=== PATIENT | male | born 1955 | race Caucasian/White ===

== ENCOUNTER 2020-05-05 13:31 | Inpatient (IN) | payer MEDICARE, OTHER ==
[2020-05-05] VITALS (13 sets, daily range): BP systolic 91–130; BP diastolic 52–82
[~2020-05-05] VITALS: Ht 175.3 cm; Wt 91.5 kg
[~2020-05-05 13:31] MED LIST: HEPARIN for IV BOLUS 10,000 UNIT/10 ML VIAL. IV ONE
[2020-05-05] MEDS ORDERED: MORPHINE SULFATE 4 MG/ML VIAL. IV ONE (13:32)
--- NOTE | 2020-05-05 13:40 | PHYS DOC ---
General Adult EDM: Chief Complaint: CHEST PAIN HPI: HPI: Patient is a 64 year old male who was brought here by EMS from home due to chest pain. Patient was outside cutting grass, he was pushing a lawnmower, he started having severe chest pain, associate with nausea and sweaty, he called EMS who then brought him here for evaluation. On route he did an EKG and a show ST segment elevation, they called here to activate code STEMI. Patient was given full dose aspirin by EMS, 1 dose of nitroglycerin, and 50 mcg of fentanyl IV on route. Upon arrival to the ER, patient was still in severe pain, moderate distress. Patient denies any history of heart disease. No history of diabetes Review of Systems: Review of Systems: Constitutional: Denies fever or chills. [] Eyes: Denies change in visual acuity. [] HENT: Denies nasal congestion or sore throat. [] Respiratory: Denies cough or shortness of breath. [] Cardiovascular: Positive for chest pain GI: Denies abdominal pain, positive for nausea, vomiting, no bloody stools or diarrhea. [] : Denies dysuria. [] Musculoskeletal: Denies back pain or joint pain. [] Integument: Denies rash. [] Neurologic: Denies headache, focal weakness or sensory changes. [] Endocrine: Denies polyuria or polydipsia. [] Lymphatic: Denies swollen glands. [] Psychiatric: Denies depression or anxiety. [] Heart Score: Risk Factors: Risk Factors: DM, Current or recent (<one month) smoker, HTN, HLP, family history of CAD, obesity. Risk Scores: Score 0 - 3: 2.5% MACE over next 6 weeks - Discharge Home Score 4 - 6: 20.3% MACE over next 6 weeks - Admit for Clinical Observation Score 7 - 10: 72.7% MACE over next 6 weeks - Early Invasive Strategies Physical Exam: PE: Constitutional: Well developed, well nourished, in moderate acute distress, non-toxic appearance. [] HENT: Normocephalic, atraumatic, bilateral external ears normal, oropharynx moist, no oral exudates, nose normal. [] Eyes: PERRLA, EOMI, conjunctiva normal, no discharge. [] Neck: Normal range of motion, no tenderness, supple, no stridor. [] Cardiovascular:Heart rate regular rhythm, no murmur [] Lungs & Thorax: Bilateral breath sounds clear to auscultation [] Abdomen: Bowel sounds normal, soft, no tenderness, no masses, no pulsatile masses. [] Skin: Warm, diaphoresis Back: No tenderness, no CVA tenderness. [] Extremities: No tenderness, no cyanosis, no clubbing, ROM intact, no edema. [] Neurologic: Alert and oriented X 3, normal motor function, normal sensory function, no focal deficits noted. [] Psychologic: Affect normal, judgement normal, mood normal. [] EKG: EKG: EKG was done at 1331, heart rate at 73 bpm, ST segment elevation on V2 V3 V4 V5 V6 , I. Radiology/Procedures: Radiology/Procedures: [] Course & Med Decision Making: Course & Med Decision Making Pertinent Labs and Imaging studies reviewed. (See chart for details) Patient is a 64-year-old male who was brought here emergently by EMS due to chest pain, EKG consistent with STEMI. Cardiac Environmental Compliance Engineer team was present at the time patient arrival to ER, Dr. Monique, cutting machine operator helper took the patient to Environmental Compliance Engineer for intervention. Jose Armando Disclaimer: Dragon Disclaimer: This electronic medical record was generated, in whole or in part, using a voice recognition dictation system. Departure Departure Impression: Primary Impression: STEMI (ST elevation myocardial infarction) Disposition: ADMITTED INPATIENT Admitting Physician: YESIKA (Dr. Bro) Condition: STABLE Justicifation of Admission Dx: Justifications for Admission: Justification of Admission Dx: Yes OR: Acute STEMI ROCIO ORELLANA DO May 05, 2020 13:40
[2020-05-05] MEDS ORDERED: ONDANSETRON PF 4 MG/2 ML VIAL. IV PRN (13:45)
[2020-05-05] MEDS ORDERED: IODIXANOL 320 MG/ML 100 ML VIAL. ONE ×2 (13:49→14:20)
[2020-05-05] MEDS ORDERED: fentaNYL PF VIAL 100 MCG/2 ML VIAL ONE (13:49)
[2020-05-05] MEDS ORDERED: HEPARIN for IV BOLUS 10,000 UNIT/10 ML VIAL. ONE (13:50)
[2020-05-05] MEDS ORDERED: MIDAZOLAM HCL/PF 2 MG/2 ML VIAL. ONE (13:50)
[2020-05-05] MEDS ORDERED: BIVALIRUDIN 250 MG VIAL. IV ONE ×2 (13:59→14:30)
[2020-05-05] MEDS ORDERED: AMIODARONE 150 MG/3 ML VIAL ONE (14:08)
[2020-05-05] MEDS ORDERED: ONDANSETRON PF 4 MG/2 ML VIAL. ONE (14:15)
[2020-05-05] MEDS ORDERED: LIDOCAINE 1% Multi-Dose 20 ML VIAL. ONE (14:21)
[2020-05-05] MEDS ORDERED: AMIODARONE 150 MG/3 ML VIAL IVP ONE (14:30)
[2020-05-05] MEDS ORDERED: CLOPIDOGREL BISULFATE 75 MG TABLET PO ONE (14:30)
[2020-05-05] MEDS ORDERED: fentaNYL PF VIAL 100 MCG/2 ML VIAL IV ONE (14:30)
[2020-05-05] MEDS ORDERED: MIDAZOLAM HCL/PF 2 MG/2 ML VIAL. IV ONE (14:30)
[2020-05-05] MEDS ORDERED: LIDOCAINE 1% Multi-Dose 20 ML VIAL. INJ ONE (14:30)
[2020-05-05] MEDS ORDERED: ONDANSETRON PF 4 MG/2 ML VIAL. IVP ONE (14:30)
[2020-05-05] MEDS ORDERED: IODIXANOL 320 MG/ML 100 ML VIAL. IART ONE (14:30)
[2020-05-05] MEDS ORDERED: HEPARIN for IV BOLUS 10,000 UNIT/10 ML VIAL. IV PRN (14:30)
[2020-05-05] MEDS ORDERED: TICAGRELOR 90 MG TABLET. ONE (14:46)
[2020-05-05] MEDS: AMIODARONE 450 MG in IV DEXTROSE 5% 250 ML IV PRN ×2 (14:53→22:45)
[2020-05-05] MEDS ORDERED: CLOPIDOGREL BISULFATE 75 MG TABLET ONE (15:00)
[2020-05-05] MEDS ORDERED: CONTRAST GIVEN. MC PRN (15:00)
[2020-05-05] MEDS ORDERED: HEPARIN 25,000UTS/250ML PREMIX 250 ML IV ONE (15:08)
[2020-05-05] MEDS: HEPARIN 25,000UTS/250ML PREMIX 250 ML IV PRN (15:12)
[2020-05-05] MEDS ORDERED: 0.9 % SODIUM CHLORIDE 10 ML DISP.SYRIN. IV PRN ×2 (15:15→17:00)
[2020-05-05] MEDS ORDERED: TICAGRELOR 90 MG TABLET. PO ONE ×2 (15:15)
[2020-05-05] MEDS ORDERED: oxyCODONE/APAP 5/325 1 TAB TABLET PO PRN (15:15)
[2020-05-05] MEDS ORDERED: ATROPINE 0.5 MG/5 ML DISP.SYRINGE. IV PRN (15:15)
[2020-05-05] MEDS ORDERED: NITROGLYCERIN SUBLINGUAL 0.4 MG BOTTLE OF 25. SL PRN (15:15)
[2020-05-05] MEDS ORDERED: LACTULOSE 20 GM/30 ML SOLUTION. PO PRN (17:00)
[2020-05-05] MEDS ORDERED: ONDANSETRON PF 4 MG/2 ML VIAL. IVP PRN (17:00)
[2020-05-05] MEDS ORDERED: ACETAMINOPHEN 325 MG TABLET. PO PRN (17:00)
--- NOTE | 2020-05-05 17:03 | PDOC1 ---
History and Physical Date of Admission Date of Admission May 05, 2020 Identification/Chief Complaint Chief Complaint My chest hurt Source Source: Chart review, Patient History of Present Illness History of Present Illness Patient is a 64-year-old gentleman with past medical history of Mnire's disease who recently had a procedure in order to surgically treat his condition. Patient was in his usual state of health until this afternoon when he was working in his yard mowing the lawn and came back inside the house due to the heat when he started experiencing chest discomfort over the precordial area which was of a pressure like nature 10 out of 10 intensity with associated diaphoresis tingling in his arms sensation of impending doom nausea. Patient reports having the symptoms lasted at least an hour and he decided to call the EMS services due to the progressive nature of his symptoms. The patient did not report shortness of breath no loss of consciousness no recent angina type of symptoms were reported prior to this incident. Patient denies any recent upper respiratory tract infections no headache blurred vision no strokelike symptoms no palpitations no abdominal pain no nausea vomiting or diarrhea prior to the incident no lower extremity edema no orthopnea no paroxysmal nocturnal dyspnea has been reported. The patient was evaluated in the emergency department found to have a STEMI and was quickly taken to the cardiac Personal Health Coach. Patient is being seen in the ICU at the present time he is on an aortic balloon pump. Patient is not experiencing chest pain at the time of my visit and is hemodynamically stable. Plan of care has been explained detail and all of his concerns were addressed to the best my ability Past Medical History Past Medical History Mnire disease Osteoarthritis Past Surgical History Past Surgical History: Total hip replacement Family History Family History: Other (Reviewed and found negative noncontributory to the present) Current Problem List Problem List Problems Medical Problems: (1) STEMI (ST elevation myocardial infarction) Status: Acute Current Medications Current Medications Current Medications Medications (Trade) Dose Ordered Sig/Akin Start Time Stop Time Status Last Admin Dose Admin Amiodarone HCl (Cordarone) 150 mg 1X ONCE 05/05/20 14:30 05/05/20 14:36 DC 05/05/20 14:59 150 MG Amiodarone HCl 450 mg/Dextrose 259 ml @ 0 mls/hr CONT PRN 05/05/20 14:30 05/05/20 14:53 33.3 MLS/HR Aspirin (Ecotrin) 81 mg DAILYWBKFT 05/06/20 08:00 Atorvastatin Calcium (Lipitor) 40 mg QHS 05/05/20 21:00 Atropine Sulfate (ATROPINE 0.5mg SYRINGE) 0.5 mg PRN 1X PRN 05/05/20 15:15 Bivalirudin (Angiomax) 250 mg 1X ONCE 05/05/20 14:30 05/05/20 14:49 DC 05/05/20 14:58 250 MG Clopidogrel Bisulfate (Plavix) 600 mg 1X ONCE 05/05/20 14:30 05/05/20 15:05 DC Dopamine HCl/ Dextrose 250 ml @ 17.006 mls/ hr 1X ONCE 05/05/20 14:45 05/06/20 05:27 05/05/20 14:06 51.019 MLS/HR Fentanyl Citrate (Fentanyl 2ml Vial) 12.5 mcg 1X ONCE 05/05/20 14:30 05/05/20 14:49 DC 05/05/20 15:00 12.5 MCG Heparin Sodium (Porcine) (Heparin Sodium) 4,000 unit 1X ONCE 05/05/20 13:31 05/05/20 14:57 DC 05/05/20 13:37 4,000 UNIT Heparin Sodium/ Dextrose 250 ml @ As Directed STK-MED ONCE 05/05/20 15:08 05/05/20 15:08 DC Heparin Sodium/ Sodium Chloride (HEPARIN for ARTERIAL LINE FLUSH) 1,000 unit 1X ONCE 05/05/20 14:30 05/05/20 14:49 DC 05/05/20 14:57 1,000 UNIT Info (CONTRAST GIVEN -- Rx MONITORING) 1 each PRN DAILY PRN 05/05/20 15:00 05/07/20 14:59 Iodixanol (Visipaque 320) 100 ml 1X ONCE 05/05/20 14:30 05/05/20 14:49 DC 05/05/20 14:57 215 ML Lidocaine HCl (Lidocaine 1% 20ml Vial) 18 ml 1X ONCE 05/05/20 14:30 05/05/20 14:49 DC 05/05/20 14:58 18 ML Lisinopril (Prinivil) 5 mg DAILY 05/06/20 09:00 Metoprolol Tartrate (Lopressor) 12.5 mg BID 05/05/20 21:00 Midazolam HCl (Versed) 1 mg 1X ONCE 05/05/20 14:30 05/05/20 14:49 DC 05/05/20 15:00 1 MG Morphine Sulfate (Morphine Sulfate) 4 mg 1X ONCE 05/05/20 13:32 05/05/20 14:57 DC 05/05/20 13:38 4 MG Nitroglycerin (Nitrostat) 0.4 mg PRN Q5MIN PRN 05/05/20 15:15 Ondansetron HCl (Zofran) 4 mg 1X ONCE 05/05/20 14:30 05/05/20 14:37 DC 05/05/20 14:59 4 MG Oxycodone/ Acetaminophen (Percocet 5/325) 2 tab PRN Q4HRS PRN 05/05/20 15:15 Sodium Chloride 1,000 ml @ 50 mls/hr Q20H 05/05/20 15:09 Sodium Chloride (Normal Saline Flush) 3 ml QSHIFT PRN 05/05/20 15:15 Ticagrelor (Brilinta) 180 mg 1X ONCE 05/05/20 15:15 05/05/20 15:16 DC Allergies Allergies Allergies Coded Allergies Type Severity Reaction Last Updated Verified No Known Drug Allergies 05/05/20 No ROS Review of System CONSTITUTIONAL: No fever or chills EYES: No recent changes SKIN: No rash or itching CARDIOVASCULAR: No chest pain, syncope, palpitations, or edema RESPIRATORY: No SOB or cough GASTROINTESTINAL: No nausea, vomiting or abdominal pain NEUROLOGICAL: No headaches or weakness ENDOCRINE: No cold or heat intolerance GENITOURINARY: No urgency or frequency of urination MUSCULOSKELETAL: No back pain or joint pain LYMPHATICS: No enlarged lymph nodes PSYCHIATRIC: No anxiety or depression Physical Exam Physical Exam GEN.: No apparent distress. Alert and oriented. HEENT: Head is normocephalic, atraumatic NECK: Supple. LUNGS: Clear to auscultation. HEART: RRR, S1, S2 present. Peripheral pulses intact ABDOMEN: Soft, nontender. Positive bowel sounds. EXTREMITIES: Without any cyanosis. NEUROLOGIC: Normal speech, normal tone PSYCHIATRIC: Normal affect, normal mood. SKIN: No ulcerations Vitals Vitals Vital Signs Date Time Temp Pulse Resp B/P (MAP) Pulse Ox O2 Delivery O2 Flow Rate FiO2 05/05/20 16:00 Nasal Cannula 2.0 05/05/20 16:00 97.6 98 15 126/69 (57) 96 97.6 VTE Prophylaxis Ordered VTE Prophylaxis Devices: Yes VTE Pharmacological Prophylaxi: Yes Assessment/Plan Assessment/Plan STEMI History of Menieres disease History of osteoarthritis Plan: Continue treatment plan as per bus info consultant We will resume home medications once available for review Telemetry Further recommendations based on the clinical course DVT prophylaxis with SCD and teds Justicifation of Admission Dx: Justifications for Admission: Justification of Admission Dx: Comment: (ST elevation myocardial infarction) ARIEL HALL MD May 05, 2020 17:03
--- NOTE | 2020-05-05 17:16 | PDOC2 ---
CONSULT Date of Consult Date of Consult DATE: 05/05/20 TIME: 17:09 Reason for Consult Reason for Consult: chest pain, STEMI Referring Physician Referring Physician: Dr. Bro Identification/Chief Complaint Chief Complaint Chest pain Source Source: Chart review, Patient History of Present Illness Reason for Visit: The patient is a 64-year-old male who developed chest pain earlier today after mowing his lawn. It was severe and he rated it 10 out of 10. It is associated by mild shortness of breath. When it did not resolve for 45 to 60 minutes he called paramedics. EKG by the paramedics suggested an anterior ST elevated myocardial infarction and a STEMI protocol was activated. The patient was met in the emergency room when he arrived. He continues to be in moderate distress. Repeat EKG confirmed ST elevation in the anterior leads suggestive of a LAD lesion. He was treated with aspirin and heparin. Risks and benefits of e mergency cardiac catheterization and possible revascularization were discussed with the patient. He agreed to proceed. Past Medical History Cardiovascular: HTN CENTRAL NERVOUS SYSTEM: Other (Mnire's disease) Past Surgical History Past Surgical History: Total hip replacement Family History Family History: Hypertension Current Problem List Problem List Problems Medical Problems: (1) STEMI (ST elevation myocardial infarction) Status: Acute Current Medications Current Medications Current Medications Ondansetron HCl (Zofran) 4 mg PRN Q8HRS PRN IV NAUSEA/VOMITING; Start 05/05/20 at 13:45; Stop 05/06/20 at 13:44 Iodixanol (Visipaque 320) 100 ml STK-MED ONCE .ROUTE ; Start 05/05/20 at 13:49; Stop 05/05/20 at 13:49; Status DC Fentanyl Citrate (Fentanyl 2ml Vial) 100 mcg STK-MED ONCE .ROUTE ; Start 05/05/20 at 13:49; Stop 05/05/20 at 13:49; Status DC Midazolam HCl (Versed) 2 mg STK-MED ONCE .ROUTE ; Start 05/05/20 at 13:50; Stop 05/05/20 at 13:50; Status DC Heparin Sodium (Porcine) (Heparin Sodium) 10,000 unit STK-MED ONCE .ROUTE ; Start 05/05/20 at 13:50; Stop 05/05/20 at 13:50; Status DC Bivalirudin (Angiomax) 250 mg STK-MED ONCE IV ; Start 05/05/20 at 13:59; Stop 05/05/20 at 13:59; Status DC Dopamine HCl/ Dextrose 250 ml @ As Directed STK-MED ONCE IV ; Start 05/05/20 at 14:02; Stop 05/05/20 at 14:02; Status DC Amiodarone HCl (Cordarone) 150 mg STK-MED ONCE .ROUTE ; Start 05/05/20 at 14:08; Stop 05/05/20 at 14:09; Status DC Ondansetron HCl (Zofran) 4 mg STK-MED ONCE .ROUTE ; Start 05/05/20 at 14:15; Stop 05/05/20 at 14:15; Status DC Heparin Sodium/ Sodium Chloride 500 ml @ As Directed STK-MED ONCE .ROUTE ; Start 05/05/20 at 14:16; Stop 05/05/20 at 14:17; Status DC Iodixanol (Visipaque 320) 100 ml STK-MED ONCE .ROUTE ; Start 05/05/20 at 14:20; Stop 05/05/20 at 14:20; Status DC Lidocaine HCl (Lidocaine 1% 20ml Vial) 20 ml STK-MED ONCE .ROUTE ; Start 0 at 14:21; Stop 05/05/20 at 14:21; Status DC Heparin Sodium/ Sodium Chloride (HEPARIN for ARTERIAL LINE FLUSH) 1,000 unit 1X ONCE IART Last administered on 05/05/20at 14:57; Start 05/05/20 at 14:30; Stop 05/05/20 at 14:49; Status DC Heparin Sodium/ Sodium Chloride (HEPARIN for ARTERIAL LINE FLUSH) 1,000 unit 1X ONCE IART Last administered on 05/05/20at 14:57; Start 05/05/20 at 14:30; Stop 05/05/20 at 14:49; Status DC Midazolam HCl (Versed) 1 mg 1X ONCE IV Last administered on 05/05/20at 15:00; Start 05/05/20 at 14:30; Stop 05/05/20 at 14:49; Status DC Fentanyl Citrate (Fentanyl 2ml Vial) 12.5 mcg 1X ONCE IV Last administered on 05/05/20at 15:00; Start 05/05/20 at 14:30; Stop 05/05/20 at 14:49; Status DC Iodixanol (Visipaque 320) 100 ml 1X ONCE IART Last administered on 05/05/20at 14:57; Start 05/05/20 at 14:30; Stop 05/05/20 at 14:49; Status DC Bivalirudin (Angiomax) 250 mg 1X ONCE IV Last administered on 05/05/20at 14:58; Start 05/05/20 at 14:30; Stop 05/05/20 at 14:49; Status DC Clopidogrel Bisulfate (Plavix) 600 mg 1X ONCE PO ; Start 05/05/20 at 14:30; Stop 05/05/20 at 15:05; Status DC Lidocaine HCl (Lidocaine 1% 20ml Vial) 18 ml 1X ONCE INJ Last administered on 05/05/20at 14:58; Start 05/05/20 at 14:30; Stop 05/05/20 at 14:49; Status DC Amiodarone HCl (Cordarone) 150 mg 1X ONCE IVP Last administered on 05/05/20at 14:59; Start 05/05/20 at 14:30; Stop 05/05/20 at 14:36; Status DC Amiodarone HCl 450 mg/Dextrose 259 ml @ 0 mls/hr CONT PRN IV SEE I/O RECORD Last administered on 05/05/20at 14:53; Start 05/05/20 at 14:30 Ondansetron HCl (Zofran) 4 mg 1X ONCE IVP Last administered on 05/05/20at 14:59; Start 05/05/20 at 14:30; Stop 05/05/20 at 14:37; Status DC Heparin Sodium/ Dextrose 250 ml @ 10 mls/hr CONT PRN IV PER PROTOCOL Last administered on 05/05/20at 15:12; Start 05/05/20 at 14:30 Heparin Sodium (Porcine) (Heparin Sodium) 2,250 unit PRN Q6HRS PRN IV FOR UFH LEVEL LESS THAN 0.2; Start 05/05/20 at 14:30 Heparin Sodium/ Sodium Chloride (HEPARIN for ARTERIAL LINE FLUSH) 1,000 unit 1X ONCE IART Last administered on 05/05/20at 14:57; Start 05/05/20 at 14:30; Stop 05/05/20 at 14:49; Status DC Dopamine HCl/ Dextrose 250 ml @ 17.006 mls/ hr 1X ONCE IV Last administered on 05/05/20at 14:06; Start 05/05/20 at 14:45; Stop 05/06/20 at 05:27 Heparin Sodium (Porcine) (Heparin Sodium) 4,000 unit 1X ONCE IV Last administered on 05/05/20at 13:37; Start 05/05/20 at 13:31; Stop 05/05/20 at 14:57; Status DC Morphine Sulfate (Morphine Sulfate) 4 mg 1X ONCE IV Last administered on 05/05/20at 13:38; Start 05/05/20 at 13:32; Stop 05/05/20 at 14:57; Status DC Ticagrelor (Brilinta) 90 mg STK-MED ONCE .ROUTE ; Start 05/05/20 at 14:46; Stop 05/05/20 at 14:47; Status DC Info (CONTRAST GIVEN -- Rx MONITORING) 1 each PRN DAILY PRN MC SEE COMMENTS; Start 05/05/20 at 15:00; Stop 05/07/20 at 14:59 Ticagrelor (Brilinta) 180 mg 1X ONCE PO Last administered on 05/05/20at 15:11; Start 05/05/20 at 15:15; Stop 05/05/20 at 15:16; Status DC Ticagrelor (Brilinta) 180 mg 1X ONCE PO ; Start 05/05/20 at 15:15; Stop 0 at 15:16; Status DC Heparin Sodium/ Dextrose 250 ml @ As Directed STK-MED ONCE IV ; Start 05/05/20 at 15:08; Stop 05/05/20 at 15:08; Status DC Sodium Chloride (Normal Saline Flush) 3 ml QSHIFT PRN IV AFTER MEDS AND BLOOD DRAWS; Start 05/05/20 at 15:15 Sodium Chloride 1,000 ml @ 50 mls/hr Q20H IV ; Start 05/05/20 at 15:09 Aspirin (Ecotrin) 81 mg DAILYWBKFT PO ; Start 05/06/20 at 08:00 Metoprolol Tartrate (Lopressor) 12.5 mg BID PO ; Start 05/05/20 at 21:00 Lisinopril (Prinivil) 5 mg DAILY PO ; Start 05/06/20 at 09:00 Atorvastatin Calcium (Lipitor) 40 mg QHS PO ; Start 05/05/20 at 21:00 Nitroglycerin (Nitrostat) 0.4 mg PRN Q5MIN PRN SL CHEST PAIN; Start 05/05/20 at 15:15 Atropine Sulfate (ATROPINE 0.5mg SYRINGE) 0.5 mg PRN 1X PRN IV BRADYCARDIA; Start 05/05/20 at 15:15 Oxycodone/ Acetaminophen (Percocet 5/325) 2 tab PRN Q4HRS PRN PO MODERATE PAIN, SEVERE PAIN; Start 05/05/20 at 15:15 Acetaminophen (Tylenol) 650 mg PRN Q6HRS PRN PO Headaches, Temp > 101.5'; Start 05/05/20 at 17:00 Lorazepam (Ativan Inj) 0.5 mg PRN Q6HRS PRN IVP ANXIETY / AGITATION; Start 05/05/20 at 17:00 Ondansetron HCl (Zofran) 4 mg PRN Q6HRS PRN IVP NAUSEA/VOMITING; Start 05/05/20 at 17:00 Sodium Chloride (Normal Saline Flush) 3 ml QSHIFT PRN IV AFTER MEDS AND BLOOD DRAWS; Start 05/05/20 at 17:00; Status UNV Acetaminophen/ Hydrocodone Bitart (Lortab 5/325) 1 tab PRN Q4HRS PRN PO MILD PAIN, 2ND CHOICE; Start 05/05/20 at 17:00; Status UNV Morphine Sulfate (Morphine Sulfate) 1 mg PRN Q1HR PRN IV PAIN; Start 05/05/20 at 17:00; Status UNV Senna/Docusate Sodium (Senna Plus) 1 tab BID PO ; Start 05/05/20 at 21:00; Status UNV Lactulose (Lactulose) 20 gm PRN Q12HR PRN PO CONSTIPATION; Start 05/05/20 at 17:00; Status UNV Allergies Allergies: Coded Allergies: No Known Drug Allergies (Unverified , 05/05/20) ROS Respiratory: YES: Shortness of breath Cardiovascular: yes Chest Pain Physical Exam General: moderate distress HEENT: Atraumatic Lungs: Clear to auscultation Heart: Other (Mildly tachycardic) Abdomen: Normal bowel sounds Vitals VITALS Vital Signs Date Time Temp Pulse Resp B/P (MAP) Pulse Ox O2 Delivery O2 Flow Rate FiO2 05/05/20 16:00 Nasal Cannula 2.0 05/05/20 16:00 97.6 98 15 126/69 (88) 96 97.6 Assessment/Plan Assessment/Plan 1. Presentation and EKG consistent with an anterior ST elevated myocardial infarction. Patient was treated with heparin and aspirin. Initial labs were drawn. Risks and benefits of cardiac catheterization including possible intervention were discussed with the patient. After discussion the patient gave informed consent to proceed. The patient was brought emergently to the cardiac catheterization lab. BRITTANIE GRIFFIN MD May 05, 2020 17:16
[2020-05-05] MEDS ORDERED: MULT-245 PO (18:39)
[2020-05-05] MEDS ORDERED: VITA1TAB31 PO (18:39)
[2020-05-05] MEDS ORDERED: FAMO-63 PO (18:39)
[2020-05-05] MEDS ORDERED: SIMV40TA18 PO (18:39)
[2020-05-05] MEDS ORDERED: SERT50TA PO (18:39)
[2020-05-05] MEDS ORDERED: SILO8CAP2 PO (18:39)
[2020-05-05 19:06] LABS: BASO % 0 % (0-3); EOS % 0 % (0-3); HEMOGLOBIN 16.1 g/dL (13.0-17.5); LYMPH # 0.6 x10^3/uL (1.0-4.8); LYMPH % 4 % (24-48); MEAN CORPUSCULAR HEMOGLOBIN 32 pg (25-35); MEAN CORPUSCULAR HGB CONC 35 g/dL (31-37); MEAN CORPUSCULAR VOLUME 91 fL (79-100); MONO % 6 % (0-9); NEUT # 15.9 x10^3/uL (1.8-7.7); NEUT % 90 % (31-73); PLATELET COUNT 242 x10^3/uL (140-400); RED BLOOD COUNT 5.04 x10^6/uL (4.30-5.70); RED CELL DISTRIBUTION WIDTH 12.9 % (11.5-14.5); WHITE BLOOD COUNT 17.6 x10^3/uL (4.0-11.0)
[2020-05-05 19:24] LABS: CALCIUM 8.7 mg/dL (8.5-10.1); CREATININE 1.4 mg/dL (0.7-1.3); GFR 50.9; POTASSIUM 3.9 mmol/L (3.5-5.1)
[2020-05-05 19:26] LABS: PROTHROMBIN TIME PATIENT 14.5 SEC (11.7-14.0)
[2020-05-05 19:30] LABS: ALBUMIN 4.1 g/dL (3.4-5.0); ALBUMIN/GLOBULIN RATIO 1.3 (1.0-1.7); TOTAL BILIRUBIN 1.1 mg/dL (0.2-1.0); TOTAL PROTEIN 7.3 g/dL (6.4-8.2)
[2020-05-05 19:50] LABS: % BANDS 2 % (0-9); % LYMPHS 4 % (24-48); % MONOS 4 % (0-10); % SEGS 90 % (35-66); PLT ESTIMATE ADEQUATE (ADEQUATE)
[2020-05-05] MEDS: SENNOSIDES/DOCUSATE 8.6/50MG TABLET. PO SCH (20:50)
[2020-05-05] MEDS: IV NORMAL SALINE 1000ML BAG 1,000 ML IV SCH (20:50)
[2020-05-05] MEDS: ATORVASTATIN CALCIUM 20 MG TABLET PO SCH (20:50)
[2020-05-05] MEDS: METOPROLOL TART IMMED RELEASE 25 MG TABLET. PO SCH (20:51)
[2020-05-05] MEDS: CYCLOBENZAPRINE 10 MG TABLET. PO PRN (23:23)
[2020-05-06] VITALS (40 sets, daily range): BP systolic 82–145; BP diastolic 43–86
[2020-05-06] MEDS: ALPRAZolam 0.25 MG TABLET PO PRN ×3 (00:36→14:42)
[2020-05-06] MEDS: MORPHINE SULFATE 2 MG/ML VIAL. IV PRN ×2 (00:58→04:01)
[2020-05-06 02:50] LABS: BASO % 0 % (0-3); CALCIUM 8.6 mg/dL (8.5-10.1); CREATININE 1.5 mg/dL (0.7-1.3); EOS % 0 % (0-3); HEMATOCRIT 47.7 % (39.0-53.0); HEMOGLOBIN 16.4 g/dL (13.0-17.5); LYMPH % 5 % (24-48); MEAN CORPUSCULAR HEMOGLOBIN 32 pg (25-35); MEAN CORPUSCULAR HGB CONC 34 g/dL (31-37); MEAN CORPUSCULAR VOLUME 92 fL (79-100); MONO # 1.2 x10^3/uL (0.0-1.1); MONO % 6 % (0-9); NEUT # 18.9 x10^3/uL (1.8-7.7); NEUT % 90 % (31-73); PLATELET COUNT 261 x10^3/uL (140-400); RED BLOOD COUNT 5.17 x10^6/uL (4.30-5.70); RED CELL DISTRIBUTION WIDTH 13.1 % (11.5-14.5); WHITE BLOOD COUNT 21.1 x10^3/uL (4.0-11.0)
--- NOTE | 2020-05-06 07:20 | EKG ---
[facility] [address] [place] [address] Test Date: 2020-05-06 Test Time: 06:34:32 Pat Name: JEANA ARSHAD Department: Room: Gender: M Organ Grinder: : 1955 Requested By: BRITTANIE GRIFFIN Order Number: [id number] Reading MD: Measurements Intervals [place] Rate: 60 P: 43 MS: 126 QRS: -15 QRSD: 80 T: 16 QT: 422 QTc: 422 Interpretive Statements SINUS RHYTHM LEFTWARD AXIS LOW LIMB LEAD VOLTAGE QRS(T) CONTOUR ABNORMALITY CONSISTENT WITH ANTERIOR INFARCT POSSIBLY RECENT ABNORMAL ECG RI6.02 No previous ECG available for comparison
[2020-05-06] MEDS: ASPIRIN ENTERIC COATED 81 MG TABLET.DR. PO SCH (08:00)
[2020-05-06] MEDS: CYCLOBENZAPRINE 10 MG TABLET. PO PRN (08:23)
[2020-05-06] MEDS: SENNOSIDES/DOCUSATE 8.6/50MG TABLET. PO SCH ×2 (08:23→21:10)
[2020-05-06] MEDS: HYDROcodone/APAP 5/325MG 1 TAB TABLET PO PRN ×2 (08:24→14:45)
[2020-05-06 08:35] LABS: ALBUMIN 3.6 g/dL (3.4-5.0); DIRECT BILIRUBIN 0.2 mg/dL (0.0-0.2); TOTAL BILIRUBIN 0.8 mg/dL (0.2-1.0); TOTAL PROTEIN 6.7 g/dL (6.4-8.2)
[2020-05-06 08:37] LABS: CHOLESTEROL/HDL RATIO 4.6
[2020-05-06] MEDS: METOPROLOL TART IMMED RELEASE 25 MG TABLET. PO SCH ×3 (09:00→19:50)
[2020-05-06] MEDS ORDERED: LISINOPRIL 5 MG TABLET. PO SCH ×2 (09:00→13:00)
[2020-05-06] MEDS: TICAGRELOR 90 MG TABLET. PO SCH ×2 (09:24→21:10)
[2020-05-06] MEDS: HEPARIN 25,000UTS/250ML PREMIX 250 ML IV PRN (10:23)
[2020-05-06] MEDS: IV NORMAL SALINE 1000ML BAG 1,000 ML IV SCH ×2 (10:36→19:00)
--- NOTE | 2020-05-06 10:56 | PDOC ---
CARDIO Progress Notes Date and Time Date of Service 05/06/2020 Time of Evaluation 0940 Subjective Subjective: No Chest Pain, No shortness of breath, No Palpitations, Other (lower back discomfort but tolerable) Vitals Vitals Vital Signs Date Time Temp Pulse Resp B/P (MAP) Pulse Ox O2 Delivery O2 Flow Rate FiO2 05/06/20 09:24 5 Nasal Cannula 2.0 05/06/20 09:00 56 102/52 (69) 05/06/20 08:24 16 05/06/20 07:00 98.0 98.0 Weight Weight [ ] Input and Output Intake and Output Intake and Output 05/06/20 07:00 Intake Total 2484 ml Output Total 2360 ml Balance 124 ml Intake Oral 100 ml IV Total 2384 ml Output Urine Total 1960 ml Emesis 400 ml Laboratory Labs Laboratory Tests Test 05/05/20 18:45 05/05/20 18:47 05/06/20 01:30 05/06/20 07:40 White Blood Count 17.6 x10^3/uL (4.0-11.0) 21.1 x10^3/uL (4.0-11.0) Red Blood Count 5.04 x10^6/uL (4.30-5.70) 5.17 x10^6/uL (4.30-5.70) Hemoglobin 16.1 g/dL (13.0-17.5) 16.4 g/dL (13.0-17.5) Hematocrit 46.0 % (39.0-53.0) 47.7 % (39.0-53.0) Mean Corpuscular Volume 91 fL (79-100) 92 fL (79-100) Mean Corpuscular Hemoglobin 32 pg (25-35) 32 pg (25-35) Mean Corpuscular Hemoglobin Concent 35 g/dL (31-37) 34 g/dL (31-37) Red Cell Distribution Width 12.9 % (11.5-14.5) 13.1 % (11.5-14.5) Platelet Count 242 x10^3/uL (140-400) 261 x10^3/uL (140-400) Neutrophils (%) (Auto) 90 % (31-73) 90 % (31-73) Lymphocytes (%) (Auto) 4 % (24-48) 5 % (24-48) Monocytes (%) (Auto) 6 % (0-9) 6 % (0-9) Eosinophils (%) (Auto) 0 % (0-3) 0 % (0-3) Basophils (%) (Auto) 0 % (0-3) 0 % (0-3) Neutrophils # (Auto) 15.9 x10^3/uL (1.8-7.7) 18.9 x10^3/uL (1.8-7.7) Lymphocytes # (Auto) 0.6 x10^3/uL (1.0-4.8) 1.0 x10^3/uL (1.0-4.8) Monocytes # (Auto) 1.0 x10^3/uL (0.0-1.1) 1.2 x10^3/uL (0.0-1.1) Eosinophils # (Auto) 0.0 x10^3/uL (0.0-0.7) 0.0 x10^3/uL (0.0-0.7) Basophils # (Auto) 0.0 x10^3/uL (0.0-0.2) 0.0 x10^3/uL (0.0-0.2) Segmented Neutrophils % 90 % (35-66) Band Neutrophils % 2 % (0-9) Lymphocytes % 4 % (24-48) Monocytes % 4 % (0-10) Platelet Estimate Adequate (ADEQUATE) Prothrombin Time 14.5 SEC (11.7-14.0) Prothromb Time International Ratio 1.2 (0.8-1.1) Activated Partial Thromboplast Time 52 SEC (24-38) Sodium Level 139 mmol/L (136-145) 138 mmol/L (136-145) Potassium Level 3.9 mmol/L (3.5-5.1) 4.0 mmol/L (3.5-5.1) Chloride Level 104 mmol/L (98-107) 103 mmol/L (98-107) Carbon Dioxide Level 22 mmol/L (21-32) 24 mmol/L (21-32) Anion Gap 13 (6-14) 11 (6-14) Blood Urea Nitrogen 12 mg/dL (8-26) 12 mg/dL (8-26) Creatinine 1.4 mg/dL (0.7-1.3) 1.5 mg/dL (0.7-1.3) Estimated GFR (Cockcroft-Gault) 50.9 47.0 BUN/Creatinine Ratio 9 (6-20) Glucose Level 145 mg/dL (70-99) 158 mg/dL (70-99) Calcium Level 8.7 mg/dL (8.5-10.1) 8.6 mg/dL (8.5-10.1) Magnesium Level 2.0 mg/dL (1.8-2.4) Total Bilirubin 1.1 mg/dL (0.2-1.0) 0.8 mg/dL (0.2-1.0) Aspartate Amino Transf (AST/SGOT) 659 U/L (15-37) 560 U/L (15-37) Alanine Aminotransferase (ALT/SGPT) 126 U/L (16-63) 132 U/L (16-63) Alkaline Phosphatase 71 U/L (46-116) 63 U/L (46-116) Troponin I Quantitative 321.556 ng/mL (0.000-0.055) 209.360 ng/mL (0.000-0.055) 169.399 ng/mL (0.000-0.055) WT-Dbk-P-Type Natriuretic Peptide 345 pg/mL (0-124) Total Protein 7.3 g/dL (6.4-8.2) 6.7 g/dL (6.4-8.2) Albumin 4.1 g/dL (3.4-5.0) 3.6 g/dL (3.4-5.0) Albumin/Globulin Ratio 1.3 (1.0-1.7) Lipase 76 U/L (73-393) Heparin Anti-Xa Act, Unfractionated 0.18 IU/mL (0.30-0.70) 0.51 IU/mL (0.30-0.70) 0.47 IU/mL (0.30-0.70) Direct Bilirubin 0.2 mg/dL (0.0-0.2) Triglycerides Level 200 mg/dL (0-150) Cholesterol Level 204 mg/dL (0-200) LDL Cholesterol, Calculated 120 mg/dL (0-100) VLDL Cholesterol, Calculated 40 mg/dL (0-40) Non-HDL Cholesterol Calculated 160 mg/dL (0-129) HDL Cholesterol 44 mg/dL (40-60) Cholesterol/HDL Ratio 4.6 Thyroid Stimulating Hormone (TSH) 0.364 uIU/mL (0.358-3.74) Physical Exam HEENT: Neck Supple W Full Motion Chest: Symmetric LUNGS: Other (diminished bases) Heart: RRR (SR) Abdomen: Soft N/T Extremities: No Edema, No Calf Tenderness Neurology: alert, oriented, follow commands Other Exams IABP in place, right groin sheath site intact, no erythema or swelling, neurova scular status to bilateral LE intact. Assessment Assessment 1. Anterior STEMI: S/P PCI/ERICKA to LAD 2. HLP: not on goal 3. Transaminitis: due to cardiogenic shock 4. Cardiogenic shock 5. Tobaccoism 6. Mild AMBER 7. Reperfusion arrhythmias: NSVTs. Recommendations 1. ASA/brilinta 2. TTE today. Continue IABP 1:1 ration and will reevaluate tomorrow for possible removal 3. Initiate GDMT per BP trend. Optimize statin. Hold ACEi/BB for now with low BP trend. IV hydrate as tolerated. 4. Cardiac rehab, smoking cessation 5. Heparin drip, dopamine, and amiodarone. Justicifation of Admission Dx: Justifications for Admission: Justification of Admission Dx: Yes [place]: Acute STEMI HELLEN MARIA APRN May 06, 2020 10:56
--- NOTE | 2020-05-06 11:00 | CARD ---
MR#: [id number] Date of Study: 05/06/2020 Ordering Physician: HELLEN MARIA, Referring Physician: HELLEN MARIA, Tech: Ana Paula Cedeño [facility] APPROVED REPORT EXAM: Two-dimensional and M-mode echocardiogram with Doppler and color Doppler. Other Information Quality : Good INDICATION STEMI 2D DIMENSIONS RVDd2.9 (2.9-3.5cm)Left Atrium(2D)3.0 (1.6-4.0cm) IVSd0.9 (0.7-1.1cm)Aortic Root(2D)3.3 (2.0-3.7cm) LVDd5.6 (3.9-5.9cm)LVOT Diameter2.1 (1.8-2.4cm) PWd0.8 (0.7-1.1cm)LVDs5.3 (2.5-4.0cm) FS (%) 5.3 %SV18.0 ml Aortic Valve AoV Peak Beto.130.1cm/sAoV VTI21.3cm AO Peak GR.6.8mmHgLVOT VTI 16.62cm AO Mean GR.4mmHgAVA (VTI)2.59cm2 Mitral Valve MV E Fszjogvl64.3cm/sMV DECEL EBXL478iu MV A Jtzvinnk89.3cm/sE/A Ratio0.7 TDI Lateral E' P. V5.79cm/sMedial E' P. V6.31cm/s E/Lateral E'9.0E/Medial E'8.3 Tricuspid Valve TR P. Uwivogmt625di/sRAP SCIHIUFV2hpYm TR Peak Gr.71oyRvXJNZ92azOt Pulmonary Vein S1 Drhspgpt10.2cm/sS2 Zhrzioan27.42cm/s D2 Kumjrrwk93.4cm/s LEFT VENTRICLE The Left Ventricle is mildly dilated. There is normal left ventricular wall thickness. Left ventricle systolic function is severely impaired. The Ejection Fraction is 20-25%. There is apical akinesis Th ere is severe hypokinesis of the distal anterior and mid to distal septal busch. Transmitral Doppler flow pattern is Grade I-abnormal relaxation pattern. RIGHT VENTRICLE The right ventricle is normal size. The right ventricular systolic function is normal. ATRIA The left atrium size is normal. The right atrium size is normal. The interatrial septum is intact wit h no evidence for an atrial septal defect or patent foramen ovale as noted on 2-D or Doppler imaging. AORTIC VALVE The aortic valve is calcified but opens well. Doppler and Color Flow revealed no significant aortic r egurgitation. There is no significant aortic valvular stenosis. MITRAL VALVE The mitral valve is normal in structure and function. There is no evidence of mitral valve prolapse b ut the anterior mitral valve leaflet is redundant. There is no mitral valve stenosis. Doppler and Col or Flow revealed no mitral valve regurgitation noted. TRICUSPID VALVE The tricuspid valve is normal in structure and function. Doppler and Color Flow revealed trace tricus pid regurgitation. There is mild pulmonary hypertension. The PA pressure was estimated at 33 mmHg. Th ere is no tricuspid valve stenosis. PULMONIC VALVE The pulmonic valve is not well visualized. Doppler and Color Flow revealed no pulmonic valvular regur gitation. There is no pulmonic valvular stenosis. GREAT VESSELS The aortic root is normal in size. The ascending aorta is normal in size. The IVC is normal in size a nd collapses >50% with inspiration. PERICARDIAL EFFUSION There is no evidence of significant pericardial effusion. Critical Notification Critical Value: No <Conclusion> The Left Ventricle is mildly dilated. Left ventricle systolic function is severely impaired. The Ejection Fraction is 20-25%. There is apical akinesis There is severe hypokinesis of the distal anterior and mid to distal septal busch. Doppler and Color Flow revealed no significant aortic regurgitation. There is no significant aortic valvular stenosis. There is no evidence of mitral valve prolapse but the anterior mitral valve leaflet is redundant. Doppler and Color Flow revealed trace tricuspid regurgitation. There is mild pulmonary hypertension. The PA pressure was estimated at 33 mmHg. Signed by : Satish Balderas MD Electronically Approved : 05/06/2020 11:00:00
--- NOTE | 2020-05-06 11:40 | NUR ---
7-1200 NN Fulminating back ache Repositioned w meds as ordered/ later assessment reported to have provided relief /improved comfort. level.Family members at bedside then home to rest. Bedside echo/results pending . Able to doze at long intervals with med assist. Phone report w Dr Alcala. Order changes noted. AM metoprolol held Remains on Dopamine at this time .See flow sheets for specifics. IVF increase to 100H. Output hlding form 30-50l/H now. Denies physical c/o chest kathy. Continue POC
--- NOTE | 2020-05-06 12:01 | CARD ---
MR#: [id number] Date of Study: 05/05/2020 Ordering Physician: BRITTANIE BALDERAS, Referring Physician: BRITTANIE BALDERAS, Angel: Marla Mabry RT (R) APPROVED REPORT Procedures Selective coronary angiogram 2 drug-eluting stents placed to a proximal LAD occlusion Intra-aortic balloon pump The patient is a 64-year-old male who developed chest pain at home. Paramedics were called and their EKG suggested an anterior ST elevated myocardial infarction. Aspirin and heparin were given. Wilbert dueñas was met upon arrival in the emergency room. Repeat EKG confirmed the diagnosis. Risks and benefi ts of emergency cardiac catheterization and possible revascularization were discussed with the ricprieto nilo. He agreed to proceed. After informed consent was obtained the patient was brought to the catheterization lab. The area the right femoral artery was prepared in the usual manner with Betadine, sterile draping and local anest hetic. An 18-gauge needle was used to enter the right femoral artery, a wire placed and a 6 [place] s milla placed over the wire. Using a J-wire,a 6 [place] Zachery right diagnostic catheter was passed to the ascending aorta and used to engage the right coronary artery. Sequential injections in various views were obtained. A 6 [place] XB 3.5 guide was used to engage the left coronary system. Sequenti al injections in various views were obtained. Injection showed proximal occlusion of the LAD. We pr oceeded to revascularize the vessel. Angiomax was used as per protocol. A PT choice wire was used to cross the lesion. Initial dilatatio ns were with a 3.0 x 20 Euphora balloon with 3 inflations at 8 jone for 20 seconds. Next a 3.0 x 26 R esolute [place] drug-eluting stent was deployed with 1 inflation at 15 jone for 15 seconds. This covered the bulk of the lesion, however some proximal disease was still present and a second 3.0 x 15 Resolu te [place] stent was deployed in overlapping fashion in the proximal part of the vessel. It was deploye d with 1 inflation at 17 jone for 15 seconds. 3 additional inflations covering the length of the sten t were employed with the same balloon at 17 seconds for 10 seconds each. Following this flow was res tored throughout the LAD including the distal vessel. The guiding system was removed. Secondary to the patient's decreased blood pressure and large anterior infarct an IABP was placed through the pre- existing right femoral sheath. It was placed without difficulty. The patient was treated with dopam ine, amiodarone and the balloon pump as noted above. He was then moved to the intensive care unit i n serious condition. Findings. Hemodynamics. Aortic root 94/60 Coronaries Left main. The left main was a normal size vessel without lesions. Left anterior descending. The LAD was a moderately large vessel with a proximal occlusion. Left circumflex. Left circumflex was a moderate size vessel with no significant lesions. Right coronary artery. The right coronary moderate was a moderate size vessel with a mid greater keeley n 90% lesion. <Conclusion> ST elevated myocardial infarction secondary to a proximal occlusion of the LAD. Successful stenting of the LAD lesion restoring flow with 0% residual lesion. Greater than 90% mid right coronary lesion. Successful placement of an aortic balloon pump. Fluoroscopy time 13.5 minutes. Dose 57 Gycm squared Contrast to 150 mil Sedation time 90 minutes Signed by : Brittanie Balderas MD Electronically Approved : 05/06/2020 12:00:42
--- NOTE | 2020-05-06 13:41 | PDOC ---
[facility] PROGRESS NOTE Chief Complaint Chief Complaint Acute STEMI History of Present Illness History of Present Illness 05/06/20 Patient seen and examined Chart reviewed Discussed with RN O2 nasal canula Troponin I: 209.36 EF: 20-35% Amiodarone drip Vitals/I&O Vitals/I&O: Vital Signs Date Time Temp Pulse Resp B/P (MAP) Pulse Ox O2 Delivery O2 Flow Rate FiO2 05/06/20 13:00 98.3 59 12 107/52 (70) 98 Room Air 98.3 05/06/20 12:07 2.0 I & O 05/05/20 05/05/20 05/06/20 15:00 23:00 07:00 Intake Total 100 ml 2384 ml Output Total 1825 ml 535 ml Balance -1725 ml 1849 ml Physical Exam General: Alert, Cooperative, No acute distress, moderate distress Heart: Regular rate, Normal S1, Normal S2, No murmurs, Other (Mildly tachycardic) Lungs: Clear Abdomen: Normal bowel sounds Extremities: Normal pulses Skin: No significant lesion Labs Labs: Laboratory Tests Test 05/05/20 18:45 05/05/20 18:47 05/06/20 01:30 05/06/20 07:40 White Blood Count 17.6 x10^3/uL (4.0-11.0) 21.1 x10^3/uL (4.0-11.0) Red Blood Count 5.04 x10^6/uL (4.30-5.70) 5.17 x10^6/uL (4.30-5.70) Hemoglobin 16.1 g/dL (13.0-17.5) 16.4 g/dL (13.0-17.5) Hematocrit 46.0 % (39.0-53.0) 47.7 % (39.0-53.0) Mean Corpuscular Volume 91 fL (79-100) 92 fL (79-100) Mean Corpuscular Hemoglobin 32 pg (25-35) 32 pg (25-35) Mean Corpuscular Hemoglobin Concent 35 g/dL (31-37) 34 g/dL (31-37) Red Cell Distribution Width 12.9 % (11.5-14.5) 13.1 % (11.5-14.5) Platelet Count 242 x10^3/uL (140-400) 261 x10^3/uL (140-400) Neutrophils (%) (Auto) 90 % (31-73) 90 % (31-73) Lymphocytes (%) (Auto) 4 % (24-48) 5 % (24-48) Monocytes (%) (Auto) 6 % (0-9) 6 % (0-9) Eosinophils (%) (Auto) 0 % (0-3) 0 % (0-3) Basophils (%) (Auto) 0 % (0-3) 0 % (0-3) Neutrophils # (Auto) 15.9 x10^3/uL (1.8-7.7) 18.9 x10^3/uL (1.8-7.7) Lymphocytes # (Auto) 0.6 x10^3/uL (1.0-4.8) 1.0 x10^3/uL (1.0-4.8) Monocytes # (Auto) 1.0 x10^3/uL (0.0-1.1) 1.2 x10^3/uL (0.0-1.1) Eosinophils # (Auto) 0.0 x10^3/uL (0.0-0.7) 0.0 x10^3/uL (0.0-0.7) Basophils # (Auto) 0.0 x10^3/uL (0.0-0.2) 0.0 x10^3/uL (0.0-0.2) Segmented Neutrophils % 90 % (35-66) Band Neutrophils % 2 % (0-9) Lymphocytes % 4 % (24-48) Monocytes % 4 % (0-10) Platelet Estimate Adequate (ADEQUATE) Prothrombin Time 14.5 SEC (11.7-14.0) Prothromb Time International Ratio 1.2 (0.8-1.1) Activated Partial Thromboplast Time 52 SEC (24-38) Sodium Level 139 mmol/L (136-145) 138 mmol/L (136-145) Potassium Level 3.9 mmol/L (3.5-5.1) 4.0 mmol/L (3.5-5.1) Chloride Level 104 mmol/L (98-107) 103 mmol/L (98-107) Carbon Dioxide Level 22 mmol/L (21-32) 24 mmol/L (21-32) Anion Gap 13 (6-14) 11 (6-14) Blood Urea Nitrogen 12 mg/dL (8-26) 12 mg/dL (8-26) Creatinine 1.4 mg/dL (0.7-1.3) 1.5 mg/dL (0.7-1.3) Estimated GFR (Cockcroft-Gault) 50.9 47.0 BUN/Creatinine Ratio 9 (6-20) Glucose Level 145 mg/dL (70-99) 158 mg/dL (70-99) Calcium Level 8.7 mg/dL (8.5-10.1) 8.6 mg/dL (8.5-10.1) Magnesium Level 2.0 mg/dL (1.8-2.4) Total Bilirubin 1.1 mg/dL (0.2-1.0) 0.8 mg/dL (0.2-1.0) Aspartate Amino Transf (AST/SGOT) 659 U/L (15-37) 560 U/L (15-37) Alanine Aminotransferase (ALT/SGPT) 126 U/L (16-63) 132 U/L (16-63) Alkaline Phosphatase 71 U/L (46-116) 63 U/L (46-116) Troponin I Quantitative 321.556 ng/mL (0.000-0.055) 209.360 ng/mL (0.000-0.055) 169.399 ng/mL (0.000-0.055) FF-Pno-K-Type Natriuretic Peptide 345 pg/mL (0-124) Total Protein 7.3 g/dL (6.4-8.2) 6.7 g/dL (6.4-8.2) Albumin 4.1 g/dL (3.4-5.0) 3.6 g/dL (3.4-5.0) Albumin/Globulin Ratio 1.3 (1.0-1.7) Lipase 76 U/L (73-393) Heparin Anti-Xa Act, Unfractionated 0.18 IU/mL (0.30-0.70) 0.51 IU/mL (0.30-0.70) 0.47 IU/mL (0.30-0.70) Direct Bilirubin 0.2 mg/dL (0.0-0.2) Triglycerides Level 200 mg/dL (0-150) Cholesterol Level 204 mg/dL (0-200) LDL Cholesterol, Calculated 120 mg/dL (0-100) VLDL Cholesterol, Calculated 40 mg/dL (0-40) Non-HDL Cholesterol Calculated 160 mg/dL (0-129) HDL Cholesterol 44 mg/dL (40-60) Cholesterol/HDL Ratio 4.6 Thyroid Stimulating Hormone (TSH) 0.364 uIU/mL (0.358-3.74) Assessment and Plan Assessmemt and Plan Problems Medical Problems: (1) STEMI (ST elevation myocardial infarction) Status: Acute Assessment: - Acute STEMI - Ejection fraction: 20-25% - On balloon pump - Mildly dilated LV Plan: - ICU monitoring - Heparin drip - Dopamine drip - Continue balloon pump - Trend labs - Home meds - Clear liquid diet - Plan is to go back to skilled labor and do an RCA stent Total time 32-minute Comment Review of Relevant I have reviewed the following items francisca (where applicable) has been applied. Medications: Current Medications Medications (Trade) Dose Ordered Sig/Akin Route PRN Reason Start Time Stop Time Status Last Admin Dose Admin Heparin Sodium/ Sodium Chloride (HEPARIN for ARTERIAL LINE FLUSH) 1,000 unit 1X ONCE IART 05/05/20 14:30 05/05/20 14:49 DC 05/05/20 14:57 Heparin Sodium/ Sodium Chloride (HEPARIN for ARTERIAL LINE FLUSH) 1,000 unit 1X ONCE IART 05/05/20 14:30 05/05/20 14:49 DC 05/05/20 14:57 Midazolam HCl (Versed) 1 mg 1X ONCE IV 05/05/20 14:30 05/05/20 14:49 DC 05/05/20 15:00 Fentanyl Citrate (Fentanyl 2ml Vial) 12.5 mcg 1X ONCE IV 05/05/20 14:30 05/05/20 14:49 DC 05/05/20 15:00 Iodixanol (Visipaque 320) 100 ml 1X ONCE IART 05/05/20 14:30 05/05/20 14:49 DC 05/05/20 14:57 Bivalirudin (Angiomax) 250 mg 1X ONCE IV 05/05/20 14:30 05/05/20 14:49 DC 05/05/20 14:58 Lidocaine HCl (Lidocaine 1% 20ml Vial) 18 ml 1X ONCE INJ 05/05/20 14:30 05/05/20 14:49 DC 05/05/20 14:58 Amiodarone HCl (Cordarone) 150 mg 1X ONCE IVP 05/05/20 14:30 05/05/20 14:36 DC 05/05/20 14:59 Amiodarone HCl 450 mg/Dextrose 259 ml @ 0 mls/hr CONT PRN IV SEE I/O RECORD 05/05/20 14:30 05/05/20 22:46 DC 05/05/20 22:45 Ondansetron HCl (Zofran) 4 mg 1X ONCE IVP 05/05/20 14:30 05/05/20 14:37 DC 05/05/20 14:59 Heparin Sodium/ Dextrose 250 ml @ 10 mls/hr CONT PRN IV PER PROTOCOL 05/05/20 14:30 05/06/20 10:23 Heparin Sodium (Porcine) (Heparin Sodium) 2,250 unit PRN Q6HRS PRN IV FOR UFH LEVEL LESS THAN 0.2 05/05/20 14:30 05/05/20 19:42 Heparin Sodium/ Sodium Chloride (HEPARIN for ARTERIAL LINE FLUSH) 1,000 unit 1X ONCE IART 05/05/20 14:30 05/05/20 14:49 DC 05/05/20 14:57 Dopamine HCl/ Dextrose 250 ml @ 17.006 mls/ hr 1X ONCE IV 05/05/20 14:45 05/06/20 05:27 DC 05/05/20 14:06 Ticagrelor (Brilinta) 180 mg 1X ONCE PO 05/05/20 15:15 05/05/20 15:16 DC 05/05/20 15:11 Ticagrelor (Brilinta) 180 mg 1X ONCE PO 05/05/20 15:15 05/05/20 15:16 DC 05/05/20 17:45 Sodium Chloride 1,000 ml @ 50 mls/hr Q20H IV 05/05/20 15:09 05/06/20 10:41 DC 05/06/20 10:36 Aspirin (Ecotrin) 81 mg DAILYWBKFT PO 05/06/20 08:00 05/06/20 08:00 Metoprolol Tartrate (Lopressor) 12.5 mg BID PO 05/05/20 21:00 05/06/20 10:56 DC 05/05/20 20:51 Atorvastatin Calcium (Lipitor) 40 mg QHS PO 05/05/20 21:00 05/05/20 20:50 Ondansetron HCl (Zofran) 4 mg PRN Q6HRS PRN IVP NAUSEA/VOMITING 05/05/20 17:00 05/05/20 21:12 Acetaminophen/ Hydrocodone Bitart (Lortab 5/325) 1 tab PRN Q4HRS PRN PO MILD PAIN 1-3 05/05/20 17:00 05/06/20 08:24 Morphine Sulfate (Morphine Sulfate) 1 mg PRN Q1HR PRN IV PAIN 05/05/20 17:00 05/06/20 04:01 Senna/Docusate Sodium (Senna Plus) 1 tab BID PO 05/05/20 21:00 05/06/20 08:23 Dopamine HCl/ Dextrose 250 ml @ 16.988 mls/ hr CONT PRN IV SEE I/O RECORD 05/05/20 20:00 05/06/20 10:35 Alprazolam (Xanax) 0.25 mg PRN Q6HRS PRN PO ANXIETY / AGITATION 05/05/20 20:45 05/06/20 08:23 Cyclobenzaprine HCl (Flexeril) 10 mg PRN DAILY PRN PO MUSCLE SPASMS 05/05/20 20:45 05/06/20 08:23 Ticagrelor (Brilinta) 90 mg BID PO 05/06/20 09:00 05/06/20 09:24 Justicifation of Admission Dx: Justifications for Admission: Justification of Admission Dx: Yes CT: Acute STEMI ARELIS BOLANOS III DO May 06, 2020 13:41
--- NOTE | 2020-05-06 14:21 | NUR ---
SS following for discharge planning. SS reviewed pt chart and discussed with pt RN. Pt is from home with spouse and is currently requiring oxygen. Per RN, pt went [facility] 05[facility]. Pt had two stents. Pt has 90% RCA occlusion and needs stent. SS will continue to follow for discharge planning.
--- NOTE | 2020-05-06 14:42 | RAD ---
INDICATION: Reason: cardiomyopathy / Spl. Instructions: / History: COMPARISON: None. FINDINGS: Single view of chest obtained. Presumed balloon pump tip is identified at the proximal aspect of the descending thoracic aorta near junction with aortic arch. No focal airspace consolidation or pulmonary edema. IMPRESSION: * Balloon pump without focal airspace consolidation. Electronically signed by: Ryan Graff MD (05/06/2020 2:39 PM) [id number]
[2020-05-06] MEDS: AMIODARONE 450 MG in IV DEXTROSE 5% 250 ML IV PRN (16:19)
--- NOTE | 2020-05-06 16:52 | NUR ---
1600 Able to doze intermittently w assist of medications/back pain relief. family at bedside ,good support for patient. Verbal communication w son Ever and daughter. Denies c/ o CP or symptoms that brought him to hospital
--- NOTE | 2020-05-06 18:29 | NUR ---
Copy Echo report,pre/post EKGs,hospital folder home (with patients permission),as well as printed teaching information( meds.W[place],arrhythmia info,heart cath etc) after verbal teaching covered with patient this afternoon prior to family taking home. Questions encouraged. IABP to reman n place till am/poss Sunday w PTCA/stent of circ to be done this coming Sunday
[2020-05-06] MEDS: ATORVASTATIN CALCIUM 20 MG TABLET PO SCH (21:10)
[2020-05-07] VITALS (30 sets, daily range): BP systolic 82–127; BP diastolic 43–81
[2020-05-07 00:08] LABS: HEMOGLOBIN A1C 5.5 % (4.8-5.6)
[2020-05-07] MEDS: ALPRAZolam 0.25 MG TABLET PO PRN ×2 (00:11→07:55)
[2020-05-07] MEDS: HYDROcodone/APAP 5/325MG 1 TAB TABLET PO PRN ×2 (00:12→05:27)
[2020-05-07] MEDS: IV NORMAL SALINE 1000ML BAG 1,000 ML IV SCH ×2 (01:04→14:00)
[2020-05-07 01:10] LABS: BILIRUBIN,URINE NEGATIVE (NEG); CLARITY,URINE CLEAR; COLOR,URINE YELLOW; NITRITE,URINE NEGATIVE (NEG); PH,URINE 5.5 (<5.0-8.0); PROTEIN,URINE NEGATIVE (NEG-TRACE); UROBILINOGEN,URINE 0.2 mg/dL (0.2 mg/dL)
[2020-05-07 01:21] LABS: SQUAMOUS EPITHELIAL CELL,UR OCC /LPF
[2020-05-07 01:22] LABS: BACTERIA,URINE 0 /HPF (0-FEW); RBC,URINE 0 /HPF (0-2); WBC,URINE OCC /HPF (0-4)
[2020-05-07] MEDS: HEPARIN 25,000UTS/250ML PREMIX 250 ML IV PRN (05:26)
[2020-05-07] MEDS: ASPIRIN ENTERIC COATED 81 MG TABLET.DR. PO SCH (07:55)
[2020-05-07] MEDS: AMIODARONE 450 MG in IV DEXTROSE 5% 250 ML IV PRN (08:06)
[2020-05-07] MEDS ORDERED: ANTI-COAG MONITOR BY PHARMACY. MC PRN (09:00)
[2020-05-07] MEDS: SENNOSIDES/DOCUSATE 8.6/50MG TABLET. PO SCH ×2 (09:00→20:40)
[2020-05-07] MEDS: TICAGRELOR 90 MG TABLET. PO SCH ×2 (09:00→20:39)
[2020-05-07] MEDS: METOPROLOL TART IMMED RELEASE 25 MG TABLET. PO SCH ×2 (09:00→20:34)
--- NOTE | 2020-05-07 09:07 | PDOC ---
PROGRESS NOTES Chief Complaint Chief Complaint IMPRESSION Acute STEMI IE, ST elevated myocardial infarction secondary to a proximal occlusion of the LAD. Successful stenting of the LAD lesion restoring flow with 0% residual lesion. Greater than 90% mid right coronary lesion. TOBACCO ABUSE DISORDER Successful placement of an aortic balloon pump. Left ventricle systolic function is severely impaired. The Ejection Fraction is 20-25%. There is apical akinesis There is severe hypokinesis of the distal anterior and mid to distal septal busch. balloon pump tip is identified at the proximal aspect of the descending thoracic aorta near junction with aortic arch. No focal airspace consolidation or pulmonary edema. DIABETES A1C 36 MIN CC TIME History of Present Illness Reason for Visit: The patient is a 64-year-old male who developed chest pain earlier today after mowing his lawn. It was severe and he rated it 10 out of 10. It is associated by mild shortness of breath. When it did not resolve for 45 to 60 minutes he called paramedics. EKG by the paramedics suggested an anterior ST elevated myocardial infarction and a STEMI protocol was activated. The patient was met in the emergency room when he arrived. He continues to be in moderate distress. Repeat EKG confirmed ST elevation in the anterior leads suggestive of a LAD lesion. He was treated with aspirin and heparin. Risks and benefits of emergency cardiac catheterization EXPLAINED Past Medical History Cardiovascular: HTN CENTRAL NERVOUS SYSTEM: Other (Mnire's disease) Past Surgical History Past Surgical History: Total hip replacement DM, Current or recent (<one month) smoker, HTN, HLP, family history of CAD, obesity. History of Present Illness History of Present Illness 05/07/20 Patient seen and examined Chart reviewed Discussed with RN O2 nasal canula Left ventricle systolic function is severely impaired. The Ejection Fraction is 20-25%. There is apical akinesis There is severe hypokinesis of the distal anterior and mid to distal septal busch. Troponin I: 209.36 EF: 20-35% Amiodarone drip Vitals Vitals Vital Signs Date Time Temp Pulse Resp B/P (MAP) Pulse Ox O2 Delivery O2 Flow Rate FiO2 05/07/20 08:00 48 05/07/20 08:00 Nasal Cannula 2.0 05/07/20 08:00 97.8 13 98 97.8 Physical Exam General: Alert, Oriented X3, Cooperative, No acute distress, moderate distress Heart: Regular rate, Normal S1, Normal S2, No murmurs, Other (Mildly tachycardic) Lungs: Clear Abdomen: Normal bowel sounds Extremities: No cyanosis, Normal pulses Skin: No significant lesion Labs LABS Procedures Selective coronary angiogram 2 drug-eluting stents placed to a proximal LAD occlusion Intra-aortic balloon pump The patient is a 64-year-old male who developed chest pain at home. Paramedics were called and their EKG suggested an anterior ST elevated myocardial infarction. Aspirin and heparin were given. Patient was met upon arrival in the emergency room. Repeat EKG confirmed the diagnosis. Risks and benefits of emergency cardiac catheterization and possible revascularization were discussed with the patient. He agreed to proceed. After informed consent was obtained the patient was brought to the catheterization lab. The area the right femoral artery was prepared in the usual manner with Betadine, sterile draping and local anesthetic. An 18-gauge needle was used to enter the right femoral artery, a wire placed and a 6 Swazi sheath placed over the wire. Using a J-wire,a 6 Swazi Zachery right diagnostic catheter was passed to the ascending aorta and used to engage the right coronary artery. Sequential injections in various views were obtained. A 6 Swazi XB 3.5 guide was used to engage the left coronary system. Sequential injections in various views were obtained. Injection showed proximal occlusion of the LAD. We proceeded to revascularize the vessel. Angiomax was used as per protocol. A PT choice wire was used to cross the lesion. Initial dilatations were with a 3.0 x 20 Euphora balloon with 3 inflations at 8 jone for 20 seconds. Next a 3.0 x 26 Resolute Ramez drug-eluting stent was deployed with 1 inflation at 15 jone for 15 seconds. This covered the bulk of the lesion, however some proximal disease was still present and a second 3.0 x 15 Resolute Ramez stent was deployed in overlapping fashion in the proximal part of the vessel. It was deployed with 1 inflation at 17 jone for 15 seconds. 3 additional inflations covering the length of the stent were employed with the same balloon at 17 seconds for 10 seconds each. Following this flow was restored throughout the LAD including the distal vessel. The guiding system was removed. Secondary to the patient's decreased blood pressure and large anterior infarct an IABP was placed through the pre-existing right femoral sheath. It was placed without difficulty. The patient was treated with dopamine, amiodarone and the balloon pump as noted above. He was then moved to the intensive care unit in serious condition. Findings. Hemodynamics. Aortic root 94/60 Coronaries Left main. The left main was a normal size vessel without lesions. Left anterior descending. The LAD was a moderately large vessel with a proximal occlusion. Left circumflex. Left circumflex was a moderate size vessel with no significant lesions. Right coronary artery. The right coronary moderate was a moderate size vessel with a mid greater than 90% lesion. <Conclusion> ST elevated myocardial infarction secondary to a proximal occlusion of the LAD. Successful stenting of the LAD lesion restoring flow with 0% residual lesion. Greater than 90% mid right coronary lesion. Successful placement of an aortic balloon pump. Fluoroscopy time 13.5 minutes. Dose 57 Gycm squared Contrast to 150 mil Sedation time 90 minutes Signed by : Brittanie Balderas MD Electronically Approved : 05/06/2020 12:00:42 INDICATION: Reason: cardiomyopathy / Spl. Instructions: / History: COMPARISON: None. FINDINGS: Single view of chest obtained. Presumed balloon pump tip is identified at the proximal aspect of the descending thoracic aorta near junction with aortic arch. No focal airspace consolidation or pulmonary edema. IMPRESSION: * Balloon pump without focal airspace consolidation. Electronically signed by: Ryan Dalton MD (05/06/2020 2:39 PM) [id number] DICTATED and SIGNED BY: RYAN DALTON MD DATE: 05/06/20 1439 ATRIA The left atrium size is normal. The right atrium size is normal. The interatrial septum is intact with no evidence for an atrial septal defect or patent foramen ovale as noted on 2-D or Doppler imaging. AORTIC VALVE The aortic valve is calcified but opens well. Doppler and Color Flow revealed no significant aortic regurgitation. There is no significant aortic valvular stenosis. MITRAL VALVE The mitral valve is normal in structure and function. There is no evidence of mitral valve prolapse but the anterior mitral valve leaflet is redundant. There is no mitral valve stenosis. Doppler and Color Flow revealed no mitral valve regurgitation noted. TRICUSPID VALVE The tricuspid valve is normal in structure and function. Doppler and Color Flow revealed trace tricuspid regurgitation. There is mild pulmonary hypertension. The PA pressure was estimated at 33 mmHg. There is no tricuspid valve stenosis. PULMONIC VALVE The pulmonic valve is not well visualized. Doppler and Color Flow revealed no pulmonic valvular regurgitation. There is no pulmonic valvular stenosis. GREAT VESSELS The aortic root is normal in size. The ascending aorta is normal in size. The IVC is normal in size and collapses >50% with inspiration. PERICARDIAL EFFUSION There is no evidence of significant pericardial effusion. Critical Notification Critical Value: No <Conclusion> The Left Ventricle is mildly dilated. Left ventricle systolic function is severely impaired. The Ejection Fraction is 20-25%. There is apical akinesis There is severe hypokinesis of the distal anterior and mid to distal septal busch. Doppler and Color Flow revealed no significant aortic regurgitation. There is no significant aortic valvular stenosis. There is no evidence of mitral valve prolapse but the anterior mitral valve leaflet is redundant. Doppler and Color Flow revealed trace tricuspid regurgitation. There is mild pulmonary hypertension. The PA pressure was estimated at 33 mmHg. Signed by : Brittanie Balderas MD Electronically Approved : 05/06/2020 11:00:00 DICTATED and SIGNED BY: BRITTANIE BALDERAS MD DATE: 05/06/20 0937 Laboratory Tests Test 05/07/20 00:30 05/07/20 04:50 Urine Collection Type Unknown Urine Color Yellow Urine Clarity Clear Urine pH 5.5 (<5.0-8.0) Urine Specific [place] <=1.005 (1.000-1.030) Urine Protein Negative mg/dL (NEG-TRACE) Urine Glucose (UA) Negative mg/dL (NEG) Urine Ketones (Stick) Negative mg/dL (NEG) Urine Blood Negative (NEG) Urine Nitrite Negative (NEG) Urine Bilirubin Negative (NEG) Urine Urobilinogen Dipstick 0.2 mg/dL (0.2 mg/dL) Urine Leukocyte Esterase Negative (NEG) Urine RBC 0 /HPF (0-2) Urine WBC Occ /HPF (0-4) Urine Squamous Epithelial Cells Occ /LPF Urine Bacteria 0 /HPF (0-FEW) Heparin Anti-Xa Act, Unfractionated 0.49 IU/mL (0.30-0.70) Assessment and Plan Assessmemt and Plan Problems Medical Problems: (1) STEMI (ST elevation myocardial infarction) Status: Acute Comment Review of Relevant I have reviewed the following items francisca (where applicable) has been applied. Labs Laboratory Tests Test 05/05/20 18:45 05/05/20 18:47 05/06/20 01:30 05/06/20 07:40 White Blood Count 17.6 x10^3/uL (4.0-11.0) 21.1 x10^3/uL (4.0-11.0) Red Blood Count 5.04 x10^6/uL (4.30-5.70) 5.17 x10^6/uL (4.30-5.70) Hemoglobin 16.1 g/dL (13.0-17.5) 16.4 g/dL (13.0-17.5) Hematocrit 46.0 % (39.0-53.0) 47.7 % (39.0-53.0) Mean Corpuscular Volume 91 fL (79-100) 92 fL (79-100) Mean Corpuscular Hemoglobin 32 pg (25-35) 32 pg (25-35) Mean Corpuscular Hemoglobin Concent 35 g/dL (31-37) 34 g/dL (31-37) Red Cell Distribution Width 12.9 % (11.5-14.5) 13.1 % (11.5-14.5) Platelet Count 242 x10^3/uL (140-400) 261 x10^3/uL (140-400) Neutrophils (%) (Auto) 90 % (31-73) 90 % (31-73) Lymphocytes (%) (Auto) 4 % (24-48) 5 % (24-48) Monocytes (%) (Auto) 6 % (0-9) 6 % (0-9) Eosinophils (%) (Auto) 0 % (0-3) 0 % (0-3) Basophils (%) (Auto) 0 % (0-3) 0 % (0-3) Neutrophils # (Auto) 15.9 x10^3/uL (1.8-7.7) 18.9 x10^3/uL (1.8-7.7) Lymphocytes # (Auto) 0.6 x10^3/uL (1.0-4.8) 1.0 x10^3/uL (1.0-4.8) Monocytes # (Auto) 1.0 x10^3/uL (0.0-1.1) 1.2 x10^3/uL (0.0-1.1) Eosinophils # (Auto) 0.0 x10^3/uL (0.0-0.7) 0.0 x10^3/uL (0.0-0.7) Basophils # (Auto) 0.0 x10^3/uL (0.0-0.2) 0.0 x10^3/uL (0.0-0.2) Segmented Neutrophils % 90 % (35-66) Band Neutrophils % 2 % (0-9) Lymphocytes % 4 % (24-48) Monocytes % 4 % (0-10) Platelet Estimate Adequate (ADEQUATE) Prothrombin Time 14.5 SEC (11.7-14.0) Prothromb Time International Ratio 1.2 (0.8-1.1) Activated Partial Thromboplast Time 52 SEC (24-38) Sodium Level 139 mmol/L (136-145) 138 mmol/L (136-145) Potassium Level 3.9 mmol/L (3.5-5.1) 4.0 mmol/L (3.5-5.1) Chloride Level 104 mmol/L (98-107) 103 mmol/L (98-107) Carbon Dioxide Level 22 mmol/L (21-32) 24 mmol/L (21-32) Anion Gap 13 (6-14) 11 (6-14) Blood Urea Nitrogen 12 mg/dL (8-26) 12 mg/dL (8-26) Creatinine 1.4 mg/dL (0.7-1.3) 1.5 mg/dL (0.7-1.3) Estimated GFR (Cockcroft-Gault) 50.9 47.0 BUN/Creatinine Ratio 9 (6-20) Glucose Level 145 mg/dL (70-99) 158 mg/dL (70-99) Calcium Level 8.7 mg/dL (8.5-10.1) 8.6 mg/dL (8.5-10.1) Magnesium Level 2.0 mg/dL (1.8-2.4) Total Bilirubin 1.1 mg/dL (0.2-1.0) 0.8 mg/dL (0.2-1.0) Aspartate Amino Transf (AST/SGOT) 659 U/L (15-37) 560 U/L (15-37) Alanine Aminotransferase (ALT/SGPT) 126 U/L (16-63) 132 U/L (16-63) Alkaline Phosphatase 71 U/L (46-116) 63 U/L (46-116) Troponin I Quantitative 321.556 ng/mL (0.000-0.055) 209.360 ng/mL (0.000-0.055) 169.399 ng/mL (0.000-0.055) EE-Oiv-M-Type Natriuretic Peptide 345 pg/mL (0-124) Total Protein 7.3 g/dL (6.4-8.2) 6.7 g/dL (6.4-8.2) Albumin 4.1 g/dL (3.4-5.0) 3.6 g/dL (3.4-5.0) Albumin/Globulin Ratio 1.3 (1.0-1.7) Lipase 76 U/L (73-393) Heparin Anti-Xa Act, Unfractionated 0.18 IU/mL (0.30-0.70) 0.51 IU/mL (0.30-0.70) 0.47 IU/mL (0.30-0.70) Hemoglobin A1c 5.5 % (4.8-5.6) Direct Bilirubin 0.2 mg/dL (0.0-0.2) Triglycerides Level 200 mg/dL (0-150) Cholesterol Level 204 mg/dL (0-200) LDL Cholesterol, Calculated 120 mg/dL (0-100) VLDL Cholesterol, Calculated 40 mg/dL (0-40) Non-HDL Cholesterol Calculated 160 mg/dL (0-129) HDL Cholesterol 44 mg/dL (40-60) Cholesterol/HDL Ratio 4.6 Thyroid Stimulating Hormone (TSH) 0.364 uIU/mL (0.358-3.74) Test 05/07/20 00:30 05/07/20 04:50 Urine Collection Type Unknown Urine Color Yellow Urine Clarity Clear Urine pH 5.5 (<5.0-8.0) Urine Specific [place] <=1.005 (1.000-1.030) Urine Protein Negative mg/dL (NEG-TRACE) Urine Glucose (UA) Negative mg/dL (NEG) Urine Ketones (Stick) Negative mg/dL (NEG) Urine Blood Negative (NEG) Urine Nitrite Negative (NEG) Urine Bilirubin Negative (NEG) Urine Urobilinogen Dipstick 0.2 mg/dL (0.2 mg/dL) Urine Leukocyte Esterase Negative (NEG) Urine RBC 0 /HPF (0-2) Urine WBC Occ /HPF (0-4) Urine Squamous Epithelial Cells Occ /LPF Urine Bacteria 0 /HPF (0-FEW) Heparin Anti-Xa Act, Unfractionated 0.49 IU/mL (0.30-0.70) Laboratory Tests Test 05/07/20 00:30 05/07/20 04:50 Urine Collection Type Unknown Urine Color Yellow Urine Clarity Clear Urine pH 5.5 (<5.0-8.0) Urine Specific [place] <=1.005 (1.000-1.030) Urine Protein Negative mg/dL (NEG-TRACE) Urine Glucose (UA) Negative mg/dL (NEG) Urine Ketones (Stick) Negative mg/dL (NEG) Urine Blood Negative (NEG) Urine Nitrite Negative (NEG) Urine Bilirubin Negative (NEG) Urine Urobilinogen Dipstick 0.2 mg/dL (0.2 mg/dL) Urine Leukocyte Esterase Negative (NEG) Urine RBC 0 /HPF (0-2) Urine WBC Occ /HPF (0-4) Urine Squamous Epithelial Cells Occ /LPF Urine Bacteria 0 /HPF (0-FEW) Heparin Anti-Xa Act, Unfractionated 0.49 IU/mL (0.30-0.70) Medications Current Medications Ondansetron HCl (Zofran) 4 mg PRN Q8HRS PRN IV NAUSEA/VOMITING; Start 05/05/20 at 13:45; Stop 05/06/20 at 09:05; Status DC Iodixanol (Visipaque 320) 100 ml STK-MED ONCE .ROUTE ; Start 05/05/20 at 13:49; Stop 05/05/20 at 13:49; Status DC Fentanyl Citrate (Fentanyl 2ml Vial) 100 mcg STK-MED ONCE .ROUTE ; Start 05/05/20 at 13:49; Stop 05/05/20 at 13:49; Status DC Midazolam HCl (Versed) 2 mg STK-MED ONCE .ROUTE ; Start 05/05/20 at 13:50; Stop 05/05/20 at 13:50; Status DC Heparin Sodium (Porcine) (Heparin Sodium) 10,000 unit STK-MED ONCE .ROUTE ; Start 05/05/20 at 13:50; Stop 05/05/20 at 13:50; Status DC Bivalirudin (Angiomax) 250 mg STK-MED ONCE IV ; Start 05/05/20 at 13:59; Stop 05/05/20 at 13:59; Status DC Dopamine HCl/ Dextrose 250 ml @ As Directed STK-MED ONCE IV ; Start 05/05/20 at 14:02; Stop 05/05/20 at 14:02; Status DC Amiodarone HCl (Cordarone) 150 mg STK-MED ONCE .ROUTE ; Start 05/05/20 at 14:08; Stop 05/05/20 at 14:09; Status DC Ondansetron HCl (Zofran) 4 mg STK-MED ONCE .ROUTE ; Start 05/05/20 at 14:15; Stop 05/05/20 at 14:15; Status DC Heparin Sodium/ Sodium Chloride 500 ml @ As Directed STK-MED ONCE .ROUTE ; Start 05/05/20 at 14:16; Stop 05/05/20 at 14:17; Status DC Iodixanol (Visipaque 320) 100 ml STK-MED ONCE .ROUTE ; Start 05/05/20 at 14:20; Stop 05/05/20 at 14:20; Status DC Lidocaine HCl (Lidocaine 1% 20ml Vial) 20 ml STK-MED ONCE .ROUTE ; Start 05/05/20 at 14:21; Stop 05/05/20 at 14:21; Status DC Heparin Sodium/ Sodium Chloride (HEPARIN for ARTERIAL LINE FLUSH) 1,000 unit 1X ONCE IART Last administered on 05/05/20at 14:57; Start 05/05/20 at 14:30; Stop 05/05/20 at 14:49; Status DC Heparin Sodium/ Sodium Chloride (HEPARIN for ARTERIAL LINE FLUSH) 1,000 unit 1X ONCE IART Last administered on 05/05/20at 14:57; Start 05/05/20 at 14:30; Stop 05/05/20 at 14:49; Status DC Midazolam HCl (Versed) 1 mg 1X ONCE IV Last administered on 05/05/20at 15:00; Start 05/05/20 at 14:30; Stop 05/05/20 at 14:49; Status DC Fentanyl Citrate (Fentanyl 2ml Vial) 12.5 mcg 1X ONCE IV Last administered on 05/05/20at 15:00; Start 05/05/20 at 14:30; Stop 7/22/20 at 14:49; Status DC Iodixanol (Visipaque 320) 100 ml 1X ONCE IART Last administered on 05/05/20at 14:57; Start 05/05/20 at 14:30; Stop 05/05/20 at 14:49; Status DC Bivalirudin (Angiomax) 250 mg 1X ONCE IV Last administered on 05/05/20at 14:58; Start 05/05/20 at 14:30; Stop 05/05/20 at 14:49; Status DC Clopidogrel Bisulfate (Plavix) 600 mg 1X ONCE PO ; Start 05/05/20 at 14:30; Stop 05/05/20 at 15:05; Status DC Lidocaine HCl (Lidocaine 1% 20ml Vial) 18 ml 1X ONCE INJ Last administered on 05/05/20at 14:58; Start 05/05/20 at 14:30; Stop 05/05/20 at 14:49; Status DC Amiodarone HCl (Cordarone) 150 mg 1X ONCE IVP Last administered on 05/05/20at 14:59; Start 05/05/20 at 14:30; Stop 05/05/20 at 14:36; Status DC Amiodarone HCl 450 mg/Dextrose 259 ml @ 0 mls/hr CONT PRN IV SEE I/O RECORD Last administered on 05/05/20at 22:45; Start 05/05/20 at 14:30; Stop 05/05/20 at 22:46; Status DC Ondansetron HCl (Zofran) 4 mg 1X ONCE IVP Last administered on 05/05/20at 14:59; Start 05/05/20 at 14:30; Stop 05/05/20 at 14:37; Status DC Heparin Sodium/ Dextrose 250 ml @ 10 mls/hr CONT PRN IV PER PROTOCOL Last administered on 05/07/20at 05:26; Start 05/05/20 at 14:30 Heparin Sodium (Porcine) (Heparin Sodium) 2,250 unit PRN Q6HRS PRN IV FOR UFH LEVEL LESS THAN 0.2 Last administered on 05/05/20at 19:42; Start 05/05/20 at 14:30 Heparin Sodium/ Sodium Chloride (HEPARIN for ARTERIAL LINE FLUSH) 1,000 unit 1X ONCE IART Last administered on 05/05/20at 14:57; Start 05/05/20 at 14:30; Stop 05/05/20 at 14:49; Status DC Dopamine HCl/ Dextrose 250 ml @ 17.006 mls/ hr 1X ONCE IV Last administered on 05/05/20at 14:06; Start 05/05/20 at 14:45; Stop 05/06/20 at 05:27; Status DC Heparin Sodium (Porcine) (Heparin Sodium) 4,000 unit 1X ONCE IV Last administered on 05/05/20at 13:37; Start 05/05/20 at 13:31; Stop 05/05/20 at 14:57; Status DC Morphine Sulfate (Morphine Sulfate) 4 mg 1X ONCE IV Last administered on 05/05/20at 13:38; Start 05/05/20 at 13:32; Stop 05/05/20 at 14:57; Status DC Ticagrelor (Brilinta) 90 mg STK-MED ONCE .ROUTE ; Start 05/05/20 at 14:46; Stop 05/05/20 at 14:47; Status DC Info (CONTRAST GIVEN -- Rx MONITORING) 1 each PRN DAILY PRN MC SEE COMMENTS; Start 05/05/20 at 15:00; Stop 05/07/20 at 14:59 Ticagrelor (Brilinta) 180 mg 1X ONCE PO Last administered on 05/05/20at 15:11; Start 05/05/20 at 15:15; Stop 05/05/20 at 15:16; Status DC Ticagrelor (Brilinta) 180 mg 1X ONCE PO Last administered on 05/05/20at 17:45; Start 05/05/20 at 15:15; Stop 05/05/20 at 15:16; Status DC Heparin Sodium/ Dextrose 250 ml @ As Directed STK-MED ONCE IV ; Start 05/05/20 at 15:08; Stop 05/05/20 at 15:08; Status DC Sodium Chloride (Normal Saline Flush) 3 ml QSHIFT PRN IV AFTER MEDS AND BLOOD DRAWS; Start 05/05/20 at 15:15; Status Cancel Sodium Chloride 1,000 ml @ 50 mls/hr Q20H IV Last administered on 05/06/20at 10:36; Start 05/05/20 at 15:09; Stop 05/06/20 at 10:41; Status DC Aspirin (Ecotrin) 81 mg DAILYWBKFT PO Last administered on 05/07/20at 07:55; Start 05/06/20 at 08:00 Metoprolol Tartrate (Lopressor) 12.5 mg BID PO Last administered on 05/05/20at 20:51; Start 05/05/20 at 21:00; Stop 05/06/20 at 10:56; Status DC Lisinopril (Prinivil) 5 mg DAILY PO ; Start 05/06/20 at 09:00; Stop 05/06/20 at 08:59; Status DC Atorvastatin Calcium (Lipitor) 40 mg QHS PO Last administered on 05/06/20at 21:10; Start 05/05/20 at 21:00 Nitroglycerin (Nitrostat) 0.4 mg PRN Q5MIN PRN SL CHEST PAIN; Start 05/05/20 at 15:15 Atropine Sulfate (ATROPINE 0.5mg SYRINGE) 0.5 mg PRN 1X PRN IV BRADYCARDIA; Start 05/05/20 at 15:15 Oxycodone/ Acetaminophen (Percocet 5/325) 2 tab PRN Q4HRS PRN PO MODERATE PAIN, SEVERE PAIN; Start 05/05/20 at 15:15 Acetaminophen (Tylenol) 650 mg PRN Q6HRS PRN PO Headaches, Temp > 101.5'; Start 05/05/20 at 17:00 Lorazepam (Ativan Inj) 0.5 mg PRN Q6HRS PRN IVP ANXIETY / AGITATION; Start 05/05/20 at 17:00 Ondansetron HCl (Zofran) 4 mg PRN Q6HRS PRN IVP NAUSEA/VOMITING Last administered on 05/05/20at 21:12; Start 05/05/20 at 17:00 Sodium Chloride (Normal Saline Flush) 3 ml QSHIFT PRN IV AFTER MEDS AND BLOOD DRAWS; Start 05/05/20 at 17:00 Acetaminophen/ Hydrocodone Bitart (Lortab 5/325) 1 tab PRN Q4HRS PRN PO MILD PA IN 1-3 Last administered on 05/07/20at 05:27; Start 05/05/20 at 17:00 Morphine Sulfate (Morphine Sulfate) 1 mg PRN Q1HR PRN IV PAIN Last administered on 05/06/20at 04:01; Start 05/05/20 at 17:00 Senna/Docusate Sodium (Senna Plus) 1 tab BID PO Last administered on 05/06/20at 21:10; Start 05/05/20 at 21:00 Lactulose (Lactulose) 20 gm PRN Q12HR PRN PO CONSTIPATION; Start 05/05/20 at 1 7:00 Dopamine HCl/ Dextrose 250 ml @ 16.988 mls/ hr CONT PRN IV SEE I/O RECORD Last administered on 05/07/20at 00:20; Start 05/05/20 at 20:00 Alprazolam (Xanax) 0.25 mg PRN Q6HRS PRN PO ANXIETY / AGITATION Last administered on 05/07/20at 07:55; Start 05/05/20 at 20:45 Cyclobenzaprine HCl (Flexeril) 10 mg PRN DAILY PRN PO MUSCLE SPASMS Last administered on 05/06/20at 08:23; Start 05/05/20 at 20:45 Ticagrelor (Brilinta) 90 mg BID PO Last administered on 05/06/20at 21:10; Start 05/06/20 at 09:00 Lisinopril (Prinivil) 5 mg DAILY@1300 PO ; Start 05/06/20 at 13:00; Stop 05/06/20 at 10:56; Status DC Lisinopril (Prinivil) 5 mg DAILY@1300 PO ; Start 05/08/20 at 13:00 Metoprolol Tartrate (Lopressor) 12.5 mg BID PO ; Start 05/06/20 at 11:00 Amiodarone HCl 450 mg/Dextrose 259 ml @ 0 mls/hr CONT PRN IV SEE I/O RECORD Last administered on 05/07/20at 08:06; Start 05/06/20 at 15:45 Sodium Chloride 1,000 ml @ 100 mls/hr Q10H IV Last administered on 05/07/20at 01:04; Start 05/06/20 at 19:00 Info (Anti-Coagulation Monitoring By Pharmacy) 1 each PRN DAILY PRN MC SEE COMMENTS; Start 05/07/20 at 09:00 Clopidogrel Bisulfate (Plavix) 600 mg STK-MED ONCE .ROUTE ; Start 05/05/20 at 15:00; Stop 05/07/20 at 09:06; Status DC Active Scripts Active Reported D3 + K2 Dots 1,000 Units Tab (Vitamin D3/Vitamin K2) 1 Each Tab.rapdis 1 Tab PO HS 30 Days Multi Vitamin Daily (Multivitamin) 1 Each Tablet 1 Tab PO HS 30 Days Pepcid (Famotidine) 20 Mg Tablet 20 Mg PO BID Zoloft (Sertraline Hcl) 50 Mg Tablet 1 Tab PO HS Rapaflo (Silodosin) 8 Mg Capsule 1 Cap PO HS Simvastatin 40 Mg Tablet 1 Tab PO QHS Vitals/I & O Vital Sign - Last 24 Hours 05/06/20 05/06/20 05/06/20 05/06/20 09:24 10:00 10:00 11:00 Pulse 56 56 B/P (MAP) 112/64 (80) 85/56 (66) 101/47 Pulse Ox 5 99 O2 Delivery Nasal Cannula Nasal Cannula O2 Flow Rate 2.0 2.0 05/06/20 05/06/20 05/06/20 05/06/20 11:00 11:00 12:00 12:00 Pulse 62 60 58 58 Resp 14 B/P (MAP) 112/54 (73) 111/56 (74) 104/66 (79) Pulse Ox 100 100 O2 Delivery Nasal Cannula Nasal Cannula O2 Flow Rate 2.0 05/06/20 05/06/20 05/06/20 05/06/20 12:07 13:00 13:00 14:00 Temp 98.3 98.3 Pulse 56 59 58 Resp 12 18 B/P (MAP) 101/47 (65) 107/52 (70) 104/45 (64) Pulse Ox 98 95 O2 Delivery Room Air Room Air Room Air O2 Flow Rate 05/06/20 05/06/20 05/06/20 05/06/20 14:00 14:45 15:00 15:09 Pulse 54 55 55 Resp 14 14 B/P (MAP) 101/45 (63) 102/49 (66) 108/44 (65) Pulse Ox 98 97 O2 Delivery Room Air 05/06/20 05/06/20 05/06/20 05/06/20 15:45 16:00 16:00 16:00 Pulse 60 56 Resp 12 16 B/P (MAP) 103/45 (64) 109/50 (69) Pulse Ox 98 98 O2 Delivery Nasal Cannula Nasal Cannula Room Air 05/06/20 05/06/20 05/06/20 05/06/20 17:00 17:00 18:00 18:00 Temp 98.2 98.2 Pulse 58 59 58 61 Resp 18 16 B/P (MAP) 102/51 (68) 101/50 (67) 107/56 (73) 109/51 (70) Pulse Ox 98 98 O2 Delivery Room Air Room Air 05/06/20 05/06/20 05/06/20 05/06/20 19:00 19:00 20:00 20:00 Pulse 55 57 63 59 Resp 12 18 B/P (MAP) 103/48 (66) 99/49 (66) Pulse Ox 99 99 O2 Delivery Room Air Room Air 05/06/20 05/06/20 05/06/20 05/06/20 20:00 21:00 21:00 22:00 Temp 98.5 98.5 Pulse 61 61 61 Resp 16 B/P (MAP) 110/49 (69) Pulse Ox 97 O2 Delivery Room Air Room Air 05/06/20 05/06/20 05/06/20 05/07/20 22:00 23:00 23:00 00:00 Pulse 61 65 65 Resp 13 15 B/P (MAP) 108/44 (65) 107/43 (64) Pulse Ox 97 98 O2 Delivery Room Air Room Air Room Air 05/07/20 05/07/20 05/07/20 05/07/20 00:00 00:00 00:12 01:00 Temp 98.6 98.6 Pulse 59 59 60 Resp 12 15 B/P (MAP) 106/47 (66) Pulse Ox 98 99 O2 Delivery Room Air Room Air 05/07/20 05/07/20 05/07/20 05/07/20 01:00 01:20 02:00 02:00 Pulse 60 63 63 Resp 19 12 12 B/P (MAP) 101/53 (69) 116/56 (76) Pulse Ox 97 97 96 O2 Delivery Room Air Room Air Room Air 05/07/20 05/07/20 05/07/20 05/07/20 03:00 03:00 03:15 04:00 Pulse 56 56 Resp 16 B/P (MAP) 127/53 (77) 104/45 (64) Pulse Ox 99 O2 Delivery Room Air Room Air 05/07/20 05/07/20 05/07/20 05/07/20 04:00 04:00 05:00 05:00 Temp 97.3 97.3 Pulse 58 58 60 56 Resp 10 10 B/P (MAP) 100/43 (62) 105/46 (65) Pulse Ox 98 98 O2 Delivery Room Air Room Air 05/07/20 05/07/20 05/07/20 05/07/20 05:27 06:00 06:00 06:36 Pulse 59 59 Resp 24 11 18 B/P (MAP) 111/47 (68) Pulse Ox 98 96 97 O2 Delivery Room Air Room Air Room Air 05/07/20 05/07/20 05/07/20 05/07/20 07:00 07:00 08:00 08:00 Temp 97.8 97.8 Pulse 59 50 52 Resp 15 13 B/P (MAP) 106/44 (64) 107/49 (68) Pulse Ox 99 98 O2 Delivery Room Air Room Air Nasal Cannula O2 Flow Rate 2.0 05/07/20 08:00 Pulse 48 B/P (MAP) Intake and Output 05/06/20 05/06/20 05/07/20 15:00 23:00 07:00 Intake Total 445 ml 1151 ml 2601 ml Output Total 1095 ml 1737 ml 1900 ml Balance -650 ml -586 ml 701 ml Justicifation of Admission Dx: Justifications for Admission: Justification of Admission Dx: Yes NV: Acute STEMI TERRA SMITH MD May 07, 2020 09:07
[2020-05-07 09:11] LABS: BASO # 0.1 x10^3/uL (0.0-0.2); BASO % 0 % (0-3); CALCIUM 8.4 mg/dL (8.5-10.1); CREATININE 1.3 mg/dL (0.7-1.3); EOS # 0.1 x10^3/uL (0.0-0.7); EOS % 1 % (0-3); GFR 55.4; HEMATOCRIT 39.7 % (39.0-53.0); HEMOGLOBIN 13.8 g/dL (13.0-17.5); LYMPH # 1.9 x10^3/uL (1.0-4.8); LYMPH % 14 % (24-48); MAGNESIUM 1.9 mg/dL (1.8-2.4); MEAN CORPUSCULAR HEMOGLOBIN 32 pg (25-35); MEAN CORPUSCULAR HGB CONC 35 g/dL (31-37); MEAN CORPUSCULAR VOLUME 93 fL (79-100); MONO # 1.1 x10^3/uL (0.0-1.1); MONO % 8 % (0-9); NEUT # 10.4 x10^3/uL (1.8-7.7); NEUT % 77 % (31-73); PLATELET COUNT 175 x10^3/uL (140-400); POTASSIUM 4.1 mmol/L (3.5-5.1); RED BLOOD COUNT 4.25 x10^6/uL (4.30-5.70); RED CELL DISTRIBUTION WIDTH 13.3 % (11.5-14.5); WHITE BLOOD COUNT 13.5 x10^3/uL (4.0-11.0)
--- NOTE | 2020-05-07 09:47 | NUR ---
Card for stent formation to patient.Placed in wallet at this time. Heparin off. Med order changes after discussion w CHADD Jamison RN. Heparin off/IABP frequency decreased 1:2. Reports "feeling better today". Able to doze at [facility]ervals with reported back pain relief at this time.
[2020-05-07] MEDS ORDERED: MAGNESIUM SULFATE 2GM 50 ML IV ONE (10:00)
[2020-05-07 11:02] LABS: ALBUMIN 3.2 g/dL (3.4-5.0); DIRECT BILIRUBIN 0.2 mg/dL (0.0-0.2); TOTAL BILIRUBIN 0.9 mg/dL (0.2-1.0); TOTAL PROTEIN 6.2 g/dL (6.4-8.2)
--- NOTE | 2020-05-07 12:11 | NUR ---
gradual titration IABP from 1:1 t 1:3 this am in prep for removal at [address] Graves. Dopamine titrated. amiodarone/heparin dcd . Family at bedside. Son verbally reinforcing events;SC process.RX and healing,lab changes and EKG changes aiding in Dx. CD of procedure obtained for patent per his request Addendum: 05/07/20 at 1219 by Michelle Ward RN Amended: Links added.
[2020-05-07] MEDS ORDERED: LIDOCAINE 1% PF 2 ML VIAL. ONE ×2 (13:00→13:02)
[2020-05-07] MEDS ORDERED: LIDOCAINE 1% PF 30 ML VIAL. ONE ×2 (13:00→13:03)
--- NOTE | 2020-05-07 15:27 | NUR ---
SS following up with discharge planning. SS reviewed pt chart and discussed with pt RN. Pt currently on room air. Per RN, pt off amiodarone and heparin drip. Pt had balloon pump out today. Pt scheduled for heart cath on 05/10/2020. SS will continue to follow for discharge planning.
[2020-05-07] MEDS: MORPHINE SULFATE 2 MG/ML VIAL. IV PRN (15:32)
--- NOTE | 2020-05-07 16:34 | PDOC ---
PROGRESS NOTES Subjective Subjective Patient seen and examined Objective Objective Vital Signs Date Time Temp Pulse Resp B/P (MAP) Pulse Ox O2 Delivery O2 Flow Rate FiO2 05/07/20 16:00 60 12 106/67 (80) Room Air 05/07/20 15:32 98 2.0 05/07/20 12:00 98.0 98.0 Intake and Output 05/07/20 07:00 Intake Total 4197 ml Output Total 4732 ml Balance -535 ml Intake Oral 1535 ml IV Total 2662 ml Output Urine Total 4732 ml Physical Exam Abdomen: Normal bowel sounds Heart: Regular rate General: No acute distress Lungs: Other (Slightly decreased breath sounds) Assessment Assessment Problems Medical Problems: (1) STEMI (ST elevation myocardial infarction) Status: Acute Anterior STEMI: Proximal LAD occlusion opened with stent placement. Ejection fraction of 25%. Patient has improved overnight. Rhythm has stabilized. Blood pressure is also improved. Balloon pump removed this afternoon. Continue on present medications with close monitoring. HLP: Statin medication Cardiogenic shock. Improving. Intra-aortic balloon pump removed. Residual > 90% lesion in the right coronary artery. Stent placement tentatively planned for Sunday. Comment Review of Relevant I have reviewed the following items francisca (where applicable) has been applied. Labs Laboratory Tests Test 05/05/20 18:45 05/05/20 18:47 05/06/20 01:30 05/06/20 07:40 White Blood Count 17.6 x10^3/uL (4.0-11.0) 21.1 x10^3/uL (4.0-11.0) Red Blood Count 5.04 x10^6/uL (4.30-5.70) 5.17 x10^6/uL (4.30-5.70) Hemoglobin 16.1 g/dL (13.0-17.5) 16.4 g/dL (13.0-17.5) Hematocrit 46.0 % (39.0-53.0) 47.7 % (39.0-53.0) Mean Corpuscular Volume 91 fL (79-100) 92 fL (79-100) Mean Corpuscular Hemoglobin 32 pg (25-35) 32 pg (25-35) Mean Corpuscular Hemoglobin Concent 35 g/dL (31-37) 34 g/dL (31-37) Red Cell Distribution Width 12.9 % (11.5-14.5) 13.1 % (11.5-14.5) Platelet Count 242 x10^3/uL (140-400) 261 x10^3/uL (140-400) Neutrophils (%) (Auto) 90 % (31-73) 90 % (31-73) Lymphocytes (%) (Auto) 4 % (24-48) 5 % (24-48) Monocytes (%) (Auto) 6 % (0-9) 6 % (0-9) Eosinophils (%) (Auto) 0 % (0-3) 0 % (0-3) Basophils (%) (Auto) 0 % (0-3) 0 % (0-3) Neutrophils # (Auto) 15.9 x10^3/uL (1.8-7.7) 18.9 x10^3/uL (1.8-7.7) Lymphocytes # (Auto) 0.6 x10^3/uL (1.0-4.8) 1.0 x10^3/uL (1.0-4.8) Monocytes # (Auto) 1.0 x10^3/uL (0.0-1.1) 1.2 x10^3/uL (0.0-1.1) Eosinophils # (Auto) 0.0 x10^3/uL (0.0-0.7) 0.0 x10^3/uL (0.0-0.7) Basophils # (Auto) 0.0 x10^3/uL (0.0-0.2) 0.0 x10^3/uL (0.0-0.2) Segmented Neutrophils % 90 % (35-66) Band Neutrophils % 2 % (0-9) Lymphocytes % 4 % (24-48) Monocytes % 4 % (0-10) Platelet Estimate Adequate (ADEQUATE) Prothrombin Time 14.5 SEC (11.7-14.0) Prothromb Time International Ratio 1.2 (0.8-1.1) Activated Partial Thromboplast Time 52 SEC (24-38) Sodium Level 139 mmol/L (136-145) 138 mmol/L (136-145) Potassium Level 3.9 mmol/L (3.5-5.1) 4.0 mmol/L (3.5-5.1) Chloride Level 104 mmol/L (98-107) 103 mmol/L (98-107) Carbon Dioxide Level 22 mmol/L (21-32) 24 mmol/L (21-32) Anion Gap 13 (6-14) 11 (6-14) Blood Urea Nitrogen 12 mg/dL (8-26) 12 mg/dL (8-26) Creatinine 1.4 mg/dL (0.7-1.3) 1.5 mg/dL (0.7-1.3) Estimated GFR (Cockcroft-Gault) 50.9 47.0 BUN/Creatinine Ratio 9 (6-20) Glucose Level 145 mg/dL (70-99) 158 mg/dL (70-99) Calcium Level 8.7 mg/dL (8.5-10.1) 8.6 mg/dL (8.5-10.1) Magnesium Level 2.0 mg/dL (1.8-2.4) Total Bilirubin 1.1 mg/dL (0.2-1.0) 0.8 mg/dL (0.2-1.0) Aspartate Amino Transf (AST/SGOT) 659 U/L (15-37) 560 U/L (15-37) Alanine Aminotransferase (ALT/SGPT) 126 U/L (16-63) 132 U/L (16-63) Alkaline Phosphatase 71 U/L (46-116) 63 U/L (46-116) Troponin I Quantitative 321.556 ng/mL (0.000-0.055) 209.360 ng/mL (0.000-0.055) 169.399 ng/mL (0.000-0.055) GF-Ybo-N-Type Natriuretic Peptide 345 pg/mL (0-124) Total Protein 7.3 g/dL (6.4-8.2) 6.7 g/dL (6.4-8.2) Albumin 4.1 g/dL (3.4-5.0) 3.6 g/dL (3.4-5.0) Albumin/Globulin Ratio 1.3 (1.0-1.7) Lipase 76 U/L (73-393) Heparin Anti-Xa Act, Unfractionated 0.18 IU/mL (0.30-0.70) 0.51 IU/mL (0.30-0.70) 0.47 IU/mL (0.30-0.70) Hemoglobin A1c 5.5 % (4.8-5.6) Direct Bilirubin 0.2 mg/dL (0.0-0.2) Triglycerides Level 200 mg/dL (0-150) Cholesterol Level 204 mg/dL (0-200) LDL Cholesterol, Calculated 120 mg/dL (0-100) VLDL Cholesterol, Calculated 40 mg/dL (0-40) Non-HDL Cholesterol Calculated 160 mg/dL (0-129) HDL Cholesterol 44 mg/dL (40-60) Cholesterol/HDL Ratio 4.6 Thyroid Stimulating Hormone (TSH) 0.364 uIU/mL (0.358-3.74) Test 05/07/20 00:30 05/07/20 04:50 Urine Collection Type Unknown Urine Color Yellow Urine Clarity Clear Urine pH 5.5 (<5.0-8.0) Urine Specific [place] <=1.005 (1.000-1.030) Urine Protein Negative mg/dL (NEG-TRACE) Urine Glucose (UA) Negative mg/dL (NEG) Urine Ketones (Stick) Negative mg/dL (NEG) Urine Blood Negative (NEG) Urine Nitrite Negative (NEG) Urine Bilirubin Negative (NEG) Urine Urobilinogen Dipstick 0.2 mg/dL (0.2 mg/dL) Urine Leukocyte Esterase Negative (NEG) Urine RBC 0 /HPF (0-2) Urine WBC Occ /HPF (0-4) Urine Squamous Epithelial Cells Occ /LPF Urine Bacteria 0 /HPF (0-FEW) White Blood Count 13.5 x10^3/uL (4.0-11.0) Red Blood Count 4.25 x10^6/uL (4.30-5.70) Hemoglobin 13.8 g/dL (13.0-17.5) Hematocrit 39.7 % (39.0-53.0) Mean Corpuscular Volume 93 fL (79-100) Mean Corpuscular Hemoglobin 32 pg (25-35) Mean Corpuscular Hemoglobin Concent 35 g/dL (31-37) Red Cell Distribution Width 13.3 % (11.5-14.5) Platelet Count 175 x10^3/uL (140-400) Neutrophils (%) (Auto) 77 % (31-73) Lymphocytes (%) (Auto) 14 % (24-48) Monocytes (%) (Auto) 8 % (0-9) Eosinophils (%) (Auto) 1 % (0-3) Basophils (%) (Auto) 0 % (0-3) Neutrophils # (Auto) 10.4 x10^3/uL (1.8-7.7) Lymphocytes # (Auto) 1.9 x10^3/uL (1.0-4.8) Monocytes # (Auto) 1.1 x10^3/uL (0.0-1.1) Eosinophils # (Auto) 0.1 x10^3/uL (0.0-0.7) Basophils # (Auto) 0.1 x10^3/uL (0.0-0.2) Heparin Anti-Xa Act, Unfractionated 0.49 IU/mL (0.30-0.70) Sodium Level 141 mmol/L (136-145) Potassium Level 4.1 mmol/L (3.5-5.1) Chloride Level 106 mmol/L (98-107) Carbon Dioxide Level 26 mmol/L (21-32) Anion Gap 9 (6-14) Blood Urea Nitrogen 10 mg/dL (8-26) Creatinine 1.3 mg/dL (0.7-1.3) Estimated GFR (Cockcroft-Gault) 55.4 Glucose Level 120 mg/dL (70-99) Calcium Level 8.4 mg/dL (8.5-10.1) Magnesium Level 1.9 mg/dL (1.8-2.4) Total Bilirubin 0.9 mg/dL (0.2-1.0) Direct Bilirubin 0.2 mg/dL (0.0-0.2) Aspartate Amino Transf (AST/SGOT) 314 U/L (15-37) Alanine Aminotransferase (ALT/SGPT) 104 U/L (16-63) Alkaline Phosphatase 61 U/L (46-116) Total Protein 6.2 g/dL (6.4-8.2) Albumin 3.2 g/dL (3.4-5.0) Laboratory Tests Test 05/07/20 00:30 05/07/20 04:50 Urine Collection Type Unknown Urine Color Yellow Urine Clarity Clear Urine pH 5.5 (<5.0-8.0) Urine Specific [place] <=1.005 (1.000-1.030) Urine Protein Negative mg/dL (NEG-TRACE) Urine Glucose (UA) Negative mg/dL (NEG) Urine Ketones (Stick) Negative mg/dL (NEG) Urine Blood Negative (NEG) Urine Nitrite Negative (NEG) Urine Bilirubin Negative (NEG) Urine Urobilinogen Dipstick 0.2 mg/dL (0.2 mg/dL) Urine Leukocyte Esterase Negative (NEG) Urine RBC 0 /HPF (0-2) Urine WBC Occ /HPF (0-4) Urine Squamous Epithelial Cells Occ /LPF Urine Bacteria 0 /HPF (0-FEW) White Blood Count 13.5 x10^3/uL (4.0-11.0) Red Blood Count 4.25 x10^6/uL (4.30-5.70) Hemoglobin 13.8 g/dL (13.0-17.5) Hematocrit 39.7 % (39.0-53.0) Mean Corpuscular Volume 93 fL (79-100) Mean Corpuscular Hemoglobin 32 pg (25-35) Mean Corpuscular Hemoglobin Concent 35 g/dL (31-37) Red Cell Distribution Width 13.3 % (11.5-14.5) Platelet Count 175 x10^3/uL (140-400) Neutrophils (%) (Auto) 77 % (31-73) Lymphocytes (%) (Auto) 14 % (24-48) Monocytes (%) (Auto) 8 % (0-9) Eosinophils (%) (Auto) 1 % (0-3) Basophils (%) (Auto) 0 % (0-3) Neutrophils # (Auto) 10.4 x10^3/uL (1.8-7.7) Lymphocytes # (Auto) 1.9 x10^3/uL (1.0-4.8) Monocytes # (Auto) 1.1 x10^3/uL (0.0-1.1) Eosinophils # (Auto) 0.1 x10^3/uL (0.0-0.7) Basophils # (Auto) 0.1 x10^3/uL (0.0-0.2) Heparin Anti-Xa Act, Unfractionated 0.49 IU/mL (0.30-0.70) Sodium Level 141 mmol/L (136-145) Potassium Level 4.1 mmol/L (3.5-5.1) Chloride Level 106 mmol/L (98-107) Carbon Dioxide Level 26 mmol/L (21-32) Anion Gap 9 (6-14) Blood Urea Nitrogen 10 mg/dL (8-26) Creatinine 1.3 mg/dL (0.7-1.3) Estimated GFR (Cockcroft-Gault) 55.4 Glucose Level 120 mg/dL (70-99) Calcium Level 8.4 mg/dL (8.5-10.1) Magnesium Level 1.9 mg/dL (1.8-2.4) Total Bilirubin 0.9 mg/dL (0.2-1.0) Direct Bilirubin 0.2 mg/dL (0.0-0.2) Aspartate Amino Transf (AST/SGOT) 314 U/L (15-37) Alanine Aminotransferase (ALT/SGPT) 104 U/L (16-63) Alkaline Phosphatase 61 U/L (46-116) Total Protein 6.2 g/dL (6.4-8.2) Albumin 3.2 g/dL (3.4-5.0) Medications Current Medications Ondansetron HCl (Zofran) 4 mg PRN Q8HRS PRN IV NAUSEA/VOMITING; Start 05/05/20 at 13:45; Stop 05/06/20 at 09:05; Status DC Iodixanol (Visipaque 320) 100 ml STK-MED ONCE .ROUTE ; Start 05/05/20 at 13:49; Stop 05/05/20 at 13:49; Status DC Fentanyl Citrate (Fentanyl 2ml Vial) 100 mcg STK-MED ONCE .ROUTE ; Start 05/05/20 at 13:49; Stop 05/05/20 at 13:49; Status DC Midazolam HCl (Versed) 2 mg STK-MED ONCE .ROUTE ; Start 05/05/20 at 13:50; Stop 05/05/20 at 13:50; Status DC Heparin Sodium (Porcine) (Heparin Sodium) 10,000 unit STK-MED ONCE .ROUTE ; Start 05/05/20 at 13:50; Stop 05/05/20 at 13:50; Status DC Bivalirudin (Angiomax) 250 mg STK-MED ONCE IV ; Start 05/05/20 at 13:59; Stop 05/05/20 at 13:59; Status DC Dopamine HCl/ Dextrose 250 ml @ As Directed STK-MED ONCE IV ; Start 05/05/20 at 14:02; Stop 05/05/20 at 14:02; Status DC Amiodarone HCl (Cordarone) 150 mg STK-MED ONCE .ROUTE ; Start 05/05/20 at 14:08; Stop 05/05/20 at 14:09; Status DC Ondansetron HCl (Zofran) 4 mg STK-MED ONCE .ROUTE ; Start 05/05/20 at 14:15; Stop 05/05/20 at 14:15; Status DC Heparin Sodium/ Sodium Chloride 500 ml @ As Directed STK-MED ONCE .ROUTE ; Start 05/05/20 at 14:16; Stop 05/05/20 at 14:17; Status DC Iodixanol (Visipaque 320) 100 ml STK-MED ONCE .ROUTE ; Start 05/05/20 at 14:20; Stop 05/05/20 at 14:20; Status DC Lidocaine HCl (Lidocaine 1% 20ml Vial) 20 ml STK-MED ONCE .ROUTE ; Start 05/05/20 at 14:21; Stop 05/05/20 at 14:21; Status DC Heparin Sodium/ Sodium Chloride (HEPARIN for ARTERIAL LINE FLUSH) 1,000 unit 1X ONCE IART Last administered on 05/05/20at 14:57; Start 05/05/20 at 14:30; Stop 05/05/20 at 14:49; Status DC Heparin Sodium/ Sodium Chloride (HEPARIN for ARTERIAL LINE FLUSH) 1,000 unit 1X ONCE IART Last administered on 05/05/20at 14:57; Start 05/05/20 at 14:30; Stop 05/05/20 at 14:49; Status DC Midazolam HCl (Versed) 1 mg 1X ONCE IV Last administered on 05/05/20at 15:00; Start 05/05/20 at 14:30; Stop 05/05/20 at 14:49; Status DC Fentanyl Citrate (Fentanyl 2ml Vial) 12.5 mcg 1X ONCE IV Last administered on 05/05/20at 15:00; Start 05/05/20 at 14:30; Stop 05/05/20 at 14:49; Status DC Iodixanol (Visipaque 320) 100 ml 1X ONCE IART Last administered on 05/05/20at 14:57; Start 05/05/20 at 14:30; Stop 05/05/20 at 14:49; Status DC Bivalirudin (Angiomax) 250 mg 1X ONCE IV Last administered on 05/05/20at 14:58; Start 05/05/20 at 14:30; Stop 05/05/20 at 14:49; Status DC Clopidogrel Bisulfate (Plavix) 600 mg 1X ONCE PO ; Start 05/05/20 at 14:30; Stop 05/05/20 at 15:05; Status DC Lidocaine HCl (Lidocaine 1% 20ml Vial) 18 ml 1X ONCE INJ Last administered on 05/05/20at 14:58; Start 05/05/20 at 14:30; Stop 05/05/20 at 14:49; Status DC Amiodarone HCl (Cordarone) 150 mg 1X ONCE IVP Last administered on 05/05/20at 14:59; Start 05/05/20 at 14:30; Stop 05/05/20 at 14:36; Status DC Amiodarone HCl 450 mg/Dextrose 259 ml @ 0 mls/hr CONT PRN IV SEE I/O RECORD Last administered on 05/05/20at 22:45; Start 05/05/20 at 14:30; Stop 05/05/20 at 22:46; Status DC Ondansetron HCl (Zofran) 4 mg 1X ONCE IVP Last administered on 05/05/20at 14:59; Start 05/05/20 at 14:30; Stop 05/05/20 at 14:37; Status DC Heparin Sodium/ Dextrose 250 ml @ 10 mls/hr CONT PRN IV PER PROTOCOL Last administered on 05/07/20at 05:26; Start 05/05/20 at 14:30; Stop 05/07/20 at 09:41; Status DC Heparin Sodium (Porcine) (Heparin Sodium) 2,250 unit PRN Q6HRS PRN IV FOR UFH LEVEL LESS THAN 0.2 Last administered on 05/05/20at 19:42; Start 05/05/20 at 14:30; Stop 05/07/20 at 09:41; Status DC Heparin Sodium/ Sodium Chloride (HEPARIN for ARTERIAL LINE FLUSH) 1,000 unit 1X ONCE IART Last administered on 05/05/20at 14:57; Start 05/05/20 at 14:30; Stop 05/05/20 at 14:49; Status DC Dopamine HCl/ Dextrose 250 ml @ 17.006 mls/ hr 1X ONCE IV Last administered on 05/05/20at 14:06; Start 05/05/20 at 14:45; Stop 05/06/20 at 05:27; Status DC Heparin Sodium (Porcine) (Heparin Sodium) 4,000 unit 1X ONCE IV Last administered on 05/05/20at 13:37; Start 05/05/20 at 13:31; Stop 05/05/20 at 14:57; Status DC Morphine Sulfate (Morphine Sulfate) 4 mg 1X ONCE IV Last administered on 05/05/20at 13:38; Start 05/05/20 at 13:32; Stop 05/05/20 at 14:57; Status DC Ticagrelor (Brilinta) 90 mg STK-MED ONCE .ROUTE ; Start 05/05/20 at 14:46; Stop 05/05/20 at 14:47; Status DC Info (CONTRAST GIVEN -- Rx MONITORING) 1 each PRN DAILY PRN MC SEE COMMENTS; Start 05/05/20 at 15:00; Stop 05/07/20 at 14:59; Status DC Ticagrelor (Brilinta) 180 mg 1X ONCE PO Last administered on 05/05/20at 15:11; Start 05/05/20 at 15:15; Stop 05/05/20 at 15:16; Status DC Ticagrelor (Brilinta) 180 mg 1X ONCE PO Last administered on 05/05/20at 17:45; Start 05/05/20 at 15:15; Stop 05/05/20 at 15:16; Status DC Heparin Sodium/ Dextrose 250 ml @ As Directed STK-MED ONCE IV ; Start 05/05/20 at 15:08; Stop 05/05/20 at 15:08; Status DC Sodium Chloride (Normal Saline Flush) 3 ml QSHIFT PRN IV AFTER MEDS AND BLOOD DRAWS; Start 05/05/20 at 15:15; Status Cancel Sodium Chloride 1,000 ml @ 50 mls/hr Q20H IV Last administered on 05/06/20at 10:36; Start 05/05/20 at 15:09; Stop 05/06/20 at 10:41; Status DC Aspirin (Ecotrin) 81 mg DAILYWBKFT PO Last administered on 05/07/20at 07:55; Start 05/06/20 at 08:00 Metoprolol Tartrate (Lopressor) 12.5 mg BID PO Last administered on 05/05/20at 20:51; Start 05/05/20 at 21:00; Stop 05/06/20 at 10:56; Status DC Lisinopril (Prinivil) 5 mg DAILY PO ; Start 05/06/20 at 09:00; Stop 05/06/20 at 08:59; Status DC Atorvastatin Calcium (Lipitor) 40 mg QHS PO Last administered on 05/06/20at 21:10; Start 05/05/20 at 21:00 Nitroglycerin (Nitrostat) 0.4 mg PRN Q5MIN PRN SL CHEST PAIN; Start 05/05/20 at 15:15 Atropine Sulfate (ATROPINE 0.5mg SYRINGE) 0.5 mg PRN 1X PRN IV BRADYCARDIA; Start 05/05/20 at 15:15 Oxycodone/ Acetaminophen (Percocet 5/325) 2 tab PRN Q4HRS PRN PO MODERATE PAIN, SEVERE PAIN; Start 05/05/20 at 15:15 Acetaminophen (Tylenol) 650 mg PRN Q6HRS PRN PO Headaches, Temp > 101.5'; Start 05/05/20 at 17:00 Lorazepam (Ativan Inj) 0.5 mg PRN Q6HRS PRN IVP ANXIETY / AGITATION; Start 05/05/20 at 17:00 Ondansetron HCl (Zofran) 4 mg PRN Q6HRS PRN IVP NAUSEA/VOMITING Last administered on 05/05/20at 21:12; Start 05/05/20 at 17:00 Sodium Chloride (Normal Saline Flush) 3 ml QSHIFT PRN IV AFTER MEDS AND BLOOD DRAWS; Start 05/05/20 at 17:00 Acetaminophen/ Hydrocodone Bitart (Lortab 5/325) 1 tab PRN Q4HRS PRN PO MILD PAIN 1-3 Last administered on 05/07/20at 05:27; Start 05/05/20 at 17:00 Morphine Sulfate (Morphine Sulfate) 1 mg PRN Q1HR PRN IV PAIN Last administered on 05/07/20at 15:32; Start 05/05/20 at 17:00 Senna/Docusate Sodium (Senna Plus) 1 tab BID PO Last administered on 05/06/20at 21:10; Start 05/05/20 at 21:00 Lactulose (Lactulose) 20 gm PRN Q12HR PRN PO CONSTIPATION; Start 05/05/20 at 17:00 Dopamine HCl/ Dextrose 250 ml @ 16.988 mls/ hr CONT PRN IV SEE I/O RECORD Last administered on 05/07/20at 11:42; Start 05/05/20 at 20:00 Alprazolam (Xanax) 0.25 mg PRN Q6HRS PRN PO ANXIETY / AGITATION Last administered on 05/07/20at 07:55; Start 05/05/20 at 20:45 Cyclobenzaprine HCl (Flexeril) 10 mg PRN DAILY PRN PO MUSCLE SPASMS Last administered on 05/06/20at 08:23; Start 05/05/20 at 20:45 Ticagrelor (Brilinta) 90 mg BID PO Last administered on 05/07/20at 09:00; Start 05/06/20 at 09:00 Lisinopril (Prinivil) 5 mg DAILY@1300 PO ; Start 05/06/20 at 13:00; Stop 05/06/20 at 10:56; Status DC Lisinopril (Prinivil) 5 mg DAILY@1300 PO ; Start 05/08/20 at 13:00 Metoprolol Tartrate (Lopressor) 12.5 mg BID PO ; Start 05/06/20 at 11:00 Amiodarone HCl 450 mg/Dextrose 259 ml @ 0 mls/hr CONT PRN IV SEE I/O RECORD Last administered on 05/07/20at 08:06; Start 05/06/20 at 15:45; Stop 05/07/20 at 10:49; Status DC Sodium Chloride 1,000 ml @ 100 mls/hr Q10H IV Last administered on 05/07/20at 01:04; Start 05/06/20 at 19:00 Info (Anti-Coagulation Monitoring By Pharmacy) 1 each PRN DAILY PRN MC SEE COMMENTS; Start 05/07/20 at 09:00; Status Cancel Clopidogrel Bisulfate (Plavix) 600 mg STK-MED ONCE .ROUTE ; Start 05/05/20 at 15:00; Stop 05/07/20 at 09:06; Status DC Famotidine (Pepcid) 20 mg BID PO ; Start 05/07/20 at 21:00 Magnesium Sulfate 50 ml @ 25 mls/hr 1X ONCE IV Last administered on 05/07/20at 10:50; Start 05/07/20 at 10:00; Stop 05/07/20 at 11:59; Status DC Lidocaine HCl (Xylocaine-Mpf 1% 2ml Vial) 2 ml STK-MED ONCE .ROUTE ; Start 05/07/20 at 13:02; Stop 05/07/20 at 13:02; Status DC Lidocaine HCl (Xylocaine 1% Pf 30ml Vial) 30 ml STK-MED ONCE .ROUTE ; Start 05/07/20 at 13:03; Stop 05/07/20 at 13:04; Status DC Active Scripts Active Reported D3 + K2 Dots 1,000 Units Tab (Vitamin D3/Vitamin K2) 1 Each Tab.rapdis 1 Tab PO HS 30 Days Multi Vitamin Daily (Multivitamin) 1 Each Tablet 1 Tab PO HS 30 Days Pepcid (Famotidine) 20 Mg Tablet 20 Mg PO BID Zoloft (Sertraline Hcl) 50 Mg Tablet 1 Tab PO HS Rapaflo (Silodosin) 8 Mg Capsule 1 Cap PO HS Simvastatin 40 Mg Tablet 1 Tab PO QHS Vitals/I & O Vital Sign - Last 24 Hours 05/06/20 05/06/20 05/06/20 05/06/20 17:00 17:00 18:00 18:00 Temp 98.2 98.2 Pulse 58 59 58 61 Resp 18 16 B/P (MAP) 102/51 (68) 101/50 (67) 107/56 (73) 109/51 (70) Pulse Ox 98 98 O2 Delivery Room Air Room Air 05/06/20 05/06/20 05/06/20 05/06/20 19:00 19:00 20:00 20:00 Pulse 55 57 63 59 Resp 12 18 B/P (MAP) 103/48 (66) 99/49 (66) Pulse Ox 99 99 O2 Delivery Room Air Room Air 05/06/20 05/06/20 05/06/20 05/06/20 20:00 21:00 21:00 22:00 Temp 98.5 98.5 Pulse 61 61 61 Resp 16 B/P (MAP) 110/49 (69) Pulse Ox 97 O2 Delivery Room Air Room Air 05/06/20 05/06/20 05/06/20 05/07/20 22:00 23:00 23:00 00:00 Pulse 61 65 65 Resp 13 15 B/P (MAP) 108/44 (65) 107/43 (64) Pulse Ox 97 98 O2 Delivery Room Air Room Air Room Air 05/07/20 05/07/20 05/07/20 05/07/20 00:00 00:00 00:12 01:00 Temp 98.6 98.6 Pulse 59 59 60 Resp 12 15 B/P (MAP) 106/47 (66) Pulse Ox 98 99 O2 Delivery Room Air Room Air 05/07/20 05/07/20 05/07/20 05/07/20 01:00 01:20 02:00 02:00 Pulse 60 63 63 Resp 19 12 12 B/P (MAP) 101/53 (69) 116/56 (76) Pulse Ox 97 97 96 O2 Delivery Room Air Room Air Room Air 05/07/20 05/07/20 05/07/20 05/07/20 03:00 03:00 03:15 04:00 Pulse 56 56 Resp 16 B/P (MAP) 127/53 (77) 104/45 (64) Pulse Ox 99 O2 Delivery Room Air Room Air 05/07/20 05/07/20 05/07/20 05/07/20 04:00 04:00 05:00 05:00 Temp 97.3 97.3 Pulse 58 58 60 56 Resp 10 10 B/P (MAP) 100/43 (62) 105/46 (65) Pulse Ox 98 98 O2 Delivery Room Air Room Air 05/07/20 05/07/20 05/07/20 05/07/20 05:27 06:00 06:00 06:36 Pulse 59 59 Resp 24 11 18 B/P (MAP) 111/47 (68) Pulse Ox 98 96 97 O2 Delivery Room Air Room Air Room Air 05/07/20 05/07/20 05/07/20 05/07/20 07:00 07:00 08:00 08:00 Temp 97.8 97.8 Pulse 59 50 52 Resp 15 13 B/P (MAP) 106/44 (64) 107/49 (68) Pulse Ox 99 98 O2 Delivery Room Air Room Air Nasal Cannula O2 Flow Rate 2.0 05/07/20 05/07/20 05/07/20 05/07/20 08:00 09:00 09:00 09:00 Pulse 48 48 50 51 Resp 17 B/P (MAP) 107/49 100/66 (77) Pulse Ox 99 O2 Delivery Room Air 05/07/20 05/07/20 05/07/20 05/07/20 10:00 10:00 10:30 11:00 Pulse 49 50 49 55 Resp 13 10 B/P (MAP) 105/50 (68) 107/44 (65) Pulse Ox 98 99 O2 Delivery Room Air Room Air 05/07/20 05/07/20 05/07/20 05/07/20 11:00 12:00 12:00 12:08 Temp 98.0 98.0 Pulse 48 64 60 Resp 17 B/P (MAP) 108/50 (69) 106/58 (74) Pulse Ox 100 99 O2 Delivery Room Air Room Air Nasal Cannula 05/07/20 05/07/20 05/07/20 05/07/20 12:30 13:00 13:00 13:15 Pulse 62 58 56 60 Resp 15 19 B/P (MAP) 94/54 (67) 100/60 (73) 108/62 (77) Pulse Ox 98 O2 Delivery Room Air Room Air Room Air 05/07/20 05/07/20 05/07/20 05/07/20 13:30 13:43 14:00 15:00 Pulse 60 58 56 55 Resp 15 18 12 B/P (MAP) 112/69 (83) 101/62 (75) 98/55 (69) 94/59 (71) O2 Delivery Room Air Room Air Room Air Room Air 05/07/20 05/07/20 05/07/20 15:32 16:00 16:00 Pulse 60 Resp 12 B/P (MAP) 106/67 (80) Pulse Ox 98 O2 Delivery Nasal Cannula Room Air Room Air O2 Flow Rate 2.0 Intake and Output 05/06/20 05/06/20 05/07/20 15:00 23:00 07:00 Intake Total 445 ml 1151 ml 2601 ml Output Total 1095 ml 1737 ml 1900 ml Balance -650 ml -586 ml 701 ml Justicifation of Admission Dx: Justifications for Admission: Justification of Admission Dx: Yes ME: Acute STEMI BRITTANIE GRIFFIN MD May 07, 2020 16:34
[2020-05-07] MEDS: FAMOTIDINE 20 MG TABLET. PO SCH (20:39)
[2020-05-07] MEDS: ATORVASTATIN CALCIUM 20 MG TABLET PO SCH (20:40)
[2020-05-08] VITALS (16 sets, daily range): BP systolic 89–165; BP diastolic 54–88
[2020-05-08 05:28] LABS: BASO % 0 % (0-3); EOS # 0.1 x10^3/uL (0.0-0.7); EOS % 1 % (0-3); HEMATOCRIT 36.1 % (39.0-53.0); HEMOGLOBIN 12.8 g/dL (13.0-17.5); LYMPH # 1.2 x10^3/uL (1.0-4.8); LYMPH % 12 % (24-48); MEAN CORPUSCULAR HEMOGLOBIN 33 pg (25-35); MEAN CORPUSCULAR HGB CONC 35 g/dL (31-37); MEAN CORPUSCULAR VOLUME 93 fL (79-100); MONO # 0.7 x10^3/uL (0.0-1.1); MONO % 8 % (0-9); NEUT % 80 % (31-73); PLATELET COUNT 148 x10^3/uL (140-400); RED BLOOD COUNT 3.88 x10^6/uL (4.30-5.70)
[2020-05-08 05:55] LABS: ALBUMIN 2.9 g/dL (3.4-5.0); CREATININE 1.3 mg/dL (0.7-1.3); GFR 55.4; POTASSIUM 3.7 mmol/L (3.5-5.1); TOTAL BILIRUBIN 0.9 mg/dL (0.2-1.0); TOTAL PROTEIN 5.8 g/dL (6.4-8.2)
[2020-05-08] MEDS: IV NORMAL SALINE 1000ML BAG 1,000 ML IV SCH ×3 (07:57→23:17)
[2020-05-08] MEDS: TICAGRELOR 90 MG TABLET. PO SCH ×2 (08:03→21:19)
[2020-05-08] MEDS: FAMOTIDINE 20 MG TABLET. PO SCH ×2 (08:03→21:21)
[2020-05-08] MEDS: ASPIRIN ENTERIC COATED 81 MG TABLET.DR. PO SCH (08:03)
[2020-05-08] MEDS: SENNOSIDES/DOCUSATE 8.6/50MG TABLET. PO SCH ×2 (08:03→21:19)
[2020-05-08] MEDS: METOPROLOL TART IMMED RELEASE 25 MG TABLET. PO SCH ×2 (09:00→21:19)
--- NOTE | 2020-05-08 09:34 | PDOC ---
PROGRESS NOTES Chief Complaint Chief Complaint IMPRESSION Acute STEMI IE, ST elevated myocardial infarction secondary to a proximal occlusion of the LAD. Successful stenting of the LAD lesion restoring flow with 0% residual lesion. Greater than 90% mid right coronary lesion. TOBACCO ABUSE DISORDER Successful placement of an aortic balloon pump. Left ventricle systolic function is severely impaired. The Ejection Fraction is 20-25%. There is apical akinesis There is severe hypokinesis of the distal anterior and mid to distal septal busch. balloon pump tip is identified at the proximal aspect of the descending thoracic aorta near junction with aortic arch. No focal airspace consolidation or pulmonary edema. continues to need dopamine infusion. We will wean off as tolerated. 05/08 DIABETES A1C 33 MIN CC TIME History of Present Illness Reason for Visit: The patient is a 64-year-old male who developed chest pain earlier today after mowing his lawn. It was severe and he rated it 10 out of 10. It is associated by mild shortness of breath. When it did not resolve for 45 to 60 minutes he called paramedics. EKG by the paramedics suggested an anterior ST elevated myocardial infarction and a STEMI protocol was activated. The patient was met in the emergency room when he arrived. He continues to be in moderate distress. Repeat EKG confirmed ST elevation in the anterior leads suggestive of a LAD lesion. He was treated with aspirin and heparin. Risks and benefits of emergency cardiac catheterization EXPLAINED Past Medical History Cardiovascular: HTN CENTRAL NERVOUS SYSTEM: Other (Mnire's disease) Past Surgical History Past Surgical History: Total hip replacement DM, Current or recent (<one month) smoker, HTN, HLP, family history of CAD, obesity. History of Present Illness History of Present Illness 05/07/20 Patient seen and examined Chart reviewed Discussed with RN O2 nasal canula Left ventricle systolic function is severely impaired. The Ejection Fraction is 20-25%. There is apical akinesis There is severe hypokinesis of the distal anterior and mid to distal septal busch. Troponin I: 209.36 EF: 20-35% Amiodarone drip Vitals Vitals Vital Signs Date Time Temp Pulse Resp B/P (MAP) Pulse Ox O2 Delivery O2 Flow Rate FiO2 05/08/20 08:50 52 30 107/65 (79) 98 Room Air 05/08/20 07:50 97.8 97.8 05/07/20 16:02 2.0 Physical Exam General: No acute distress Heart: Regular rate Lungs: Clear Abdomen: Normal bowel sounds Extremities: No cyanosis, Normal pulses Skin: No significant lesion Labs LABS Laboratory Tests Test 05/08/20 05:00 White Blood Count 10.0 x10^3/uL (4.0-11.0) Red Blood Count 3.88 x10^6/uL (4.30-5.70) Hemoglobin 12.8 g/dL (13.0-17.5) Hematocrit 36.1 % (39.0-53.0) Mean Corpuscular Volume 93 fL (79-100) Mean Corpuscular Hemoglobin 33 pg (25-35) Mean Corpuscular Hemoglobin Concent 35 g/dL (31-37) Red Cell Distribution Width 13.0 % (11.5-14.5) Platelet Count 148 x10^3/uL (140-400) Neutrophils (%) (Auto) 80 % (31-73) Lymphocytes (%) (Auto) 12 % (24-48) Monocytes (%) (Auto) 8 % (0-9) Eosinophils (%) (Auto) 1 % (0-3) Basophils (%) (Auto) 0 % (0-3) Neutrophils # (Auto) 8.0 x10^3/uL (1.8-7.7) Lymphocytes # (Auto) 1.2 x10^3/uL (1.0-4.8) Monocytes # (Auto) 0.7 x10^3/uL (0.0-1.1) Eosinophils # (Auto) 0.1 x10^3/uL (0.0-0.7) Basophils # (Auto) 0.0 x10^3/uL (0.0-0.2) Heparin Anti-Xa Act, Unfractionated < 0.10 IU/mL (0.30-0.70) Sodium Level 142 mmol/L (136-145) Potassium Level 3.7 mmol/L (3.5-5.1) Chloride Level 107 mmol/L (98-107) Carbon Dioxide Level 25 mmol/L (21-32) Anion Gap 10 (6-14) Blood Urea Nitrogen 10 mg/dL (8-26) Creatinine 1.3 mg/dL (0.7-1.3) Estimated GFR (Cockcroft-Gault) 55.4 BUN/Creatinine Ratio 8 (6-20) Glucose Level 111 mg/dL (70-99) Calcium Level 8.0 mg/dL (8.5-10.1) Total Bilirubin 0.9 mg/dL (0.2-1.0) Aspartate Amino Transf (AST/SGOT) 172 U/L (15-37) Alanine Aminotransferase (ALT/SGPT) 75 U/L (16-63) Alkaline Phosphatase 61 U/L (46-116) Total Protein 5.8 g/dL (6.4-8.2) Albumin 2.9 g/dL (3.4-5.0) Albumin/Globulin Ratio 1.0 (1.0-1.7) Assessment and Plan Assessmemt and Plan Problems Medical Problems: (1) STEMI (ST elevation myocardial infarction) Status: Acute Comment Review of Relevant I have reviewed the following items francisca (where applicable) has been applied. Labs Laboratory Tests Test 05/07/20 00:30 05/07/20 04:50 05/08/20 05:00 Urine Collection Type Unknown Urine Color Yellow Urine Clarity Clear Urine pH 5.5 (<5.0-8.0) Urine Specific [place] <=1.005 (1.000-1.030) Urine Protein Negative mg/dL (NEG-TRACE) Urine Glucose (UA) Negative mg/dL (NEG) Urine Ketones (Stick) Negative mg/dL (NEG) Urine Blood Negative (NEG) Urine Nitrite Negative (NEG) Urine Bilirubin Negative (NEG) Urine Urobilinogen Dipstick 0.2 mg/dL (0.2 mg/dL) Urine Leukocyte Esterase Negative (NEG) Urine RBC 0 /HPF (0-2) Urine WBC Occ /HPF (0-4) Urine Squamous Epithelial Cells Occ /LPF Urine Bacteria 0 /HPF (0-FEW) White Blood Count 13.5 x10^3/uL (4.0-11.0) 10.0 x10^3/uL (4.0-11.0) Red Blood Count 4.25 x10^6/uL (4.30-5.70) 3.88 x10^6/uL (4.30-5.70) Hemoglobin 13.8 g/dL (13.0-17.5) 12.8 g/dL (13.0-17.5) Hematocrit 39.7 % (39.0-53.0) 36.1 % (39.0-53.0) Mean Corpuscular Volume 93 fL (79-100) 93 fL (79-100) Mean Corpuscular Hemoglobin 32 pg (25-35) 33 pg (25-35) Mean Corpuscular Hemoglobin Concent 35 g/dL (31-37) 35 g/dL (31-37) Red Cell Distribution Width 13.3 % (11.5-14.5) 13.0 % (11.5-14.5) Platelet Count 175 x10^3/uL (140-400) 148 x10^3/uL (140-400) Neutrophils (%) (Auto) 77 % (31-73) 80 % (31-73) Lymphocytes (%) (Auto) 14 % (24-48) 12 % (24-48) Monocytes (%) (Auto) 8 % (0-9) 8 % (0-9) Eosinophils (%) (Auto) 1 % (0-3) 1 % (0-3) Basophils (%) (Auto) 0 % (0-3) 0 % (0-3) Neutrophils # (Auto) 10.4 x10^3/uL (1.8-7.7) 8.0 x10^3/uL (1.8-7.7) Lymphocytes # (Auto) 1.9 x10^3/uL (1.0-4.8) 1.2 x10^3/uL (1.0-4.8) Monocytes # (Auto) 1.1 x10^3/uL (0.0-1.1) 0.7 x10^3/uL (0.0-1.1) Eosinophils # (Auto) 0.1 x10^3/uL (0.0-0.7) 0.1 x10^3/uL (0.0-0.7) Basophils # (Auto) 0.1 x10^3/uL (0.0-0.2) 0.0 x10^3/uL (0.0-0.2) Heparin Anti-Xa Act, Unfractionated 0.49 IU/mL (0.30-0.70) < 0.10 IU/mL (0.30-0.70) Sodium Level 141 mmol/L (136-145) 142 mmol/L (136-145) Potassium Level 4.1 mmol/L (3.5-5.1) 3.7 mmol/L (3.5-5.1) Chloride Level 106 mmol/L (98-107) 107 mmol/L (98-107) Carbon Dioxide Level 26 mmol/L (21-32) 25 mmol/L (21-32) Anion Gap 9 (6-14) 10 (6-14) Blood Urea Nitrogen 10 mg/dL (8-26) 10 mg/dL (8-26) Creatinine 1.3 mg/dL (0.7-1.3) 1.3 mg/dL (0.7-1.3) Estimated GFR (Cockcroft-Gault) 55.4 55.4 Glucose Level 120 mg/dL (70-99) 111 mg/dL (70-99) Calcium Level 8.4 mg/dL (8.5-10.1) 8.0 mg/dL (8.5-10.1) Magnesium Level 1.9 mg/dL (1.8-2.4) Total Bilirubin 0.9 mg/dL (0.2-1.0) 0.9 mg/dL (0.2-1.0) Direct Bilirubin 0.2 mg/dL (0.0-0.2) Aspartate Amino Transf (AST/SGOT) 314 U/L (15-37) 172 U/L (15-37) Alanine Aminotransferase (ALT/SGPT) 104 U/L (16-63) 75 U/L (16-63) Alkaline Phosphatase 61 U/L (46-116) 61 U/L (46-116) Total Protein 6.2 g/dL (6.4-8.2) 5.8 g/dL (6.4-8.2) Albumin 3.2 g/dL (3.4-5.0) 2.9 g/dL (3.4-5.0) BUN/Creatinine Ratio 8 (6-20) Albumin/Globulin Ratio 1.0 (1.0-1.7) Laboratory Tests Test 05/08/20 05:00 White Blood Count 10.0 x10^3/uL (4.0-11.0) Red Blood Count 3.88 x10^6/uL (4.30-5.70) Hemoglobin 12.8 g/dL (13.0-17.5) Hematocrit 36.1 % (39.0-53.0) Mean Corpuscular Volume 93 fL (79-100) Mean Corpuscular Hemoglobin 33 pg (25-35) Mean Corpuscular Hemoglobin Concent 35 g/dL (31-37) Red Cell Distribution Width 13.0 % (11.5-14.5) Platelet Count 148 x10^3/uL (140-400) Neutrophils (%) (Auto) 80 % (31-73) Lymphocytes (%) (Auto) 12 % (24-48) Monocytes (%) (Auto) 8 % (0-9) Eosinophils (%) (Auto) 1 % (0-3) Basophils (%) (Auto) 0 % (0-3) Neutrophils # (Auto) 8.0 x10^3/uL (1.8-7.7) Lymphocytes # (Auto) 1.2 x10^3/uL (1.0-4.8) Monocytes # (Auto) 0.7 x10^3/uL (0.0-1.1) Eosinophils # (Auto) 0.1 x10^3/uL (0.0-0.7) Basophils # (Auto) 0.0 x10^3/uL (0.0-0.2) Heparin Anti-Xa Act, Unfractionated < 0.10 IU/mL (0.30-0.70) Sodium Level 142 mmol/L (136-145) Potassium Level 3.7 mmol/L (3.5-5.1) Chloride Level 107 mmol/L (98-107) Carbon Dioxide Level 25 mmol/L (21-32) Anion Gap 10 (6-14) Blood Urea Nitrogen 10 mg/dL (8-26) Creatinine 1.3 mg/dL (0.7-1.3) Estimated GFR (Cockcroft-Gault) 55.4 BUN/Creatinine Ratio 8 (6-20) Glucose Level 111 mg/dL (70-99) Calcium Level 8.0 mg/dL (8.5-10.1) Total Bilirubin 0.9 mg/dL (0.2-1.0) Aspartate Amino Transf (AST/SGOT) 172 U/L (15-37) Alanine Aminotransferase (ALT/SGPT) 75 U/L (16-63) Alkaline Phosphatase 61 U/L (46-116) Total Protein 5.8 g/dL (6.4-8.2) Albumin 2.9 g/dL (3.4-5.0) Albumin/Globulin Ratio 1.0 (1.0-1.7) Medications Current Medications Ondansetron HCl (Zofran) 4 mg PRN Q8HRS PRN IV NAUSEA/VOMITING; Start 05/05/20 at 13:45; Stop 05/06/20 at 09:05; Status DC Iodixanol (Visipaque 320) 100 ml STK-MED ONCE .ROUTE ; Start 05/05/20 at 13:49; Stop 05/05/20 at 13:49; Status DC Fentanyl Citrate (Fentanyl 2ml Vial) 100 mcg STK-MED ONCE .ROUTE ; Start 05/05/20 at 13:49; Stop 05/05/20 at 13:49; Status DC Midazolam HCl (Versed) 2 mg STK-MED ONCE .ROUTE ; Start 05/05/20 at 13:50; Stop 05/05/20 at 13:50; Status DC Heparin Sodium (Porcine) (Heparin Sodium) 10,000 unit STK-MED ONCE .ROUTE ; Start 05/05/20 at 13:50; Stop 05/05/20 at 13:50; Status DC Bivalirudin (Angiomax) 250 mg STK-MED ONCE IV ; Start 05/05/20 at 13:59; Stop 05/05/20 at 13:59; Status DC Dopamine HCl/ Dextrose 250 ml @ As Directed STK-MED ONCE IV ; Start 05/05/20 at 14:02; Stop 05/05/20 at 14:02; Status DC Amiodarone HCl (Cordarone) 150 mg STK-MED ONCE .ROUTE ; Start 05/05/20 at 14:08; Stop 05/05/20 at 14:09; Status DC Ondansetron HCl (Zofran) 4 mg STK-MED ONCE .ROUTE ; Start 05/05/20 at 14:15; Stop 05/05/20 at 14:15; Status DC Heparin Sodium/ Sodium Chloride 500 ml @ As Directed STK-MED ONCE .ROUTE ; Start 05/05/20 at 14:16; Stop 05/05/20 at 14:17; Status DC Iodixanol (Visipaque 320) 100 ml STK-MED ONCE .ROUTE ; Start 05/05/20 at 14:20; Stop 05/05/20 at 14:20; Status DC Lidocaine HCl (Lidocaine 1% 20ml Vial) 20 ml STK-MED ONCE .ROUTE ; Start 05/05/20 at 14:21; Stop 05/05/20 at 14:21; Status DC Heparin Sodium/ Sodium Chloride (HEPARIN for ARTERIAL LINE FLUSH) 1,000 unit 1X ONCE IART Last administered on 05/05/20at 14:57; Start 05/05/20 at 14:30; Stop 05/05/20 at 14:49; Status DC Heparin Sodium/ Sodium Chloride (HEPARIN for ARTERIAL LINE FLUSH) 1,000 unit 1X ONCE IART Last administered on 05/05/20at 14:57; Start 05/05/20 at 14:30; Stop 05/05/20 at 14:49; Status DC Midazolam HCl (Versed) 1 mg 1X ONCE IV Last administered on 05/05/20at 15:00; Start 05/05/20 at 14:30; Stop 05/05/20 at 14:49; Status DC Fentanyl Citrate (Fentanyl 2ml Vial) 12.5 mcg 1X ONCE IV Last administered on 05/05/20at 15:00; Start 05/05/20 at 14:30; Stop 05/05/20 at 14:49; Status DC Iodixanol (Visipaque 320) 100 ml 1X ONCE IART Last administered on 05/05/20at 14:57; Start 05/05/20 at 14:30; Stop 05/05/20 at 14:49; Status DC Bivalirudin (Angiomax) 250 mg 1X ONCE IV Last administered on 05/05/20at 14:58; Start 05/05/20 at 14:30; Stop 05/05/20 at 14:49; Status DC Clopidogrel Bisulfate (Plavix) 600 mg 1X ONCE PO ; Start 05/05/20 at 14:30; Stop 05/05/20 at 15:05; Status DC Lidocaine HCl (Lidocaine 1% 20ml Vial) 18 ml 1X ONCE INJ Last administered on 05/05/20at 14:58; Start 05/05/20 at 14:30; Stop 05/05/20 at 14:49; Status DC Amiodarone HCl (Cordarone) 150 mg 1X ONCE IVP Last administered on 05/05/20at 14:59; Start 05/05/20 at 14:30; Stop 05/05/20 at 14:36; Status DC Amiodarone HCl 450 mg/Dextrose 259 ml @ 0 mls/hr CONT PRN IV SEE I/O RECORD Last administered on 05/05/20at 22:45; Start 05/05/20 at 14:30; Stop 05/05/20 at 22:46; Status DC Ondansetron HCl (Zofran) 4 mg 1X ONCE IVP Last administered on 05/05/20at 14:59; Start 05/05/20 at 14:30; Stop 05/05/20 at 14:37; Status DC Heparin Sodium/ Dextrose 250 ml @ 10 mls/hr CONT PRN IV PER PROTOCOL Last administered on 05/07/20at 05:26; Start 05/05/20 at 14:30; Stop 05/07/20 at 09:41; Status DC Heparin Sodium (Porcine) (Heparin Sodium) 2,250 unit PRN Q6HRS PRN IV FOR UFH LEVEL LESS THAN 0.2 Last administered on 05/05/20at 19:42; Start 05/05/20 at 14:30; Stop 05/07/20 at 09:41; Status DC Heparin Sodium/ Sodium Chloride (HEPARIN for ARTERIAL LINE FLUSH) 1,000 unit 1X ONCE IART Last administered on 05/05/20at 14:57; Start 05/05/20 at 14:30; Stop 05/05/20 at 14:49; Status DC Dopamine HCl/ Dextrose 250 ml @ 17.006 mls/ hr 1X ONCE IV Last administered on 05/05/20at 14:06; Start 05/05/20 at 14:45; Stop 05/06/20 at 05:27; Status DC Heparin Sodium (Porcine) (Heparin Sodium) 4,000 unit 1X ONCE IV Last administered on 05/05/20at 13:37; Start 05/05/20 at 13:31; Stop 05/05/20 at 14:57; Status DC Morphine Sulfate (Morphine Sulfate) 4 mg 1X ONCE IV Last administered on 05/05/20at 13:38; Start 05/05/20 at 13:32; Stop 05/05/20 at 14:57; Status DC Ticagrelor (Brilinta) 90 mg STK-MED ONCE .ROUTE ; Start 05/05/20 at 14:46; Stop 05/05/20 at 14:47; Status DC Info (CONTRAST GIVEN -- Rx MONITORING) 1 each PRN DAILY PRN MC SEE COMMENTS; Start 05/05/20 at 15:00; Stop 05/07/20 at 14:59; Status DC Ticagrelor (Brilinta) 180 mg 1X ONCE PO Last administered on 05/05/20at 15:11; Start 05/05/20 at 15:15; Stop 05/05/20 at 15:16; Status DC Ticagrelor (Brilinta) 180 mg 1X ONCE PO Last administered on 05/05/20at 17:45; Start 05/05/20 at 15:15; Stop 05/05/20 at 15:16; Status DC Heparin Sodium/ Dextrose 250 ml @ As Directed STK-MED ONCE IV ; Start 05/05/20 at 15:08; Stop 05/05/20 at 15:08; Status DC Sodium Chloride (Normal Saline Flush) 3 ml QSHIFT PRN IV AFTER MEDS AND BLOOD DRAWS; Start 05/05/20 at 15:15; Status Cancel Sodium Chloride 1,000 ml @ 50 mls/hr Q20H IV Last administered on 05/06/20at 10:36; Start 05/05/20 at 15:09; Stop 05/06/20 at 10:41; Status DC Aspirin (Ecotrin) 81 mg DAILYWBKFT PO Last administered on 05/08/20at 08:03; Start 05/06/20 at 08:00 Metoprolol Tartrate (Lopressor) 12.5 mg BID PO Last administered on 05/05/20at 20:51; Start 05/05/20 at 21:00; Stop 05/06/20 at 10:56; Status DC Lisinopril (Prinivil) 5 mg DAILY PO ; Start 05/06/20 at 09:00; Stop 05/06/20 at 08:59; Status DC Atorvastatin Calcium (Lipitor) 40 mg QHS PO Last administered on 05/07/20at 20:4 0; Start 05/05/20 at 21:00 Nitroglycerin (Nitrostat) 0.4 mg PRN Q5MIN PRN SL CHEST PAIN; Start 05/05/20 at 15:15 Atropine Sulfate (ATROPINE 0.5mg SYRINGE) 0.5 mg PRN 1X PRN IV BRADYCARDIA; Start 05/05/20 at 15:15 Oxycodone/ Acetaminophen (Percocet 5/325) 2 tab PRN Q4HRS PRN PO MODERATE PAIN, SEVERE PAIN; Start 05/05/20 at 15:15 Acetaminophen (Tylenol) 650 mg PRN Q6HRS PRN PO Headaches, Temp > 101.5'; Start 05/05/20 at 17:00 Lorazepam (Ativan Inj) 0.5 mg PRN Q6HRS PRN IVP ANXIETY / AGITATION; Start 04/15 12/04 at 17:00 Ondansetron HCl (Zofran) 4 mg PRN Q6HRS PRN IVP NAUSEA/VOMITING Last administered on 05/05/20at 21:12; Start 05/05/20 at 17:00 Sodium Chloride (Normal Saline Flush) 3 ml QSHIFT PRN IV AFTER MEDS AND BLOOD DRAWS; Start 05/05/20 at 17:00 Acetaminophen/ Hydrocodone Bitart (Lortab 5/325) 1 tab PRN Q4HRS PRN PO MILD PAIN 1-3 Last administered on 05/07/20at 05:27; Start 05/05/20 at 17:00 Morphine Sulfate (Morphine Sulfate) 1 mg PRN Q1HR PRN IV PAIN Last administered on 05/07/20at 15:32; Start 05/05/20 at 17:00 Senna/Docusate Sodium (Senna Plus) 1 tab BID PO Last administered on 05/08/20at 08:03; Start 05/05/20 at 21:00 Lactulose (Lactulose) 20 gm PRN Q12HR PRN PO CONSTIPATION; Start 05/05/20 at 17:00 Dopamine HCl/ Dextrose 250 ml @ 16.988 mls/ hr CONT PRN IV SEE I/O RECORD Last administered on 05/08/20at 07:59; Start 05/05/20 at 20:00 Alprazolam (Xanax) 0.25 mg PRN Q6HRS PRN PO ANXIETY / AGITATION Last administered on 05/07/20at 07:55; Start 05/05/20 at 20:45 Cyclobenzaprine HCl (Flexeril) 10 mg PRN DAILY PRN PO MUSCLE SPASMS Last administered on 05/06/20at 08:23; Start 05/05/20 at 20:45 Ticagrelor (Brilinta) 90 mg BID PO Last administered on 05/08/20at 08:03; Start 05/06/20 at 09:00 Lisinopril (Prinivil) 5 mg DAILY@1300 PO ; Start 05/06/20 at 13:00; Stop 05/06/20 at 10:56; Status DC Lisinopril (Prinivil) 5 mg DAILY@1300 PO ; Start 05/08/20 at 13:00 Metoprolol Tartrate (Lopressor) 12.5 mg BID PO ; Start 05/06/20 at 11:00 Amiodarone HCl 450 mg/Dextrose 259 ml @ 0 mls/hr CONT PRN IV SEE I/O RECORD [facility] administered on 05/07/20at 08:06; Start 05/06/20 at 15:45; Stop 05/07/20 at 10:49; Status DC Sodium Chloride 1,000 ml @ 100 mls/hr Q10H IV Last administered on 05/08/20at 07:57; Start 05/06/20 at 19:00 Info (Anti-Coagulation Monitoring By Pharmacy) 1 each PRN DAILY PRN MC SEE COMMENTS; Start 05/07/20 at 09:00; Status Cancel Clopidogrel Bisulfate (Plavix) 600 mg STK-MED ONCE .ROUTE ; Start 05/05/20 at 15:00; Stop 05/07/20 at 09:06; Status DC Famotidine (Pepcid) 20 mg BID PO Last administered on 05/08/20at 08:03; Start 05/07/20 at 21:00 Magnesium Sulfate 50 ml @ 25 mls/hr 1X ONCE IV Last administered on 05/07/20at 10:50; Start 05/07/20 at 10:00; Stop 05/07/20 at 11:59; Status DC Lidocaine HCl (Xylocaine-Mpf 1% 2ml Vial) 2 ml STK-MED ONCE .ROUTE ; Start 05/07/20 at 13:02; Stop 05/07/20 at 13:02; Status DC Lidocaine HCl (Xylocaine 1% Pf 30ml Vial) 30 ml STK-MED ONCE .ROUTE ; Start 05/07/20 at 13:03; Stop 05/07/20 at 13:04; Status DC Sertraline HCl (Zoloft) 50 mg HS PO ; Start 05/08/20 at 21:00 Tamsulosin HCl (Flomax) 0.4 mg HS PO ; Start 05/08/20 at 21:00 Active Scripts Active Reported D3 + K2 Dots 1,000 Units Tab (Vitamin D3/Vitamin K2) 1 Each Tab.rapdis 1 Tab PO HS 30 Days Multi Vitamin Daily (Multivitamin) 1 Each Tablet 1 Tab PO HS 30 Days Pepcid (Famotidine) 20 Mg Tablet 20 Mg PO BID Zoloft (Sertraline Hcl) 50 Mg Tablet 1 Tab PO HS Rapaflo (Silodosin) 8 Mg Capsule 1 Cap PO HS Simvastatin 40 Mg Tablet 1 Tab PO QHS Vitals/I & O Vital Sign - Last 24 Hours 05/07/20 05/07/20 05/07/20 05/07/20 10:00 10:00 10:30 11:00 Pulse 49 50 49 55 Resp 13 10 B/P (MAP) 105/50 (68) 107/44 (65) Pulse Ox 98 99 O2 Delivery Room Air Room Air 05/07/20 05/07/20 05/07/20 05/07/20 11:00 12:00 12:00 12:08 Temp 98.0 98.0 Pulse 48 64 60 Resp 17 B/P (MAP) 108/50 (69) 106/58 (74) Pulse Ox 100 99 O2 Delivery Room Air Room Air Nasal Cannula 05/07/20 05/07/20 05/07/20 05/07/20 12:30 13:00 13:00 13:15 Pulse 62 58 56 60 Resp 15 19 B/P (MAP) 94/54 (67) 100/60 (73) 108/62 (77) Pulse Ox 98 O2 Delivery Room Air Room Air Room Air 05/07/20 05/07/20 05/07/20 05/07/20 13:30 13:43 14:00 15:00 Pulse 60 58 56 55 Resp 15 18 12 B/P (MAP) 112/69 (83) 101/62 (75) 98/55 (69) 94/59 (71) O2 Delivery Room Air Room Air Room Air Room Air 05/07/20 05/07/20 05/07/2005/07/20 15:32 16:00 16:00 16:02 Pulse 60 Resp 12 B/P (MAP) 106/67 (80) Pulse Ox 98 98 O2 Delivery Nasal Cannula Room Air Room Air Room Air O2 Flow Rate 2.0 2.0 05/07/20 05/07/20 05/07/20 05/07/20 17:00 18:00 19:00 19:35 Temp 97.0 97.0 Pulse 64 62 64 Resp 18 B/P (MAP) 118/68 (85) 106/62 (77) 99/81 (87) Pulse Ox 95 98 99 O2 Delivery Room Air Room Air Room Air Room Air 05/07/20 05/07/20 05/07/20 05/07/20 20:00 20:34 21:00 22:00 Temp 97.5 97.5 Pulse 56 56 60 58 Resp 18 18 18 B/P (MAP) 92/56 (68) 92/59 82/56 (65) 91/58 (69) Pulse Ox 99 97 98 O2 Delivery Room Air Room Air Room Air 05/07/20 05/08/20 05/08/20 05/08/20 23:00 00:00 00:15 01:00 Temp 98.1 98.1 Pulse 61 61 58 Resp 18 18 18 B/P (MAP) 87/59 (68) 98/60 (73) 91/63 (72) Pulse Ox 97 97 95 O2 Delivery Room Air Room Air Room Air Room Air 05/08/20 05/08/20 05/08/20 05/08/20 02:00 03:00 04:00 04:00 Temp 98.3 98.3 Pulse 58 63 61 Resp 21 19 15 B/P (MAP) 99/65 (76) 89/61 (70) 112/72 (85) Pulse Ox 97 95 97 O2 Delivery Room Air Room Air Room Air Room Air 05/08/20 05/08/20 05/08/20 05/08/20 05:00 06:00 07:50 08:10 Temp 97.8 97.8 Pulse 71 61 59 Resp 19 19 14 B/P (MAP) 107/68 (81) 92/62 (72) 94/60 (71) Pulse Ox 95 95 99 O2 Delivery Room Air Room Air Room Air Room Air 05/08/20 08:50 Pulse 52 Resp 30 B/P (MAP) 107/65 (79) Pulse Ox 98 O2 Delivery Room Air Intake and Output 05/07/20 05/07/20 05/08/20 15:00 23:00 07:00 Intake Total 975 ml 1751 ml 1437 ml Output Total 980 ml 1575 ml 1250 ml Balance -5 ml 176 ml 187 ml Justicifation of Admission Dx: Justifications for Admission: Justification of Admission Dx: Yes IN: Acute STEMI TERRA SMITH MD May 08, 2020 09:34
--- NOTE | 2020-05-08 10:45 | PDOC ---
PROGRESS NOTES Subjective Subjective Patient feeling better. Denied any chest pain. Objective Objective Vital Signs Date Time Temp Pulse Resp B/P (MAP) Pulse Ox O2 Delivery O2 Flow Rate FiO2 05/08/20 09:50 54 24 165/88 (113) 98 Room Air 05/08/20 07:50 97.8 97.8 05/07/20 16:02 2.0 Intake and Output 05/08/20 07:00 Intake Total 4163 ml Output Total 3805 ml Balance 358 ml Intake Oral 1314 ml IV Total 2849 ml Output Urine Total 3805 ml Physical Exam Abdomen: Normal bowel sounds Heart: Regular rate Extremities: No cyanosis, Normal pulses General: No acute distress HEENT: Atraumatic Lungs: Other (Slightly decreased breath sounds) Skin: No significant lesion Assessment Assessment 1. Acute anterior wall STEMI s/p PCI/ERICKA to LAD. Patient has residual 90% stenosis involving RCA that is being planned to be intervened upon in the future. He is presently stable and chest pain-free. Telemetry did not show any significant arrhythmias. Continue current medications including dual antiplatelet therapy. 2. Acute combined systolic and diastolic heart failure, cardiogenic shock with 2D echo showing LVEF 20 to 25%. IABP removed yesterday successfully. Patient however continues to need dopamine infusion. We will wean off as tolerated. Patient beta-blockers were held earlier today secondary to bradycardia. 3. Hyperlipidemia: Continue statin therapy Plan Plan of Care Problems Medical Problems: (1) STEMI (ST elevation myocardial infarction) Status: Acute Comment Review of Relevant I have reviewed the following items francisca (where applicable) has been applied. Labs Laboratory Tests Test 05/08/20 05:00 White Blood Count 10.0 x10^3/uL (4.0-11.0) Red Blood Count 3.88 x10^6/uL (4.30-5.70) Hemoglobin 12.8 g/dL (13.0-17.5) Hematocrit 36.1 % (39.0-53.0) Mean Corpuscular Volume 93 fL (79-100) Mean Corpuscular Hemoglobin 33 pg (25-35) Mean Corpuscular Hemoglobin Concent 35 g/dL (31-37) Red Cell Distribution Width 13.0 % (11.5-14.5) Platelet Count 148 x10^3/uL (140-400) Neutrophils (%) (Auto) 80 % (31-73) Lymphocytes (%) (Auto) 12 % (24-48) Monocytes (%) (Auto) 8 % (0-9) Eosinophils (%) (Auto) 1 % (0-3) Basophils (%) (Auto) 0 % (0-3) Neutrophils # (Auto) 8.0 x10^3/uL (1.8-7.7) Lymphocytes # (Auto) 1.2 x10^3/uL (1.0-4.8) Monocytes # (Auto) 0.7 x10^3/uL (0.0-1.1) Eosinophils # (Auto) 0.1 x10^3/uL (0.0-0.7) Basophils # (Auto) 0.0 x10^3/uL (0.0-0.2) Heparin Anti-Xa Act, Unfractionated < 0.10 IU/mL (0.30-0.70) Sodium Level 142 mmol/L (136-145) Potassium Level 3.7 mmol/L (3.5-5.1) Chloride Level 107 mmol/L (98-107) Carbon Dioxide Level 25 mmol/L (21-32) Anion Gap 10 (6-14) Blood Urea Nitrogen 10 mg/dL (8-26) Creatinine 1.3 mg/dL (0.7-1.3) Estimated GFR (Cockcroft-Gault) 55.4 BUN/Creatinine Ratio 8 (6-20) Glucose Level 111 mg/dL (70-99) Calcium Level 8.0 mg/dL (8.5-10.1) Total Bilirubin 0.9 mg/dL (0.2-1.0) Aspartate Amino Transf (AST/SGOT) 172 U/L (15-37) Alanine Aminotransferase (ALT/SGPT) 75 U/L (16-63) Alkaline Phosphatase 61 U/L (46-116) Total Protein 5.8 g/dL (6.4-8.2) Albumin 2.9 g/dL (3.4-5.0) Albumin/Globulin Ratio 1.0 (1.0-1.7) Medications Current Medications Famotidine (Pepcid) 20 mg BID PO Last administered on 05/08/20at 08:03; Start 05/07/20 at 21:00 Lidocaine HCl (Xylocaine 1% Pf 30ml Vial) 30 ml Fiberspar ONCE .ROUTE ; Start 05/07/20 at 13:03; Stop 05/07/20 at 13:04; Status DC Lidocaine HCl (Xylocaine-Mpf 1% 2ml Vial) 2 ml STK-MED ONCE .ROUTE ; Start 05/07/20 at 13:02; Stop 05/07/20 at 13:02; Status DC Lisinopril (Prinivil) 5 mg DAILY@1300 PO ; Start 05/08/20 at 13:00 Sertraline HCl (Zoloft) 50 mg HS PO ; Start 05/08/20 at 21:00 Tamsulosin HCl (Flomax) 0.4 mg HS PO ; Start 05/08/20 at 21:00 Vitals/I & O Vital Sign - Last 24 Hours 05/07/20 05/07/20 05/07/20 05/07/20 11:00 11:00 12:00 12:00 Temp 98.0 98.0 Pulse 55 48 64 60 Resp 17 B/P (MAP) 108/50 (69) 106/58 (74) Pulse Ox 100 99 O2 Delivery Room Air Room Air 05/07/20 05/07/20 05/07/20 05/07/20 12:08 12:30 13:00 13:00 Pulse 62 58 56 Resp 15 B/P (MAP) 94/54 (67) 100/60 (73) Pulse Ox 98 O2 Delivery Nasal Cannula Room Air Room Air 05/07/20 05/07/20 05/07/20 05/07/20 13:15 13:30 13:43 14:00 Pulse 60 60 58 56 Resp 19 15 18 12 B/P (MAP) 108/62 (77) 112/69 (83) 101/62 (75) 98/55 (69) O2 Delivery Room Air Room Air Room Air Room Air 05/07/20 05/07/20 05/07/20 05/07/20 15:00 15:32 16:00 16:00 Pulse 55 60 Resp 12 B/P (MAP) 94/59 (71) 106/67 (80) Pulse Ox 98 O2 Delivery Room Air Nasal Cannula Room Air Room Air O2 Flow Rate 2.0 05/07/20 05/07/20 05/07/20 05/07/20 16:02 17:00 18:00 19:00 Temp 97.0 97.0 Pulse 64 62 64 Resp 18 B/P (MAP) 118/68 (85) 106/62 (77) 99/81 (87) Pulse Ox 98 95 98 99 O2 Delivery Room Air Room Air Room Air Room Air O2 Flow Rate 2.0 05/07/20 05/07/20 05/07/20 05/07/20 19:35 20:00 20:34 21:00 Temp 97.5 97.5 Pulse 56 56 60 Resp 18 18 B/P (MAP) 92/56 (68) 92/59 82/56 (65) Pulse Ox 99 97 O2 Delivery Room Air Room Air Room Air 05/07/20 05/07/20 05/08/20 05/08/20 22:00 23:00 00:00 00:15 Temp 98.1 98.1 Pulse 58 61 61 Resp 18 18 18 B/P (MAP) 91/58 (69) 87/59 (68) 98/60 (73) Pulse Ox 98 97 97 O2 Delivery Room Air Room Air Room Air Room Air 05/08/20 05/08/20 05/08/20 05/08/20 01:00 02:00 03:00 04:00 Pulse 58 58 63 Resp 18 21 19 B/P (MAP) 91/63 (72) 99/65 (76) 89/61 (70) Pulse Ox 95 97 95 O2 Delivery Room Air Room Air Room Air Room Air 05/08/20 05/08/20 05/08/20 05/08/20 04:00 05:00 06:00 07:50 Temp 98.3 97.8 98.3 97.8 Pulse 61 71 61 59 Resp 15 19 19 14 B/P (MAP) 112/72 (85) 107/68 (81) 92/62 (72) 94/60 (71) Pulse Ox 97 95 95 99 O2 Delivery Room Air Room Air Room Air Room Air 05/08/20 05/08/20 05/08/20 08:10 08:50 09:50 Pulse 52 54 Resp 30 24 B/P (MAP) 107/65 (79) 165/88 (113) Pulse Ox 98 98 O2 Delivery Room Air Room Air Room Air Intake and Output 05/07/20 05/07/20 05/08/20 15:00 23:00 07:00 Intake Total 975 ml 1751 ml 1437 ml Output Total 980 ml 1575 ml 1250 ml Balance -5 ml 176 ml 187 ml LATOYA MULLEN MD May 08, 2020 10:45
[2020-05-08] MEDS: LISINOPRIL 5 MG TABLET. PO SCH (13:00)
[2020-05-08] MEDS: ATORVASTATIN CALCIUM 20 MG TABLET PO SCH (21:18)
[2020-05-08] MEDS: TAMSULOSIN 0.4 MG CAP.ER.24H. PO SCH (21:19)
[2020-05-08] MEDS: SERTRALINE 50 MG TABLET. PO SCH (21:19)
[2020-05-08] MEDS: CYCLOBENZAPRINE 10 MG TABLET. PO PRN (21:23)
[2020-05-08] MEDS: HYDROcodone/APAP 5/325MG 1 TAB TABLET PO PRN (23:24)
[2020-05-09] VITALS (11 sets, daily range): BP systolic 12–120; BP diastolic 49–59
[2020-05-09 04:52] LABS: BASO % 0 % (0-3); EOS # 0.2 x10^3/uL (0.0-0.7); EOS % 2 % (0-3); HEMATOCRIT 35.5 % (39.0-53.0); HEMOGLOBIN 12.5 g/dL (13.0-17.5); LYMPH # 1.1 x10^3/uL (1.0-4.8); LYMPH % 12 % (24-48); MEAN CORPUSCULAR HEMOGLOBIN 32 pg (25-35); MEAN CORPUSCULAR HGB CONC 35 g/dL (31-37); MEAN CORPUSCULAR VOLUME 92 fL (79-100); MONO # 0.7 x10^3/uL (0.0-1.1); MONO % 8 % (0-9); NEUT # 7.1 x10^3/uL (1.8-7.7); NEUT % 78 % (31-73); PLATELET COUNT 152 x10^3/uL (140-400); RED BLOOD COUNT 3.86 x10^6/uL (4.30-5.70); RED CELL DISTRIBUTION WIDTH 13.2 % (11.5-14.5); WHITE BLOOD COUNT 9.1 x10^3/uL (4.0-11.0)
[2020-05-09 05:15] LABS: ALBUMIN 2.9 g/dL (3.4-5.0); ALBUMIN/GLOBULIN RATIO 0.9 (1.0-1.7); CALCIUM 8.2 mg/dL (8.5-10.1); CREATININE 1.4 mg/dL (0.7-1.3); GFR 50.9; POTASSIUM 3.6 mmol/L (3.5-5.1)
--- NOTE | 2020-05-09 08:01 | PDOC ---
PROGRESS NOTES Chief Complaint Chief Complaint IMPRESSION Acute STEMI IE, ST elevated myocardial infarction secondary to a proximal occlusion of the LAD. Successful stenting of the LAD lesion restoring flow with 0% residual lesion. Greater than 90% mid right coronary lesion. TOBACCO ABUSE DISORDER Successful placement of an aortic balloon pump. Left ventricle systolic function is severely impaired. The Ejection Fraction is 20-25%. There is apical akinesis There is severe hypokinesis of the distal anterior and mid to distal septal busch. balloon pump tip is identified at the proximal aspect of the descending thoracic aorta near junction with aortic arch. No focal airspace consolidation or pulmonary edema. continues to need dopamine infusion. We will wean off as tolerated. 05/08 DIABETES A1C rca stent 05/10 D/W RN History of Present Illness Reason for Visit: The patient is a 64-year-old male who developed chest pain earlier today after mowing his lawn. It was severe and he rated it 10 out of 10. It is associated by mild shortness of breath. When it did not resolve for 45 to 60 minutes he called paramedics. EKG by the paramedics suggested an anterior ST elevated myocardial infarction and a STEMI protocol was activated. The patient was met in the emergency room when he arrived. He continues to be in moderate distress. Repeat EKG confirmed ST elevation in the anterior leads suggestive of a LAD lesion. He was treated with aspirin and heparin. Risks and benefits of emergency cardiac catheterization EXPLAINED Past Medical History Cardiovascular: HTN CENTRAL NERVOUS SYSTEM: Other (Mnire's disease) Past Surgical History Past Surgical History: Total hip replacement DM, Current or recent (<one month) smoker, HTN, HLP, family history of CAD, obesity. History of Present Illness History of Present Illness 05/07/20 Patient seen and examined Chart reviewed Discussed with RN O2 nasal canula Left ventricle systolic function is severely impaired. The Ejection Fraction is 20-25%. There is apical akinesis There is severe hypokinesis of the distal anterior and mid to distal septal busch. Troponin I: 209.36 EF: 20-35% Amiodarone drip Vitals Vitals Vital Signs Date Time Temp Pulse Resp B/P (MAP) Pulse Ox O2 Delivery O2 Flow Rate FiO2 05/09/20 02:50 97.7 56 18 100/58 (72) 97 Room Air 97.7 05/08/20 23:24 2.0 Physical Exam General: No acute distress Heart: Regular rate Lungs: Clear Abdomen: Normal bowel sounds Extremities: No cyanosis, Normal pulses Skin: No significant lesion Labs LABS Laboratory Tests Test 05/09/20 04:15 White Blood Count 9.1 x10^3/uL (4.0-11.0) Red Blood Count 3.86 x10^6/uL (4.30-5.70) Hemoglobin 12.5 g/dL (13.0-17.5) Hematocrit 35.5 % (39.0-53.0) Mean Corpuscular Volume 92 fL (79-100) Mean Corpuscular Hemoglobin 32 pg (25-35) Mean Corpuscular Hemoglobin Concent 35 g/dL (31-37) Red Cell Distribution Width 13.2 % (11.5-14.5) Platelet Count 152 x10^3/uL (140-400) Neutrophils (%) (Auto) 78 % (31-73) Lymphocytes (%) (Auto) 12 % (24-48) Monocytes (%) (Auto) 8 % (0-9) Eosinophils (%) (Auto) 2 % (0-3) Basophils (%) (Auto) 0 % (0-3) Neutrophils # (Auto) 7.1 x10^3/uL (1.8-7.7) Lymphocytes # (Auto) 1.1 x10^3/uL (1.0-4.8) Monocytes # (Auto) 0.7 x10^3/uL (0.0-1.1) Eosinophils # (Auto) 0.2 x10^3/uL (0.0-0.7) Basophils # (Auto) 0.0 x10^3/uL (0.0-0.2) Sodium Level 143 mmol/L (136-145) Potassium Level 3.6 mmol/L (3.5-5.1) Chloride Level 108 mmol/L (98-107) Carbon Dioxide Level 26 mmol/L (21-32) Anion Gap 9 (6-14) Blood Urea Nitrogen 10 mg/dL (8-26) Creatinine 1.4 mg/dL (0.7-1.3) Estimated GFR (Cockcroft-Gault) 50.9 BUN/Creatinine Ratio 7 (6-20) Glucose Level 116 mg/dL (70-99) Calcium Level 8.2 mg/dL (8.5-10.1) Total Bilirubin 1.0 mg/dL (0.2-1.0) Aspartate Amino Transf (AST/SGOT) 102 U/L (15-37) Alanine Aminotransferase (ALT/SGPT) 60 U/L (16-63) Alkaline Phosphatase 73 U/L (46-116) Total Protein 6.0 g/dL (6.4-8.2) Albumin 2.9 g/dL (3.4-5.0) Albumin/Globulin Ratio 0.9 (1.0-1.7) Assessment and Plan Assessmemt and Plan Problems Medical Problems: (1) STEMI (ST elevation myocardial infarction) Status: Acute Comment Review of Relevant I have reviewed the following items francisca (where applicable) has been applied. Labs Laboratory Tests Test 05/08/20 05:00 05/09/20 04:15 White Blood Count 10.0 x10^3/uL (4.0-11.0) 9.1 x10^3/uL (4.0-11.0) Red Blood Count 3.88 x10^6/uL (4.30-5.70) 3.86 x10^6/uL (4.30-5.70) Hemoglobin 12.8 g/dL (13.0-17.5) 12.5 g/dL (13.0-17.5) Hematocrit 36.1 % (39.0-53.0) 35.5 % (39.0-53.0) Mean Corpuscular Volume 93 fL (79-100) 92 fL (79-100) Mean Corpuscular Hemoglobin 33 pg (25-35) 32 pg (25-35) Mean Corpuscular Hemoglobin Concent 35 g/dL (31-37) 35 g/dL (31-37) Red Cell Distribution Width 13.0 % (11.5-14.5) 13.2 % (11.5-14.5) Platelet Count 148 x10^3/uL (140-400) 152 x10^3/uL (140-400) Neutrophils (%) (Auto) 80 % (31-73) 78 % (31-73) Lymphocytes (%) (Auto) 12 % (24-48) 12 % (24-48) Monocytes (%) (Auto) 8 % (0-9) 8 % (0-9) Eosinophils (%) (Auto) 1 % (0-3) 2 % (0-3) Basophils (%) (Auto) 0 % (0-3) 0 % (0-3) Neutrophils # (Auto) 8.0 x10^3/uL (1.8-7.7) 7.1 x10^3/uL (1.8-7.7) Lymphocytes # (Auto) 1.2 x10^3/uL (1.0-4.8) 1.1 x10^3/uL (1.0-4.8) Monocytes # (Auto) 0.7 x10^3/uL (0.0-1.1) 0.7 x10^3/uL (0.0-1.1) Eosinophils # (Auto) 0.1 x10^3/uL (0.0-0.7) 0.2 x10^3/uL (0.0-0.7) Basophils # (Auto) 0.0 x10^3/uL (0.0-0.2) 0.0 x10^3/uL (0.0-0.2) Heparin Anti-Xa Act, Unfractionated < 0.10 IU/mL (0.30-0.70) Sodium Level 142 mmol/L (136-145) 143 mmol/L (136-145) Potassium Level 3.7 mmol/L (3.5-5.1) 3.6 mmol/L (3.5-5.1) Chloride Level 107 mmol/L (98-107) 108 mmol/L (98-107) Carbon Dioxide Level 25 mmol/L (21-32) 26 mmol/L (21-32) Anion Gap 10 (6-14) 9 (6-14) Blood Urea Nitrogen 10 mg/dL (8-26) 10 mg/dL (8-26) Creatinine 1.3 mg/dL (0.7-1.3) 1.4 mg/dL (0.7-1.3) Estimated GFR (Cockcroft-Gault) 55.4 50.9 BUN/Creatinine Ratio 8 (6-20) 7 (6-20) Glucose Level 111 mg/dL (70-99) 116 mg/dL (70-99) Calcium Level 8.0 mg/dL (8.5-10.1) 8.2 mg/dL (8.5-10.1) Total Bilirubin 0.9 mg/dL (0.2-1.0) 1.0 mg/dL (0.2-1.0) Aspartate Amino Transf (AST/SGOT) 172 U/L (15-37) 102 U/L (15-37) Alanine Aminotransferase (ALT/SGPT) 75 U/L (16-63) 60 U/L (16-63) Alkaline Phosphatase 61 U/L (46-116) 73 U/L (46-116) Total Protein 5.8 g/dL (6.4-8.2) 6.0 g/dL (6.4-8.2) Albumin 2.9 g/dL (3.4-5.0) 2.9 g/dL (3.4-5.0) Albumin/Globulin Ratio 1.0 (1.0-1.7) 0.9 (1.0-1.7) Laboratory Tests Test 05/09/20 04:15 White Blood Count 9.1 x10^3/uL (4.0-11.0) Red Blood Count 3.86 x10^6/uL (4.30-5.70) Hemoglobin 12.5 g/dL (13.0-17.5) Hematocrit 35.5 % (39.0-53.0) Mean Corpuscular Volume 92 fL (79-100) Mean Corpuscular Hemoglobin 32 pg (25-35) Mean Corpuscular Hemoglobin Concent 35 g/dL (31-37) Red Cell Distribution Width 13.2 % (11.5-14.5) Platelet Count 152 x10^3/uL (140-400) Neutrophils (%) (Auto) 78 % (31-73) Lymphocytes (%) (Auto) 12 % (24-48) Monocytes (%) (Auto) 8 % (0-9) Eosinophils (%) (Auto) 2 % (0-3) Basophils (%) (Auto) 0 % (0-3) Neutrophils # (Auto) 7.1 x10^3/uL (1.8-7.7) Lymphocytes # (Auto) 1.1 x10^3/uL (1.0-4.8) Monocytes # (Auto) 0.7 x10^3/uL (0.0-1.1) Eosinophils # (Auto) 0.2 x10^3/uL (0.0-0.7) Basophils # (Auto) 0.0 x10^3/uL (0.0-0.2) Sodium Level 143 mmol/L (136-145) Potassium Level 3.6 mmol/L (3.5-5.1) Chloride Level 108 mmol/L (98-107) Carbon Dioxide Level 26 mmol/L (21-32) Anion Gap 9 (6-14) Blood Urea Nitrogen 10 mg/dL (8-26) Creatinine 1.4 mg/dL (0.7-1.3) Estimated GFR (Cockcroft-Gault) 50.9 BUN/Creatinine Ratio 7 (6-20) Glucose Level 116 mg/dL (70-99) Calcium Level 8.2 mg/dL (8.5-10.1) Total Bilirubin 1.0 mg/dL (0.2-1.0) Aspartate Amino Transf (AST/SGOT) 102 U/L (15-37) Alanine Aminotransferase (ALT/SGPT) 60 U/L (16-63) Alkaline Phosphatase 73 U/L (46-116) Total Protein 6.0 g/dL (6.4-8.2) Albumin 2.9 g/dL (3.4-5.0) Albumin/Globulin Ratio 0.9 (1.0-1.7) Medications Current Medications Ondansetron HCl (Zofran) 4 mg PRN Q8HRS PRN IV NAUSEA/VOMITING; Start 05/05/20 at 13:45; Stop 05/06/20 at 09:05; Status DC Iodixanol (Visipaque 320) 100 ml STK-MED ONCE .ROUTE ; Start 05/05/20 at 13:49; Stop 05/05/20 at 13:49; Status DC Fentanyl Citrate (Fentanyl 2ml Vial) 100 mcg STK-MED ONCE .ROUTE ; Start 05/05/20 at 13:49; Stop 05/05/20 at 13:49; Status DC Midazolam HCl (Versed) 2 mg STK-MED ONCE .ROUTE ; Start 05/05/20 at 13:50; Stop 05/05/20 at 13:50; Status DC Heparin Sodium (Porcine) (Heparin Sodium) 10,000 unit STK-MED ONCE .ROUTE ; Start 05/05/20 at 13:50; Stop 05/05/20 at 13:50; Status DC Bivalirudin (Angiomax) 250 mg STK-MED ONCE IV ; Start 05/05/20 at 13:59; Stop 05/05/20 at 13:59; Status DC Dopamine HCl/ Dextrose 250 ml @ As Directed STK-MED ONCE IV ; Start 05/05/20 at 14:02; Stop 05/05/20 at 14:02; Status DC Amiodarone HCl (Cordarone) 150 mg STK-MED ONCE .ROUTE ; Start 05/05/20 at 14:08; Stop 05/05/20 at 14:09; Status DC Ondansetron HCl (Zofran) 4 mg STK-MED ONCE .ROUTE ; Start 05/05/20 at 14:15; Stop 05/05/20 at 14:15; Status DC Heparin Sodium/ Sodium Chloride 500 ml @ As Directed STK-MED ONCE .ROUTE ; Start 05/05/20 at 14:16; Stop 05/05/20 at 14:17; Status DC Iodixanol (Visipaque 320) 100 ml STK-MED ONCE .ROUTE ; Start 05/05/20 at 14:20; Stop 05/05/20 at 14:20; Status DC Lidocaine HCl (Lidocaine 1% 20ml Vial) 20 ml STK-MED ONCE .ROUTE ; Start 05/05/20 at 14:21; Stop 05/05/20 at 14:21; Status DC Heparin Sodium/ Sodium Chloride (HEPARIN for ARTERIAL LINE FLUSH) 1,000 unit 1X ONCE IART Last administered on 05/05/20at 14:57; Start 05/05/20 at 14:30; Stop 05/05/20 at 14:49; Status DC Heparin Sodium/ Sodium Chloride (HEPARIN for ARTERIAL LINE FLUSH) 1,000 unit 1X ONCE IART Last administered on 05/05/20at 14:57; Start 05/05/20 at 14:30; Stop 05/05/20 at 14:49; Status DC Midazolam HCl (Versed) 1 mg 1X ONCE IV Last administered on 05/05/20at 15:00; Start 05/05/20 at 14:30; Stop 05/05/20 at 14:49; Status DC Fentanyl Citrate (Fentanyl 2ml Vial) 12.5 mcg 1X ONCE IV Last administered on 05/05/20at 15:00; Start 05/05/20 at 14:30; Stop 05/05/20 at 14:49; Status DC Iodixanol (Visipaque 320) 100 ml 1X ONCE IART Last administered on 05/05/20at 14:57; Start 05/05/20 at 14:30; Stop 05/05/20 at 14:49; Status DC Bivalirudin (Angiomax) 250 mg 1X ONCE IV Last administered on 05/05/20at 14:58; Start 05/05/20 at 14:30; Stop 05/05/20 at 14:49; Status DC Clopidogrel Bisulfate (Plavix) 600 mg 1X ONCE PO ; Start 05/05/20 at 14:30; Stop 05/05/20 at 15:05; Status DC Lidocaine HCl (Lidocaine 1% 20ml Vial) 18 ml 1X ONCE INJ Last administered on 05/05/20at 14:58; Start 05/05/20 at 14:30; Stop 05/05/20 at 14:49; Status DC Amiodarone HCl (Cordarone) 150 mg 1X ONCE IVP Last administered on 05/05/20at 14:59; Start 05/05/20 at 14:30; Stop 05/05/20 at 14:36; Status DC Amiodarone HCl 450 mg/Dextrose 259 ml @ 0 mls/hr CONT PRN IV SEE I/O RECORD Las t administered on 05/05/20at 22:45; Start 05/05/20 at 14:30; Stop 05/05/20 at 22:46; Status DC Ondansetron HCl (Zofran) 4 mg 1X ONCE IVP Last administered on 05/05/20at 14:59; Start 05/05/20 at 14:30; Stop 05/05/20 at 14:37; Status DC Heparin Sodium/ Dextrose 250 ml @ 10 mls/hr CONT PRN IV PER PROTOCOL Last administered on 05/07/20at 05:26; Start 05/05/20 at 14:30; Stop 05/07/20 at 09:41; Status DC Heparin Sodium (Porcine) (Heparin Sodium) 2,250 unit PRN Q6HRS PRN IV FOR UFH LEVEL LESS THAN 0.2 Last administered on 05/05/20at 19:42; Start 05/05/20 at 14:30; Stop 05/07/20 at 09:41; Status DC Heparin Sodium/ Sodium Chloride (HEPARIN for ARTERIAL LINE FLUSH) 1,000 unit 1X ONCE IART Last administered on 05/05/20at 14:57; Start 05/05/20 at 14:30; Stop 05/05/20 at 14:49; Status DC Dopamine HCl/ Dextrose 250 ml @ 17.006 mls/ hr 1X ONCE IV Last administered on 05/05/20at 14:06; Start 05/05/20 at 14:45; Stop 05/06/20 at 05:27; Status DC Heparin Sodium (Porcine) (Heparin Sodium) 4,000 unit 1X ONCE IV Last a dministered on 05/05/20at 13:37; Start 05/05/20 at 13:31; Stop 05/05/20 at 14:57; Status DC Morphine Sulfate (Morphine Sulfate) 4 mg 1X ONCE IV Last administered on 05/05/20at 13:38; Start 05/05/20 at 13:32; Stop 05/05/20 at 14:57; Status DC Ticagrelor (Brilinta) 90 mg STK-MED ONCE .ROUTE ; Start 05/05/20 at 14:46; Stop 05/05/20 at 14:47; Status DC Info (CONTRAST GIVEN -- Rx MONITORING) 1 each PRN DAILY PRN MC SEE COMMENTS; Start 05/05/20 at 15:00; Stop 05/07/20 at 14:59; Status DC Ticagrelor (Brilinta) 180 mg 1X ONCE PO Last administered on 05/05/20at 15:11; Start 05/05/20 at 15:15; Stop 05/05/20 at 15:16; Status DC Ticagrelor (Brilinta) 180 mg 1X ONCE PO Last administered on 05/05/20at 17:45; Start 05/05/20 at 15:15; Stop 05/05/20 at 15:16; Status DC Heparin Sodium/ Dextrose 250 ml @ As Directed STK-MED ONCE IV ; Start 05/05/20 at 15:08; Stop 05/05/20 at 15:08; Status DC Sodium Chloride (Normal Saline Flush) 3 ml QSHIFT PRN IV AFTER MEDS AND BLOOD DRAWS; Start 05/05/20 at 15:15; Status Cancel Sodium Chloride 1,000 ml @ 50 mls/hr Q20H IV Last administered on 05/06/20at 10:36; Start 05/05/20 at 15:09; Stop 05/06/20 at 10:41; Status DC Aspirin (Ecotrin) 81 mg DAILYWBKFT PO Last administered on 05/08/20at 08:03; Start 05/06/20 at 08:00 Metoprolol Tartrate (Lopressor) 12.5 mg BID PO Last administered on 05/05/20at 20:51; Start 05/05/20 at 21:00; Stop 05/06/20 at 10:56; Status DC Lisinopril (Prinivil) 5 mg DAILY PO ; Start 05/06/20 at 09:00; Stop 05/06/20 at 08:59; Status DC Atorvastatin Calcium (Lipitor) 40 mg QHS PO Last administered on 05/08/20at 21:18; Start 05/05/20 at 21:00 Nitroglycerin (Nitrostat) 0.4 mg PRN Q5MIN PRN SL CHEST PAIN; Start 05/05/20 at 15:15 Atropine Sulfate (ATROPINE 0.5mg SYRINGE) 0.5 mg PRN 1X PRN IV BRADYCARDIA; Start 05/05/20 at 15:15 Oxycodone/ Acetaminophen (Percocet 5/325) 2 tab PRN Q4HRS PRN PO MODERATE PAIN, SEVERE PAIN; Start 05/05/20 at 15:15 Acetaminophen (Tylenol) 650 mg PRN Q6HRS PRN PO Headaches, Temp > 101.5'; Start 05/05/20 at 17:00 Lorazepam (Ativan Inj) 0.5 mg PRN Q6HRS PRN IVP ANXIETY / AGITATION; Start 05/05/20 at 17:00 Ondansetron HCl (Zofran) 4 mg PRN Q6HRS PRN IVP NAUSEA/VOMITING Last administered on 05/05/20at 21:12; Start 05/05/20 at 17:00 Sodium Chloride (Normal Saline Flush) 3 ml QSHIFT PRN IV AFTER MEDS AND BLOOD DRAWS; Start 05/05/20 at 17:00 Acetaminophen/ Hydrocodone Bitart (Lortab 5/325) 1 tab PRN Q4HRS PRN PO MILD PAIN 1-3 Last administered on 05/08/20at 23:24; Start 05/05/20 at 17:00 Morphine Sulfate (Morphine Sulfate) 1 mg PRN Q1HR PRN IV PAIN Last administered on 05/07/20at 15:32; Start 05/05/20 at 17:00 Senna/Docusate Sodium (Senna Plus) 1 tab BID PO Last administered on 05/08/20at 21:19; Start 05/05/20 at 21:00 Lactulose (Lactulose) 20 gm PRN Q12HR PRN PO CONSTIPATION; Start 05/05/20 at 17:00 Dopamine HCl/ Dextrose 250 ml @ 16.988 mls/ hr CONT PRN IV SEE I/O RECORD Last administered on 05/09/20at 05:45; Start 05/05/20 at 20:00 Alprazolam (Xanax) 0.25 mg PRN Q6HRS PRN PO ANXIETY / AGITATION Last administered on 05/07/20at 07:55; Start 05/05/20 at 20:45 Cyclobenzaprine HCl (Flexeril) 10 mg PRN DAILY PRN PO MUSCLE SPASMS Last administered on 05/08/20at 21:23; Start 05/05/20 at 20:45 Ticagrelor (Brilinta) 90 mg BID PO Last administered on 05/08/20at 21:19; Start 05/06/20 at 09:00 Lisinopril (Prinivil) 5 mg DAILY@1300 PO ; Start 05/06/20 at 13:00; Stop 05/06/20 at 10:56; Status DC Lisinopril (Prinivil) 5 mg DAILY@1300 PO ; Start 05/08/20 at 13:00 Metoprolol Tartrate (Lopressor) 12.5 mg BID PO Last administered on 05/08/20at 21:19; Start 05/06/20 at 11:00 Amiodarone HCl 450 mg/Dextrose 259 ml @ 0 mls/hr CONT PRN IV SEE I/O RECORD Last administered on 05/07/20at 08:06; Start 05/06/20 at 15:45; Stop 05/07/20 at 10:49; Status DC Sodium Chloride 1,000 ml @ 100 mls/hr Q10H IV Last administered on 05/08/20at 23:17; Start 05/06/20 at 19:00 Info (Anti-Coagulation Monitoring By Pharmacy) 1 each PRN DAILY PRN MC SEE COMMENTS; Start 05/07/20 at 09:00; Status Cancel Clopidogrel Bisulfate (Plavix) 600 mg STK-MED ONCE .ROUTE ; Start 05/05/20 at 15:00; Stop 05/07/20 at 09:06; Status DC Famotidine (Pepcid) 20 mg BID PO Last administered on 05/08/20at 21:21; Start 05/07/20 at 21:00 Magnesium Sulfate 50 ml @ 25 mls/hr 1X ONCE IV Last administered on 05/07/20at 10:50; Start 05/07/20 at 10:00; Stop 05/07/20 at 11:59; Status DC Lidocaine HCl (Xylocaine-Mpf 1% 2ml Vial) 2 ml STK-MED ONCE .ROUTE ; Start 05/07/20 at 13:02; Stop 05/07/20 at 13:02; Status DC Lidocaine HCl (Xylocaine 1% Pf 30ml Vial) 30 ml STK-MED ONCE .ROUTE ; Start 05/07/20 at 13:03; Stop 05/07/20 at 13:04; Status DC Sertraline HCl (Zoloft) 50 mg HS PO Last administered on 05/08/20at 21:19; Start 05/08/20 at 21:00 Tamsulosin HCl (Flomax) 0.4 mg HS PO Last administered on 05/08/20at 21:19; Start 05/08/20 at 21:00 Active Scripts Active Reported D3 + K2 Dots 1,000 Units Tab (Vitamin D3/Vitamin K2) 1 Each Tab.rapdis 1 Tab PO HS 30 Days Multi Vitamin Daily (Multivitamin) 1 Each Tablet 1 Tab PO HS 30 Days Pepcid (Famotidine) 20 Mg Tablet 20 Mg PO BID Zoloft (Sertraline Hcl) 50 Mg Tablet 1 Tab PO HS Rapaflo (Silodosin) 8 Mg Capsule 1 Cap PO HS Simvastatin 40 Mg Tablet 1 Tab PO QHS Vitals/I & O Vital Sign - Last 24 Hours 05/08/20 05/08/20 05/08/20 05/08/20 08:10 08:50 09:50 10:05 Pulse 52 54 52 Resp 30 24 24 B/P (MAP) 107/65 (79) 165/88 (113) 104/60 (75) Pulse Ox 98 98 100 O2 Delivery Room Air Room Air Room Air Room Air 05/08/20 05/08/20 05/08/20 05/08/20 11:12 12:10 13:00 15:00 Temp 98.3 98.2 98.5 98.3 98.2 98.5 Pulse 57 52 52 59 Resp 18 18 18 B/P (MAP) 96/61 (73) 93/54 (67) 93/54 97/56 (70) Pulse Ox 100 99 98 O2 Delivery Room Air Room Air Room Air 05/08/20 05/08/20 05/08/20 05/08/20 19:15 20:00 21:19 22:45 Temp 98.8 99.1 98.8 99.1 Pulse 63 64 66 Resp 18 18 B/P (MAP) 98/56 (70) 116/66 89/55 (66) Pulse Ox 96 95 O2 Delivery Room Air Room Air Room Air 05/08/20 05/09/20 05/09/20 23:24 00:24 02:50 Temp 97.7 97.7 Pulse 56 Resp 18 16 18 B/P (MAP) 100/58 (72) Pulse Ox 95 97 97 O2 Delivery Room Air Room Air Room Air O2 Flow Rate 2.0 Intake and Output 05/08/20 05/08/20 05/09/20 15:00 23:00 07:00 Intake Total 280 ml 800 ml 500 ml Output Total 350 ml 1550 ml Balance 280 ml 450 ml -1050 ml Justicifation of Admission Dx: Justifications for Admission: Justification of Admission Dx: Yes GA: Acute STEMI TERRA SMITH MD May 09, 2020 08:01
[2020-05-09] MEDS: ASPIRIN ENTERIC COATED 81 MG TABLET.DR. PO SCH (08:42)
[2020-05-09] MEDS: SENNOSIDES/DOCUSATE 8.6/50MG TABLET. PO SCH ×2 (08:42→20:49)
[2020-05-09] MEDS: TICAGRELOR 90 MG TABLET. PO SCH ×2 (08:42→20:42)
[2020-05-09] MEDS: FAMOTIDINE 20 MG TABLET. PO SCH ×2 (08:42→20:41)
[2020-05-09] MEDS: METOPROLOL TART IMMED RELEASE 25 MG TABLET. PO SCH ×2 (08:43→20:42)
[2020-05-09] MEDS: IV NORMAL SALINE 1000ML BAG 1,000 ML IV SCH (08:43)
--- NOTE | 2020-05-09 12:47 | PDOC ---
PROGRESS NOTES Subjective Subjective Patient denied any chest pain or dyspnea Objective Objective Vital Signs Date Time Temp Pulse Resp B/P (MAP) Pulse Ox O2 Delivery O2 Flow Rate FiO2 05/09/20 10:57 98.0 49 20 101/58 (72) 97 Room Air 98.0 05/09/20 08:00 2.0 Intake and Output 05/09/20 07:00 Intake Total 1580 ml Output Total 1900 ml Balance -320 ml Intake Oral 1380 ml Other 200 ml Output Urine Total 1900 ml # Voids 3 Physical Exam Abdomen: Normal bowel sounds Heart: Regular rate Extremities: Other (1+ edema) General: No acute distress HEENT: Atraumatic Lungs: Other (Slightly decreased breath sounds) Skin: No significant lesion Assessment Assessment 1. Acute anterior wall STEMI s/p PCI/ERICKA to LAD. Patient has residual 90% stenosis involving RCA that is being planned to be intervened upon in the future. He is presently stable and chest pain-free. Telemetry did not show any significant arrhythmias. Continue current medications including dual antiplatelet therapy. 2. Acute combined systolic and diastolic heart failure, cardiogenic shock with 2D echo showing LVEF 20 to 25%. IABP removed 05/07. BP 80's systolic despite being on dopamine. Patient appears to be slightly decompensated clinically. Decrease IVF, change dopamine to dobutamine gtt and give 1 dose of Lasix IV. Lisinopril held secondary to low blood pressure. 3. Hyperlipidemia: Continue statin therapy Plan Plan of Care Problems Medical Problems: (1) STEMI (ST elevation myocardial infarction) Status: Acute Comment Review of Relevant I have reviewed the following items francisca (where applicable) has been applied. Labs Laboratory Tests Test 05/09/20 04:15 White Blood Count 9.1 x10^3/uL (4.0-11.0) Red Blood Count 3.86 x10^6/uL (4.30-5.70) Hemoglobin 12.5 g/dL (13.0-17.5) Hematocrit 35.5 % (39.0-53.0) Mean Corpuscular Volume 92 fL (79-100) Mean Corpuscular Hemoglobin 32 pg (25-35) Mean Corpuscular Hemoglobin Concent 35 g/dL (31-37) Red Cell Distribution Width 13.2 % (11.5-14.5) Platelet Count 152 x10^3/uL (140-400) Neutrophils (%) (Auto) 78 % (31-73) Lymphocytes (%) (Auto) 12 % (24-48) Monocytes (%) (Auto) 8 % (0-9) Eosinophils (%) (Auto) 2 % (0-3) Basophils (%) (Auto) 0 % (0-3) Neutrophils # (Auto) 7.1 x10^3/uL (1.8-7.7) Lymphocytes # (Auto) 1.1 x10^3/uL (1.0-4.8) Monocytes # (Auto) 0.7 x10^3/uL (0.0-1.1) Eosinophils # (Auto) 0.2 x10^3/uL (0.0-0.7) Basophils # (Auto) 0.0 x10^3/uL (0.0-0.2) Sodium Level 143 mmol/L (136-145) Potassium Level 3.6 mmol/L (3.5-5.1) Chloride Level 108 mmol/L (98-107) Carbon Dioxide Level 26 mmol/L (21-32) Anion Gap 9 (6-14) Blood Urea Nitrogen 10 mg/dL (8-26) Creatinine 1.4 mg/dL (0.7-1.3) Estimated GFR (Cockcroft-Gault) 50.9 BUN/Creatinine Ratio 7 (6-20) Glucose Level 116 mg/dL (70-99) Calcium Level 8.2 mg/dL (8.5-10.1) Total Bilirubin 1.0 mg/dL (0.2-1.0) Aspartate Amino Transf (AST/SGOT) 102 U/L (15-37) Alanine Aminotransferase (ALT/SGPT) 60 U/L (16-63) Alkaline Phosphatase 73 U/L (46-116) Total Protein 6.0 g/dL (6.4-8.2) Albumin 2.9 g/dL (3.4-5.0) Albumin/Globulin Ratio 0.9 (1.0-1.7) Medications Current Medications Lisinopril (Prinivil) 5 mg DAILY@1300 PO ; Start 05/08/20 at 13:00 Sertraline HCl (Zoloft) 50 mg HS PO Last administered on 05/08/20at 21:19; Start 05/08/20 at 21:00 Tamsulosin HCl (Flomax) 0.4 mg HS PO Last administered on 05/08/20at 21:19; Start 05/08/20 at 21:00 Vitals/I & O Vital Sign - Last 24 Hours 05/08/20 05/08/20 05/08/20 05/08/20 13:00 15:00 19:15 20:00 Temp 98.5 98.8 98.5 98.8 Pulse 52 59 63 Resp 18 18 B/P (MAP) 93/54 97/56 (70) 98/56 (70) Pulse Ox 98 96 O2 Delivery Room Air Room Air Room Air 05/08/20 05/08/20 05/08/20 05/09/20 21:19 22:45 23:24 00:24 Temp 99.1 99.1 Pulse 64 66 Resp 18 18 16 B/P (MAP) 116/66 89/55 (66) Pulse Ox 95 95 97 O2 Delivery Room Air Room Air Room Air O2 Flow Rate 2.0 05/09/20 05/09/20 05/09/20 05/09/20 02:50 07:00 08:00 08:42 Temp 97.7 98.5 97.7 98.5 Pulse 56 61 Resp 18 20 18 B/P (MAP) 100/58 (72) 93/55 (68) Pulse Ox 97 98 O2 Delivery Room Air Room Air Room Air O2 Flow Rate 2.0 05/09/20 05/09/20 08:43 10:57 Temp 98.0 98.0 Pulse 61 49 Resp 20 B/P (MAP) 93/55 101/58 (72) Pulse Ox 97 O2 Delivery Room Air l Intake and Output 05/08/20 05/08/20 05/09/20 15:00 23:00 07:00 Intake Total 280 ml 800 ml 500 ml Output Total 350 ml 1550 ml Balance 280 ml 450 ml -1050 ml LATOYA MULLEN MD May 09, 2020 12:47
[2020-05-09] MEDS: LISINOPRIL 5 MG TABLET. PO SCH (13:00)
[2020-05-09] MEDS ORDERED: FUROSEMIDE 40 MG/4 ML VIAL. IVP ONE (14:30)
[2020-05-09] MEDS: ATORVASTATIN CALCIUM 20 MG TABLET PO SCH (20:41)
[2020-05-09] MEDS: traZODone 50 MG TABLET. PO PRN (20:42)
[2020-05-09] MEDS: SERTRALINE 50 MG TABLET. PO SCH (20:42)
[2020-05-09] MEDS: TAMSULOSIN 0.4 MG CAP.ER.24H. PO SCH (20:49)
[2020-05-10] VITALS (28 sets, daily range): BP systolic 99–130; BP diastolic 53–71
[2020-05-10 04:40] LABS: HEMATOCRIT 33.8 % (39.0-53.0); RED BLOOD COUNT 3.68 x10^6/uL (4.30-5.70); RED CELL DISTRIBUTION WIDTH 13.3 % (11.5-14.5)
[2020-05-10] MEDS: IV NORMAL SALINE 1000ML BAG 1,000 ML IV SCH (08:03)
[2020-05-10] MEDS: TICAGRELOR 90 MG TABLET. PO SCH ×2 (08:05→21:04)
[2020-05-10] MEDS: ASPIRIN ENTERIC COATED 81 MG TABLET.DR. PO SCH (08:05)
[2020-05-10] MEDS: METOPROLOL TART IMMED RELEASE 25 MG TABLET. PO SCH ×2 (08:06→21:06)
[2020-05-10] MEDS: SENNOSIDES/DOCUSATE 8.6/50MG TABLET. PO SCH ×2 (09:00→21:04)
[2020-05-10] MEDS: FAMOTIDINE 20 MG TABLET. PO SCH ×2 (09:00→21:05)
[2020-05-10] MEDS ORDERED: IODIXANOL 320 MG/ML 100 ML VIAL. ONE (12:07)
[2020-05-10] MEDS ORDERED: LIDOCAINE 1% PF 2 ML VIAL. ONE (12:07)
[2020-05-10] MEDS ORDERED: VERAPAMIL 5 MG/2 ML VIAL. ONE (12:33)
[2020-05-10] MEDS ORDERED: fentaNYL PF VIAL 100 MCG/2 ML VIAL ONE (12:33)
[2020-05-10] MEDS ORDERED: NITROGLYCERIN 200 MCG/2 ML SYRINGE FOR CATH/VASC LAB. ONE ×2 (12:33→13:10)
[2020-05-10] MEDS ORDERED: MIDAZOLAM HCL/PF 2 MG/2 ML VIAL. ONE (12:33)
[2020-05-10] MEDS ORDERED: HEPARIN for IV BOLUS 10,000 UNIT/10 ML VIAL. ONE (12:33)
[2020-05-10] MEDS ORDERED: BIVALIRUDIN 250 MG VIAL. IV ONE ×2 (12:52→13:15)
[2020-05-10] MEDS ORDERED: LIDOCAINE 1% Multi-Dose 20 ML VIAL. ONE (12:52)
[2020-05-10] MEDS ORDERED: NITROGLYCERIN 200 MCG/2 ML SYRINGE FOR CATH/VASC LAB. IART ONE ×2 (13:00→13:15)
[2020-05-10] MEDS: LISINOPRIL 5 MG TABLET. PO SCH (13:00)
[2020-05-10] MEDS ORDERED: HEPARIN for IV BOLUS 10,000 UNIT/10 ML VIAL. IART ONE (13:00)
[2020-05-10] MEDS ORDERED: IODIXANOL 320 MG/ML 100 ML VIAL. IART ONE (13:00)
[2020-05-10] MEDS ORDERED: LIDOCAINE 1% PF 2 ML VIAL. INJ ONE (13:00)
[2020-05-10] MEDS ORDERED: LIDOCAINE 1% Multi-Dose 20 ML VIAL. INJ ONE (13:00)
[2020-05-10] MEDS ORDERED: VERAPAMIL 5 MG/2 ML VIAL. IART ONE (13:00)
[2020-05-10] MEDS ORDERED: MIDAZOLAM HCL/PF 2 MG/2 ML VIAL. IV ONE (13:00)
[2020-05-10] MEDS ORDERED: fentaNYL PF VIAL 100 MCG/2 ML VIAL IV ONE (13:00)
--- NOTE | 2020-05-10 13:26 | PDOC ---
MODERATE SEDATION ASSESSMENT RISKS/ALTERNATIVES Risks/Alternatives Risks and alternatives of this type of sedation and procedure discussed with: RISK/ALTERNATIVES: Patient H & P ON CHART H & P H & P on chart and reviewed for co-morbid conditions and appropriate labs. H&P ON CHART: Yes STATUS PREG STATUS ASSESSED: N/A MEDS/ALLERGIES REVIEWED Meds/Allergies Reviewed Medications and Allergies including time and route of recently administered narcotics and sedatives. MEDS/ALLERGIES REVIEWED: Yes ASA RATING ASA RATING: III AIRWAY ASSESSMENT Airway Assessment Airway patency, oral function limitations, presence of caps, crowns, dentures, partials, and ability to extend neck assessed. AIRWAY ASSESSMENT: Yes MALLAMPATI SCORE MALLAMPATI SCORE: II PRE-SEDATION ASSESSMENT PRE-SEDATION ASSESSMENT: Yes LATOYA MULLEN MD May 10, 2020 13:25
--- NOTE | 2020-05-10 13:35 | NUR ---
SS following up with discharge planning. SS reviewed pt chart and discussed with pt RN. Pt currently on room air. Pt having heart cath today. SS will continue to follow for discharge planning.
--- NOTE | 2020-05-10 13:44 | CARD ---
MR#: [id number] Date of Study: 05/10/2020 Ordering Physician: LATOYA KULKARNI, Referring Physician: LATOYA KULKARNI, Tech: Tmoa Parada APPROVED REPORT Technologist: Toma Parada Nurse: Christiane Montalvo Procedure(s) performed: Selective coronary angiography and successful PCI/drug-eluting stent placemen t to the right coronary artery via right transradial approach fl time: 8.0 mins dose: 58 gycm2 contrast: 74 ml moderate sedation: 45 MINUTES HISTORY : previous CHF. INDICATION The indication(s) include : unstable angina , 64-year-old male [facility] cardiogenic [facility] 05/05/2020. He had residual 90% stenosis of the right alvarenga ry artery. Since he was having difficulty weaning off pressors and developing acute on chronic systol ic heart failure, we decided to proceed with PCI/ERICKA to RCA this admission.. [facility] Clinical Frailty Scale [facility] Clinical Frailty Scale: Managing Well Heart Failure Heart Failure: Yes If Yes, Newly Diagnosed: Yes If Yes, HF Type: Systolic If Yes, NYHA Class: Class III PROCEDURE NARRATIVE After explaining the risks, benefits and alternative options, informed consent was obtained from ric ent. Patient was brought to the cardiac [facility] and his right wrist was prepped and draped in the u sual fashion after confirming a positive modified Saeid's test. Arterial access was obtained in the right radial artery and a 6 Occitan sheath was inserted. Since he had difficulty with peripheral IV a ccess, we placed a 4 Occitan sheath in the right common femoral vein to administer IV medications. 6 Occitan JL 3.5 was used to perform selective angiography of the left coronary artery. This showed pat ent recently placed stent in the left anterior descending artery and no significant stenosis seen lef t circumflex artery. A 6 Occitan JR4 guide catheter was then used to selectively engage the right coronary artery and angio graphy was performed. This confirmed the previously described 90 to 95% stenosis involving the midse gment. This lesion was crossed with a 0.014 inch NewHound pro-water guidewire. This was predilated wit h a 3.0 x 15 mm Klipfolio emerge balloon following which this was successfully treated with a 3.5 x 38 mm resolute Ramez drug-eluting stent. Follow-up angiography showed resolution of the stenos is to 0% with FRANCO-3 distal flow. Patient tolerated the procedure well. Hemostasis was achieved usi ng TR band. There were no immediate complications. FRANCO Flow FRANCO Flow (Pre-Intervention): FRANCO-2 FRANCO Flow (Post-Intervention): FRANCO-3 Conclusion 1. 90 to 95% stenosis involving the right coronary artery. The recently placed stent in LAD was pat ent 2. Successful PCI/drug-eluting stent placement to the right coronary artery. Recommendations 1. Aspirin 81 mg daily 2. Ticagrelor 90 mg twice daily for preferably 1 year 3. Cardiovascular risk factor modification and cardiac rehabilitation referral 4. Consider LifeVest upon DC for severe ischemic cardiomyopathy and repeat 2D echo in 3 months to ev aluate the need for AICD implantation. Signed by : Latoya Kulkarni, Electronically Approved : 05/10/2020 13:44:05
[2020-05-10] MEDS ORDERED: FUROSEMIDE 40 MG/4 ML VIAL. IVP ONE (13:45)
[2020-05-10] MEDS ORDERED: CONTRAST GIVEN. MC PRN (13:45)
--- NOTE | 2020-05-10 14:50 | PDOC ---
[facility] PROGRESS NOTE Chief Complaint Chief Complaint Acute STEMI IE, ST elevated myocardial infarction secondary to a proximal occlusion of the LAD. Successful stenting of the LAD lesion restoring flow with 0% residual lesion. Greater than 90% mid RCA pending second heart cath today TOBACCO ABUSE DISORDER Successful placement of an aortic balloon pump. Left ventricle systolic function is severely impaired. The Ejection Fraction is 20-25%. There is apical akinesis There is severe hypokinesis of the distal anterior and mid to distal septal busch. balloon pump tip is identified at the proximal aspect of the descending thoracic aorta near junction with aortic arch. No focal airspace consolidation or pulmonary edema. Diabetes type 2 Hypertension Dyslipidemia History of Present Illness Reason for Visit: The patient is a 64-year-old male who developed chest pain earlier today after mowing his lawn. It was severe and he rated it 10 out of 10. It is associated by mild shortness of breath. When it did not resolve for 45 to 60 minutes he called paramedics. EKG by the paramedics suggested an anterior ST elevated myocardial infarction and a STEMI protocol was activated. The patient was met in the emergency room when he arrived. He continues to be in moderate distress. Repeat EKG confirmed ST elevation in the anterior leads suggestive of a LAD lesion. He was treated with aspirin and heparin. Risks and benefits of emergency cardi ac catheterization EXPLAINED Past Medical History Cardiovascular: HTN CENTRAL NERVOUS SYSTEM: Other (Mnire's disease) Past Surgical History Past Surgical History: Total hip replacement DM, Current or recent (<one month) smoker, HTN, HLP, family history of CAD, obesity. History of Present Illness History of Present Illness 05/10/2020 Patient seen and examined bedside today. Patient is chest pain-free. Patient is waiting for repeat cath today. Tolerating diet yesterday. Ambulating without assistance 05/07/20 Patient seen and examined Chart reviewed Discussed with RN O2 nasal canula Left ventricle systolic function is severely impaired. The Ejection Fraction is 20-25%. There is apical akinesis There is severe hypokinesis of the distal anterior and mid to distal septal busch. Troponin I: 209.36 EF: 20-35% Amiodarone drip Vitals/I&O Vitals/I&O: Vital Signs Date Time Temp Pulse Resp B/P (MAP) Pulse Ox O2 Delivery O2 Flow Rate FiO2 05/10/20 14:29 98.2 69 18 118/62 (80) 99 Room Air 98.2 05/10/20 13:00 2.0 I & O 05/09/20 05/09/20 05/10/20 15:00 23:00 07:00 Intake Total 300 ml 200 ml Output Total 550 ml 1900 ml 300 ml Balance -250 ml -1900 ml -100 ml Physical Exam General: No acute distress Heart: Regular rate Lungs: Clear Abdomen: Normal bowel sounds Extremities: Other (1+ edema) Skin: No significant lesion Labs Labs: Laboratory Tests Test 05/10/20 03:35 White Blood Count 8.0 x10^3/uL (4.0-11.0) Red Blood Count 3.68 x10^6/uL (4.30-5.70) Hemoglobin 12.0 g/dL (13.0-17.5) Hematocrit 33.8 % (39.0-53.0) Mean Corpuscular Volume 92 fL (79-100) Mean Corpuscular Hemoglobin 33 pg (25-35) Mean Corpuscular Hemoglobin Concent 35 g/dL (31-37) Red Cell Distribution Width 13.3 % (11.5-14.5) Platelet Count 153 x10^3/uL (140-400) Review of Systems Review of Systems: CONSTITUIONAL: Denies weight loss, fever and chills. HEENT: Denies changes in vision and hearing. RESPIRATORY: Denies SOB and cough. CV: Denies palpitations and CP. GI: Denies abdominal pain, nausea, vomiting and diarrhea. : Denies dysuria and urinary frequency. MSK: Denies myalgia and joint pain. SKIN: Denies rash and pruritus. NEUROLOGICAL: Denies headache and syncope. PSYCHIATRIC: Denies recent changes in mood. Denies anxiety and depression. Assessment and Plan Assessmemt and Plan Problems Medical Problems: (1) STEMI (ST elevation myocardial infarction) Status: Acute Comment Review of Relevant I have reviewed the following items francisca (where applicable) has been applied. Medications: Current Medications Medications (Trade) Dose Ordered Sig/Akin Route PRN Reason Start Time Stop Time Status Last Admin Dose Admin Trazodone HCl (Desyrel) 50 mg PRN QHS PRN PO INSOMNIA 05/09/20 19:15 05/09/20 20:42 Nitroglycerin (Nitroglycerin) 200 mcg 1X ONCE IART 05/10/20 13:00 05/10/20 13:29 DC 05/10/20 13:00 Verapamil HCl (Verapamil) 2.5 mg 1X ONCE IART 05/10/20 13:00 05/10/20 13:36 DC 05/10/20 13:00 Heparin Sodium (Porcine) (Heparin Sodium) 2,500 unit 1X ONCE IART 05/10/20 13:00 05/10/20 13:36 DC 05/10/20 13:00 Heparin Sodium/ Sodium Chloride (HEPARIN for ARTERIAL LINE FLUSH) 1,000 unit 1X ONCE IART 05/10/20 13:00 05/10/20 13:36 DC 05/10/20 13:00 Heparin Sodium/ Sodium Chloride (HEPARIN for ARTERIAL LINE FLUSH) 1,000 unit 1X ONCE IART 05/10/20 13:00 05/10/20 13:36 DC 05/10/20 13:00 Midazolam HCl (Versed) 2 mg 1X ONCE IV 05/10/20 13:00 05/10/20 13:36 DC 05/10/20 13:00 Fentanyl Citrate (Fentanyl 2ml Vial) 100 mcg 1X ONCE IV 05/10/20 13:00 05/10/20 13:36 DC 05/10/20 13:00 Iodixanol (Visipaque 320) 100 ml 1X ONCE IART 05/10/20 13:00 05/10/20 13:36 DC 05/10/20 13:00 Lidocaine HCl (Lidocaine 1% 20ml Vial) 20 ml 1X ONCE INJ 05/10/20 13:00 05/10/20 13:36 DC 05/10/20 13:00 Lidocaine HCl (Xylocaine-Mpf 1% 2ml Vial) 2 ml 1X ONCE INJ 05/10/20 13:00 05/10/20 13:36 DC 05/10/20 13:00 Bivalirudin (Angiomax) 250 mg 1X ONCE IV 05/10/20 13:15 05/10/20 13:36 DC 05/10/20 13:15 Nitroglycerin (Nitroglycerin) 200 mcg 1X ONCE IART 05/10/20 13:15 05/10/20 13:36 DC 05/10/20 13:15 Justicifation of Admission Dx: Justifications for Admission: Justification of Admission Dx: Yes [place]: Acute STEMI MARCUS VELEZ MD May 10, 2020 14:50
[2020-05-10] MEDS: TAMSULOSIN 0.4 MG CAP.ER.24H. PO SCH (21:03)
[2020-05-10] MEDS: ALPRAZolam 0.25 MG TABLET PO PRN (21:04)
[2020-05-10] MEDS: SERTRALINE 50 MG TABLET. PO SCH (21:04)
[2020-05-10] MEDS: traZODone 50 MG TABLET. PO PRN (21:08)
[2020-05-10] MEDS: ATORVASTATIN CALCIUM 20 MG TABLET PO SCH (23:51)
[2020-05-11] VITALS (19 sets, daily range): BP systolic 88–129; BP diastolic 51–74
--- NOTE | 2020-05-11 07:00 | NUR ---
Patient's BP 88/41, this RN went into room to recheck BP & found that the patient's dobutamine drip & normal saline was completely off. Unsure of what time it had turned off during the shift engineer. Drip & fluid restarted. Dr. Kumar called & notified. Patient's IV then started leaking & a new one was restarted. Patient's BP better at 96/58 shortly after this & has continue to improve after restarting everything. Will continue to monitor.
[2020-05-11] MEDS: IV NORMAL SALINE 1000ML BAG 1,000 ML IV SCH ×2 (07:30→21:53)
[2020-05-11] MEDS: SENNOSIDES/DOCUSATE 8.6/50MG TABLET. PO SCH ×2 (09:00→21:47)
[2020-05-11] MEDS: TICAGRELOR 90 MG TABLET. PO SCH ×2 (09:32→21:45)
[2020-05-11] MEDS: FUROSEMIDE 20 MG TABLET PO SCH (09:32)
[2020-05-11] MEDS: FAMOTIDINE 20 MG TABLET. PO SCH ×2 (09:32→21:46)
[2020-05-11] MEDS: ASPIRIN ENTERIC COATED 81 MG TABLET.DR. PO SCH (09:33)
[2020-05-11] MEDS: METOPROLOL TART IMMED RELEASE 25 MG TABLET. PO SCH ×2 (09:34→21:49)
--- NOTE | 2020-05-11 11:26 | NUR ---
SS following up with discharge planning. SS reviewed pt chart and discussed with pt RN. Pt is currently on room air. Pt on Dobutamine drip. Pt had heart cath on 05/10/2020. Discharge plan is to home when ready. SS will continue to follow for discharge planning.
--- NOTE | 2020-05-11 11:34 | EKG ---
[facility] [address] [place] [address] Test Date: 2020-05-05 Test Time: 13:31:52 Pat Name: JEANA ARSHAD Department: Room: 246 1 Gender: M Taper Machine: : [id number] Requested By: ROCIO ORELLANA Order Number: [id number] Reading MD: Measurements Intervals [place] Rate: 73 P: 56 MN: 146 QRS: 28 QRSD: 90 T: 13 QT: 422 QTc: 469 Interpretive Statements SINUS RHYTHM INTERPOLATED VENTRICULAR PREMATURE COMPLEX(ES) LOW LIMB LEAD VOLTAGE QRS(T) CONTOUR ABNORMALITY CONSISTENT WITH ANTEROLATERAL INFARCT POSSIBLY RECENT ST-T ELEVATION, CONSIDER ACUTE ANTERIOR INFARCT ABNORMAL ECG RI6.02 No previous ECG available for comparison
[2020-05-11] MEDS: LISINOPRIL 5 MG TABLET. PO SCH (13:00)
--- NOTE | 2020-05-11 13:01 | PDOC ---
HELLEN MARIA EVALUATION ADVISOR 05/11/20 1301: CARDIO Progress Notes Date and Time Date of Service 05/11/2020 Time of Evaluation 1250 Subjective Subjective: No Chest Pain, No shortness of breath, No Palpitations Vitals Vitals Vital Signs Date Time Temp Pulse Resp B/P (MAP) Pulse Ox O2 Delivery O2 Flow Rate FiO2 05/11/20 10:28 98.1 72 16 129/70 (89) 99 Room Air 98.1 05/10/20 13:00 2.0 Weight Weight [ ] Input and Output Intake and Output Intake and Output 05/11/20 07:00 Intake Total 480 ml Output Total 3300 ml Balance -2820 ml Intake Oral 480 ml Output Urine Total 3300 ml Physical Exam HEENT: Neck Supple W Full Motion Chest: Symmetric LUNGS: Other (diminished bases) Heart: RRR (SR) Abdomen: Soft N/T Extremities: No Edema, No Calf Tenderness Neurology: alert, oriented, follow commands Other Exams right groin arteriotomy site intact, and right radial arteriotomy site intact, no swelling/erythema or hematoma on both sites, neurovascular status to bilateral LE and right hand intact. Assessment Assessment 1. Anterior STEMI: S/P PCI/ERICKA to LAD and staged PCI/ERICKA to RCA 2. Severe ICM: EF at 20% 3. HLP 4. Transaminitis: due to cardiogenic shock. LFTs much better 5. Cardiogenic shock: much improved BP a low end 6. Tobaccoism 7. Mild AMBER 8. Reperfusion arrhythmias: NSVTs. stable Recommendations 1. ASA/brilinta. Titrate off dobutamine as tolerated 2. Lasix therapy. May hold metoprolol while on dobutamine. Lisinopril as tolerated 3. Optimization of GDMT 4. Cardiac rehab, smoking cessation 5. Lifevest, reeval in 3 mo for possible AICD. Justicifation of Admission Dx: Justifications for Admission: Justification of Admission Dx: Yes [place]: Acute STEMI BRITTANIE GRIFFIN MD 05/11/20 1628: CARDIO Progress Notes Assessment Assessment Patient seen and examined Assessment Anterior STEMI: S/P PCI/ERICKA to LAD and staged PCI/ERICKA to RCA Severe ICM: EF at 20%. Rhythm stable. Tapering off dobutamine. LifeVest on discharge. Possible ICD in 3 months. Discussed with the patient Cardiogenic shock: much improved BP, tapering dobutamine as above. Hopefully discharge in 2 days. HELLEN MARIA APRN May 11, 2020 13:01 BRITTANIE GRIFFIN MD May 11, 2020 16:28
--- NOTE | 2020-05-11 13:21 | PDOC ---
[facility] PROGRESS NOTE Chief Complaint Chief Complaint Acute STEMI IE, ST elevated myocardial infarction secondary to a proximal occlusion of the LAD. Successful stenting of the LAD lesion restoring flow with 0% residual lesion. Greater than 90% mid RCA pending second heart cath today TOBACCO ABUSE DISORDER Successful placement of an aortic balloon pump. Left ventricle systolic function is severely impaired. The Ejection Fraction is 20-25%. There is apical akinesis There is severe hypokinesis of the distal anterior and mid to distal septal busch. balloon pump tip is identified at the proximal aspect of the descending thoracic aorta near junction with aortic arch. No focal airspace consolidation or pulmonary edema. Diabetes type 2 Hypertension Dyslipidemia Appreciate cardiology recommendations ASA/brilinta Pending TTE today. Continue IABP 1:1 ration and will reevaluate tomorrow for possible removal Initiate GDMT per BP trend. Optimize statin. Hold ACEi/BB for now with low BP trend. IV hydrate as tolerated. Cardiac rehab, smoking cessation Heparin drip, dopamine, and amiodarone. Heparin drip for DVT prophylaxis Continue Accu-Cheks and R ISS Cardiac diet Full code Discussed with RN and SW Counseled extensively on smoking cessation Dispo pending further cardiology recommendations and removal of IABP and discontinuation of IV inotropic support History of Present Illness History of Present Illness 64-year-old male who developed chest pain earlier today after mowing his lawn. It was severe and he rated it 10 out of 10. It is associated by mild shortness of breath. When it did not resolve for 45 to 60 minutes he called paramedics. EKG by the paramedics suggested an anterior ST elevated myocardial infarction and a STEMI protocol was activated. The patient was met in the emergency room when he arrived. He continues to be in moderate distress. Repeat EKG confirmed ST elevation in the anterior leads suggestive of a LAD lesion. He was treated with aspirin and heparin. Risks and benefits of emergency cardiac catheterization 05/11/2020 Patient seen and examined today. Patient states that dobutamine drip was stopped in the morning and his pressures did drop to 80s over 60s. Patient c ontinues to have IABP in place. Patient has remained chest pain-free 05/10/2020 Patient seen and examined bedside today. Patient is chest pain-free. Patient is waiting for repeat cath today. Tolerating diet yesterday. Ambulating without assistance 05/07/20 Patient seen and examined Chart reviewed Discussed with RN O2 nasal canula Left ventricle systolic function is severely impaired. The Ejection Fraction is 20-25%. There is apical akinesis There is severe hypokinesis of the distal anterior and mid to distal septal busch. Troponin I: 209.36 EF: 20-35% Amiodarone drip Vitals/I&O Vitals/I&O: Vital Signs Date Time Temp Pulse Resp B/P (MAP) Pulse Ox O2 Delivery O2 Flow Rate FiO2 05/11/20 10:28 98.1 72 16 129/70 (89) 99 Room Air 98.1 05/10/20 13:00 2.0 I & O 05/10/20 05/10/20 05/11/20 15:00 23:00 07:00 Intake Total 240 ml 240 ml Output Total 300 ml 2500 ml 500 ml Balance -300 ml -2260 ml -260 ml Physical Exam Physical Exam: GEN: No apparent distress. Alert and oriented HEENT: Normal cephalic, atraumatic, external auditory canals are patent NECK: Supple, no JVD, no thyromegaly was noted LUNGS: Bilateral crackles HEART: RRR, S1, S2 present. Peripheral pulses intact, no obvious murmurs noted ABDOMEN: Soft, nontender. Positive bowel sounds, no organomegaly, normal bowel sounds EXTREMITIES: Without clubbing, cyanosis, or edema. Pedal pulses intact. Negative Homans sign General: No acute distress Heart: Regular rate Lungs: Clear Abdomen: Normal bowel sounds Extremities: Other (1+ edema) Skin: No significant lesion Labs Labs: All labs, images, and reports were reviewed by me personally Current Medications Medications (Trade) Dose Ordered Sig/Akin Route PRN Reason Start Time Stop Time Status Last Admin Dose Admin Ondansetron HCl (Zofran) 4 mg PRN Q8HRS PRN IV NAUSEA/VOMITING 05/05/20 13:45 05/06/20 09:05 DC Iodixanol (Visipaque 320) 100 ml STK-MED ONCE .ROUTE 05/05/20 13:49 05/05/20 13:49 DC Fentanyl Citrate (Fentanyl 2ml Vial) 100 mcg STK-MED ONCE .ROUTE 05/05/20 13:49 05/05/20 13:49 DC Midazolam HCl (Versed) 2 mg STK-MED ONCE .ROUTE 05/05/20 13:50 05/05/20 13:50 DC Heparin Sodium (Porcine) (Heparin Sodium) 10,000 unit STK-MED ONCE .ROUTE 05/05/20 13:50 05/05/20 13:50 DC Bivalirudin (Angiomax) 250 mg STK-MED ONCE IV 05/05/20 13:59 05/05/20 13:59 DC Dopamine HCl/ Dextrose 250 ml @ As Directed STK-MED ONCE IV 05/05/20 14:02 05/05/20 14:02 DC Amiodarone HCl (Cordarone) 150 mg STK-MED ONCE .ROUTE 05/05/20 14:08 05/05/20 14:09 DC Ondansetron HCl (Zofran) 4 mg STK-MED ONCE .ROUTE 05/05/20 14:15 05/05/20 14:15 DC Heparin Sodium/ Sodium Chloride 500 ml @ As Directed STK-MED ONCE .ROUTE 05/05/20 14:16 05/05/20 14:17 DC Iodixanol (Visipaque 320) 100 ml STK-MED ONCE .ROUTE 05/05/20 14:20 05/05/20 14:20 DC Lidocaine HCl (Lidocaine 1% 20ml Vial) 20 ml STK-MED ONCE .ROUTE 05/05/20 14:21 05/05/20 14:21 DC Heparin Sodium/ Sodium Chloride (HEPARIN for ARTERIAL LINE FLUSH) 1,000 unit 1X ONCE IART 05/05/20 14:30 05/05/20 14:49 DC 05/05/20 14:57 Heparin Sodium/ Sodium Chloride (HEPARIN for ARTERIAL LINE FLUSH) 1,000 unit 1X ONCE IART 05/05/20 14:30 05/05/20 14:49 DC 05/05/20 14:57 Midazolam HCl (Versed) 1 mg 1X ONCE IV 05/05/20 14:30 05/05/20 14:49 DC 05/05/20 15:00 Fentanyl Citrate (Fentanyl 2ml Vial) 12.5 mcg 1X ONCE IV 05/05/20 14:30 05/05/20 14:49 DC 05/05/20 15:00 Iodixanol (Visipaque 320) 100 ml 1X ONCE IART 05/05/20 14:30 05/05/20 14:49 DC 05/05/20 14:57 Bivalirudin (Angiomax) 250 mg 1X ONCE IV 05/05/20 14:30 05/05/20 14:49 DC 05/05/20 14:58 Clopidogrel Bisulfate (Plavix) 600 mg 1X ONCE PO 05/05/20 14:30 05/05/20 15:05 DC Lidocaine HCl (Lidocaine 1% 20ml Vial) 18 ml 1X ONCE INJ 05/05/20 14:30 05/05/20 14:49 DC 05/05/20 14:58 Amiodarone HCl (Cordarone) 150 mg 1X ONCE IVP 05/05/20 14:30 05/05/20 14:36 DC 05/05/20 14:59 Amiodarone HCl 450 mg/Dextrose 259 ml @ 0 mls/hr CONT PRN IV SEE I/O RECORD 05/05/20 14:30 05/05/20 22:46 DC 05/05/20 22:45 Ondansetron HCl (Zofran) 4 mg 1X ONCE IVP 05/05/20 14:30 05/05/20 14:37 DC 05/05/20 14:59 Heparin Sodium/ Dextrose 250 ml @ 10 mls/hr CONT PRN IV PER PROTOCOL 05/05/20 14:30 05/07/20 09:41 DC 05/07/20 05:26 Heparin Sodium (Porcine) (Heparin Sodium) 2,250 unit PRN Q6HRS PRN IV FOR UFH LEVEL LESS THAN 0.2 05/05/20 14:30 05/07/20 09:41 DC 05/05/20 19:42 Heparin Sodium/ Sodium Chloride (HEPARIN for ARTERIAL LINE FLUSH) 1,000 unit 1X ONCE IART 05/05/20 14:30 05/05/20 14:49 DC 05/05/20 14:57 Dopamine HCl/ Dextrose 250 ml @ 17.006 mls/ hr 1X ONCE IV 05/05/20 14:45 05/06/20 05:27 DC 05/05/20 14:06 Heparin Sodium (Porcine) (Heparin Sodium) 4,000 unit 1X ONCE IV 05/05/20 13:31 05/05/20 14:57 DC 05/05/20 13:37 Morphine Sulfate (Morphine Sulfate) 4 mg 1X ONCE IV 05/05/20 13:32 05/05/20 14:57 DC 05/05/20 13:38 Ticagrelor (Brilinta) 90 mg STK-MED ONCE .ROUTE 05/05/20 14:46 05/05/20 14:47 DC Info (CONTRAST GIVEN -- Rx MONITORING) 1 each PRN DAILY PRN MC SEE COMMENTS 05/05/20 15:00 05/07/20 14:59 DC Ticagrelor (Brilinta) 180 mg 1X ONCE PO 05/05/20 15:15 05/05/20 15:16 DC 05/05/20 15:11 Ticagrelor (Brilinta) 180 mg 1X ONCE PO 05/05/20 15:15 05/05/20 15:16 DC 05/05/20 17:45 Heparin Sodium/ Dextrose 250 ml @ As Directed STK-MED ONCE IV 05/05/20 15:08 05/05/20 15:08 DC Sodium Chloride (Normal Saline Flush) 3 ml QSHIFT PRN IV AFTER MEDS AND BLOOD DRAWS 05/05/20 15:15 Cancel Sodium Chloride 1,000 ml @ 50 mls/hr Q20H IV 05/05/20 15:09 05/06/20 10:41 DC 05/06/20 10:36 Aspirin (Ecotrin) 81 mg DAILYWBKFT PO 05/06/20 08:00 05/11/20 09:33 Metoprolol Tartrate (Lopressor) 12.5 mg BID PO 05/05/20 21:00 05/06/20 10:56 DC 05/05/20 20:51 Lisinopril (Prinivil) 5 mg DAILY PO 05/06/20 09:00 05/06/20 08:59 DC Atorvastatin Calcium (Lipitor) 40 mg QHS PO 05/05/20 21:00 05/10/20 23:51 Nitroglycerin (Nitrostat) 0.4 mg PRN Q5MIN PRN SL CHEST PAIN 05/05/20 15:15 Atropine Sulfate (ATROPINE 0.5mg SYRINGE) 0.5 mg PRN 1X PRN IV BRADYCARDIA 05/05/20 15:15 Oxycodone/ Acetaminophen (Percocet 5/325) 2 tab PRN Q4HRS PRN PO MODERATE PAIN, SEVERE PAIN 05/05/20 15:15 05/09/20 08:42 Acetaminophen (Tylenol) 650 mg PRN Q6HRS PRN PO Headaches, Temp > 101.5' 05/05/20 17:00 Lorazepam (Ativan Inj) 0.5 mg PRN Q6HRS PRN IVP ANXIETY / AGITATION 05/05/20 17:00 Ondansetron HCl (Zofran) 4 mg PRN Q6HRS PRN IVP NAUSEA/VOMITING 05/05/20 17:00 05/05/20 21:12 Sodium Chloride (Normal Saline Flush) 3 ml QSHIFT PRN IV AFTER MEDS AND BLOOD DRAWS 05/05/20 17:00 Acetaminophen/ Hydrocodone Bitart (Lortab 5/325) 1 tab PRN Q4HRS PRN PO MILD PAIN 1-3 05/05/20 17:00 05/08/20 23:24 Morphine Sulfate (Morphine Sulfate) 1 mg PRN Q1HR PRN IV PAIN 05/05/20 17:00 05/07/20 15:32 Senna/Docusate Sodium (Senna Plus) 1 tab BID PO 05/05/20 21:00 05/10/20 21:04 Lactulose (Lactulose) 20 gm PRN Q12HR PRN PO CONSTIPATION 05/05/20 17:00 Dopamine HCl/ Dextrose 250 ml @ 16.988 mls/ hr CONT PRN IV SEE I/O RECORD 05/05/20 20:00 05/09/20 05:45 Alprazolam (Xanax) 0.25 mg PRN Q6HRS PRN PO ANXIETY / AGITATION 05/05/20 20:45 05/10/20 21:04 Cyclobenzaprine HCl (Flexeril) 10 mg PRN DAILY PRN PO MUSCLE SPASMS 05/05/20 20:45 05/08/20 21:23 Ticagrelor (Brilinta) 90 mg BID PO 05/06/20 09:00 05/11/20 09:32 Lisinopril (Prinivil) 5 mg DAILY@1300 PO 05/06/20 13:00 05/06/20 10:56 DC Lisinopril (Prinivil) 5 mg DAILY@1300 PO 05/08/20 13:00 Metoprolol Tartrate (Lopressor) 12.5 mg BID PO 05/06/20 11:00 05/11/20 09:34 Amiodarone HCl 450 mg/Dextrose 259 ml @ 0 mls/hr CONT PRN IV SEE I/O RECORD 05/06/20 15:45 05/07/20 10:49 DC 05/07/20 08:06 Sodium Chloride 1,000 ml @ 50 mls/hr Q20H IV 05/06/20 19:00 05/11/20 07:30 Info (Anti-Coagulation Monitoring By Pharmacy) 1 each PRN DAILY PRN MC SEE COMMENTS 05/07/20 09:00 Cancel Clopidogrel Bisulfate (Plavix) 600 mg STK-MED ONCE .ROUTE 05/05/20 15:00 05/07/20 09:06 DC Famotidine (Pepcid) 20 mg BID PO 05/07/20 21:00 05/11/20 09:32 Magnesium Sulfate 50 ml @ 25 mls/hr 1X ONCE IV 05/07/20 10:00 05/07/20 11:59 DC 05/07/20 10:50 Lidocaine HCl (Xylocaine-Mpf 1% 2ml Vial) 2 ml STK-MED ONCE .ROUTE 05/07/20 13:02 05/07/20 13:02 DC Lidocaine HCl (Xylocaine 1% Pf 30ml Vial) 30 ml STK-MED ONCE .ROUTE 05/07/20 13:03 05/07/20 13:04 DC Sertraline HCl (Zoloft) 50 mg HS PO 05/08/20 21:00 05/10/20 21:04 Tamsulosin HCl (Flomax) 0.4 mg HS PO 05/08/20 21:00 05/10/20 21:03 Furosemide (Lasix) 40 mg 1X ONCE IVP 05/09/20 14:30 05/09/20 14:45 DC 05/09/20 15:09 Dobutamine HCl/ Dextrose 250 ml @ 5.658 mls/ hr CONT PRN IV SEE I/O RECORD 05/09/20 14:30 05/11/20 12:36 Trazodone HCl (Desyrel) 50 mg PRN QHS PRN PO INSOMNIA 05/09/20 19:15 05/10/20 21:08 Lidocaine HCl (Xylocaine 1% Pf 30ml Vial) 30 ml STK-MED ONCE .ROUTE 05/07/20 13:00 05/10/20 08:45 DC Lidocaine HCl (Xylocaine-Mpf 1% 2ml Vial) 2 ml STK-MED ONCE .ROUTE 05/07/20 13:00 05/10/20 08:45 DC Lidocaine HCl (Xylocaine-Mpf 1% 2ml Vial) 2 ml STK-MED ONCE .ROUTE 05/10/20 12:07 05/10/20 12:07 DC Heparin Sodium/ Sodium Chloride 500 ml @ As Directed STK-MED ONCE .ROUTE 05/10/20 12:07 05/10/20 12:07 DC Iodixanol (Visipaque 320) 100 ml STK-MED ONCE .ROUTE 05/10/20 12:07 05/10/20 12:07 DC Fentanyl Citrate (Fentanyl 2ml Vial) 100 mcg STK-MED ONCE .ROUTE 05/10/20 12:33 05/10/20 12:33 DC Midazolam HCl (Versed) 2 mg STK-MED ONCE .ROUTE 05/10/20 12:33 05/10/20 12:33 DC Heparin Sodium (Porcine) (Heparin Sodium) 10,000 unit STK-MED ONCE .ROUTE 05/10/20 12:33 05/10/20 12:33 DC Verapamil HCl (Verapamil) 5 mg STK-MED ONCE .ROUTE 05/10/20 12:33 05/10/20 12:33 DC Nitroglycerin (Nitroglycerin) 200 mcg STK-MED ONCE .ROUTE 05/10/20 12:33 05/10/20 12:33 DC Lidocaine HCl (Lidocaine 1% 20ml Vial) 20 ml STK-MED ONCE .ROUTE 05/10/20 12:52 05/10/20 12:52 DC Bivalirudin (Angiomax) 250 mg STK-MED ONCE IV 05/10/20 12:52 05/10/20 12:53 DC Nitroglycerin (Nitroglycerin) 200 mcg 1X ONCE IART 05/10/20 13:00 05/10/20 13:29 DC 05/10/20 13:00 Verapamil HCl (Verapamil) 2.5 mg 1X ONCE IART 05/10/20 13:00 05/10/20 13:36 DC 05/10/20 13:00 Heparin Sodium (Porcine) (Heparin Sodium) 2,500 unit 1X ONCE IART 05/10/20 13:00 05/10/20 13:36 DC 05/10/20 13:00 Heparin Sodium/ Sodium Chloride (HEPARIN for ARTERIAL LINE FLUSH) 1,000 unit 1X ONCE IART 05/10/20 13:00 05/10/20 13:36 DC 05/10/20 13:00 Heparin Sodium/ Sodium Chloride (HEPARIN for ARTERIAL LINE FLUSH) 1,000 unit 1X ONCE IART 05/10/20 13:00 05/10/20 13:36 DC 05/10/20 13:00 Midazolam HCl (Versed) 2 mg 1X ONCE IV 05/10/20 13:00 05/10/20 13:36 DC 05/10/20 13:00 Fentanyl Citrate (Fentanyl 2ml Vial) 100 mcg 1X ONCE IV 05/10/20 13:00 05/10/20 13:36 DC 05/10/20 13:00 Iodixanol (Visipaque 320) 100 ml 1X ONCE IART 05/10/20 13:00 05/10/20 13:36 DC 05/10/20 13:00 Lidocaine HCl (Lidocaine 1% 20ml Vial) 20 ml 1X ONCE INJ 05/10/20 13:00 05/10/20 13:36 DC 05/10/20 13:00 Lidocaine HCl (Xylocaine-Mpf 1% 2ml Vial) 2 ml 1X ONCE INJ 05/10/20 13:00 05/10/20 13:36 DC 05/10/20 13:00 Bivalirudin (Angiomax) 250 mg 1X ONCE IV 05/10/20 13:15 05/10/20 13:36 DC 05/10/20 13:15 Nitroglycerin (Nitroglycerin) 200 mcg 1X ONCE IART 05/10/20 13:15 05/10/20 13:36 DC 05/10/20 13:15 Nitroglycerin (Nitroglycerin) 200 mcg STK-MED ONCE .ROUTE 05/10/20 13:10 05/10/20 13:10 DC Info (CONTRAST GIVEN -- Rx MONITORING) 1 each PRN DAILY PRN MC SEE COMMENTS 05/10/20 13:45 05/12/20 13:44 Furosemide (Lasix) 40 mg 1X ONCE IVP 05/10/20 13:45 05/10/20 13:46 DC 05/10/20 16:25 Furosemide (Lasix) 20 mg DAILY PO 05/11/20 09:00 05/11/20 09:32 Review of Systems Review of Systems: CONSTITUIONAL: Denies weight loss, fever and chills. HEENT: Denies changes in vision and hearing. RESPIRATORY: Denies SOB and cough. CV: Denies palpitations and CP. GI: Denies abdominal pain, nausea, vomiting and diarrhea. : Denies dysuria and urinary frequency. MSK: Denies myalgia and joint pain. SKIN: Denies rash and pruritus. NEUROLOGICAL: Denies headache and syncope. PSYCHIATRIC: Denies recent changes in mood. Denies anxiety and depression. Assessment and Plan Assessmemt and Plan Problems Medical Problems: (1) STEMI (ST elevation myocardial infarction) Status: Acute Comment Review of Relevant I have reviewed the following items francisca (where applicable) has been applied. Medications: Current Medications Medications (Trade) Dose Ordered Sig/Akin Route PRN Reason Start Time Stop Time Status Last Admin Dose Admin Furosemide (Lasix) 40 mg 1X ONCE IVP 05/10/20 13:45 05/10/20 13:46 DC 05/10/20 16:25 Furosemide (Lasix) 20 mg DAILY PO 05/11/20 09:00 05/11/20 09:32 Justicifation of Admission Dx: Justifications for Admission: Justification of Admission Dx: Yes IA: Acute STEMI MARCUS VELEZ MD May 11, 2020 13:21
--- NOTE | 2020-05-11 15:37 | NUR ---
SS following up with discharge planning. Pt's RN contacted SS and requested referral for Life Vest. SS phoned and faxed all needed clinical to Maureen at [facility], ; fax [phone]. SS currently awaiting Life Vest order. SS will fax once received. SS will continue to follow for discharge planning.
--- NOTE | 2020-05-11 20:00 | NUR ---
turned off dobutamine drip. bp maintained. lcrn
[2020-05-11] MEDS: ALPRAZolam 0.25 MG TABLET PO PRN (21:45)
[2020-05-11] MEDS: TAMSULOSIN 0.4 MG CAP.ER.24H. PO SCH (21:45)
[2020-05-11] MEDS: traZODone 50 MG TABLET. PO PRN (21:46)
[2020-05-11] MEDS: ATORVASTATIN CALCIUM 20 MG TABLET PO SCH (21:46)
[2020-05-11] MEDS: SERTRALINE 50 MG TABLET. PO SCH (21:47)
[2020-05-12 03:55] VITALS: BP 97/59
[2020-05-12 07:00] VITALS: BP 92/58
[2020-05-12] MEDS: IV NORMAL SALINE 1000ML BAG 1,000 ML IV SCH (07:24)
[2020-05-12] MEDS: FUROSEMIDE 20 MG TABLET PO SCH (08:33)
[2020-05-12] MEDS: LISINOPRIL 5 MG TABLET. PO SCH ×2 (08:33→12:47)
[2020-05-12] MEDS: METOPROLOL TART IMMED RELEASE 25 MG TABLET. PO SCH ×2 (08:33→10:24)
[2020-05-12] MEDS: ASPIRIN ENTERIC COATED 81 MG TABLET.DR. PO SCH (09:00)
[2020-05-12] MEDS: SENNOSIDES/DOCUSATE 8.6/50MG TABLET. PO SCH (09:00)
[2020-05-12] MEDS: FAMOTIDINE 20 MG TABLET. PO SCH (09:00)
[2020-05-12] MEDS: TICAGRELOR 90 MG TABLET. PO SCH (09:00)
[2020-05-12 11:00] VITALS: BP 94/62
--- NOTE | 2020-05-12 11:51 | NUR ---
Life vest rep is educating patient and family
--- NOTE | 2020-05-12 11:56 | NUR ---
SS following up with discharge planning. SS reviewed pt chart and discussed with pt RN. Pt is currently on room air. Order for Life Vest was phoned and faxed to [facility] this morning. Life Vest delivered to pt in room and pt currently receiving education on Life Vest. Pt being set up with Cardiac Rehabilitation outpatient. Discharge plan is to home when ready. SS will continue to follow for discharge planning.
--- NOTE | 2020-05-12 12:02 | DISCH ---
DISCHARGE INSTRUCTIONS Condition on Discharge Condition on Discharge: Stable Activity After Discharge Activity Instructions for Disc: Activity as tolerated Diet after Discharge Diet after Discharge: Cardiac Contacting the DR. after DC Call your doctor for: If your condition worsens Follow-Up Follow up with: Senior Linux Unix Administrator regarding your cardiac rehabilitation MARCUS VELEZ MD May 12, 2020 12:02
[2020-05-12] MEDS ORDERED: ASPI-886 PO (12:11)
[2020-05-12 12:47] VITALS: BP 94/62
--- NOTE | 2020-05-12 13:02 | PDOC ---
CARDIO Progress Notes Date and Time Date of Service 05/12/2020 Time of Evaluation 0940 Subjective Subjective: No Chest Pain, No shortness of breath, No Palpitations Vitals Vitals Vital Signs Date Time Temp Pulse Resp B/P (MAP) Pulse Ox O2 Delivery O2 Flow Rate FiO2 05/12/20 11:00 97.7 65 16 94/62 (73) 97 Room Air 97.7 Weight Weight [ ] Input and Output Intake and Output Intake and Output 05/12/20 07:00 Intake Total 1540 ml Output Total 1750 ml Balance -210 ml Intake Oral 1540 ml Output Urine Total 1750 ml # Voids 1 # Bowel Movements 1 Physical Exam HEENT: Neck Supple W Full Motion Chest: Symmetric LUNGS: Other (diminished bases) Heart: RRR (SR) Abdomen: Soft N/T Extremities: No Edema, No Calf Tenderness Neurology: alert, oriented, follow commands Assessment Assessment 1. Anterior STEMI: S/P PCI/ERICKA to LAD and staged PCI/ERICKA to RCA 2. Severe ICM: EF at 20% 3. HLP 4. Transaminitis: due to cardiogenic shock. LFTs much better 5. Cardiogenic shock: resolved. BP at low end but stable 6. Tobaccoism 7. Mild AMBER: stable 8. Reperfusion arrhythmias: NSVTs. stable, no further ectopies Recommendations 1. ASA/brilinta 2. Low dose lasix, lisinopril and toprol XL. Lipitor 3. Continue outpt optimization of GDMT as tolerated 4. Cardiac rehab, smoking cessation 5. Lifevest, reeval in 3 mo for possible AICD. Justicifation of Admission Dx: Justifications for Admission: Justification of Admission Dx: Yes MN: Acute STEMI HELLEN MARIA APRN May 12, 2020 13:02
[2020-05-12] MEDS ORDERED: TICA90TA PO (13:12)
[2020-05-12] MEDS ORDERED: LISI2.5T PO (13:12)
[2020-05-12] MEDS ORDERED: POTA10TA12 PO (13:12)
[2020-05-12] MEDS ORDERED: ATOR20TA58 PO (13:12)
[2020-05-12] MEDS ORDERED: FURO20TA3 PO (13:12)
[2020-05-12] MEDS ORDERED: METO-239 PO (13:12)
[2020-05-12] MEDS ORDERED: POTASSIUM CHLORIDE 10 MEQ TABLET.ER. PO SCH (13:30)
--- NOTE | 2020-05-12 14:51 | PDOC3 ---
[facility]-Discharge Summary Date of Admission: Date of Admission: May 05, 2020 Date of Discharge: Date of Discharge: May 12, 2020 Admission Diagnosis: Admitting Diagnosis: STEMI History of Menieres disease History of osteoarthritis Discharge Diagnosis: Discharge Diagnosis: Acute STEMI proximal occlusion of the LAD, Successful stenting of the LAD lesion restoring flow with 0% residual lesion. Greater than 90% mid RCA with stenting TOBACCO ABUSE DISORDER Successful placement of an aortic balloon pump. Left ventricular dysfunction 20% Diabetes type 2 Hypertension Dyslipidemia Consults: Consults: Cardiology Procedures: Procedures: Left heart cath. Intra-aortic balloon pump Hospital Course: Hospital Course: 64-year-old gentleman with past medical history of Mnire's disease who recently had a procedure in order to surgically treat his condition. Patient was in his usual state of health until this afternoon when he was working in his yard mowing the lawn and came back inside the house due to the heat when he started experiencing chest discomfort over the precordial area which was of a pressure like nature 10 out of 10 intensity with associated diaphoresis tingling in his arms sensation of impending doom nausea. Patient reports having the symptoms lasted at least an hour and he decided to call the EMS services due to the progressive nature of his symptoms. The patient did not report shortness of breath no loss of consciousness no recent angina type of symptoms were reported prior to this incident. Patient denies any recent upper respiratory tract infections no headache blurred vision no strokelike symptoms no palpitations no abdominal pain no nausea vomiting or diarrhea prior to the incident no lower extremity edema no orthopnea no paroxysmal nocturnal dyspnea has been reported. The patient was evaluated in the emergency department found to have a STEMI and was quickly taken to the cardiac Electrical Controls Technician. Patient is being seen in the ICU at the present time he is on an aortic balloon pump. Patient is not experiencing chest pain at the time of my visit and is hemodynamically stable Patient was taken to the Electrical Controls Technician by cardiology for initial angioplasty and stent for the LAD. A second left heart cath was subsequently planned after that for angioplasty and stenting of the RCA. Patient did have cardiogenic shock in which he was kept hemodynamically stable with dobutamine. Also an intra-aortic balloon pump was placed after the first heart cath. Patient's blood pressure was stable as the dobutamine drip was weaned off. Patient will be discharged with a LifeVest. Patient will be reevaluated from cardiology in 3 months for possible ICD placement. Patient was seen on day of discharge chest pain-free and ambulating. Rest of hospital course was uneventful. Physical exam on discharge: General: No acute distress Heart: Regular rate Lungs: Clear Abdomen: Normal bowel sounds Extremities: Bilateral +1 pedal edema Skin: No significant lesion Disposition: Disposition/Orders: D/C to Home Activity: Activity: Resume previous activity Medications: Home Meds Active Scripts Lisinopril (LISINOPRIL) 2.5 Mg Tablet, 1 TAB PO DAILY for chf for 30 Days, #30 TAB 3 Refills Prov:HELLEN MARIA METAL MELTER 05/12/20 Metoprolol Succinate (METOPROLOL SUCCINATE ( XL )) 25 Mg Tab.er.24h, 1 TAB PO DAILY for CAD for 30 Days, #30 TAB 3 Refills Prov:HELLEN MARIA 05/12/20 Potassium Chloride (KLOR-CON 10) 10 Meq Tablet.er, 10 MEQ PO DAILYWBKFT for lasix therapy for 30 Days, #30 TAB.SR 3 Refills Prov:HELLEN MARIA METAL MELTER 05/12/20 Furosemide (FUROSEMIDE) 20 Mg Tablet, 20 MG PO DAILY for chf for 30 Days, #30 TAB 3 Refills Prov:HELLEN MARIA 05/12/20 Atorvastatin Calcium (ATORVASTATIN CALCIUM) 20 Mg Tablet, 40 MG PO QHS for HLP for 30 Days, #60 TAB 3 Refills Prov:HELLEN MARIA METAL MELTER 05/12/20 Ticagrelor (BRILINTA) 90 Mg Tablet, 90 MG PO BID for CAD for 30 Days, #60 TAB 3 Refills Prov:HELLEN MARIA 05/12/20 Aspirin (ASPIRIN EC) 81 Mg Tablet.dr, 81 MG PO DAILYWBKFT for CAD for 30 Days, #30 TAB.SR Prov:MARCUS VELEZ MD 05/12/20 Reported Medications Vitamin D3/Vitamin K2 (D3 + K2 DOTS 1,000 UNITS TAB) 1 Each Tab.rapdis, 1 TAB PO HS for SUPLIMENT for 30 Days, #30 TAB 0 Refills 05/05/20 Multivitamin (MULTI VITAMIN DAILY) 1 Each Tablet, 1 TAB PO HS for SUPLIMENT for 30 Days, #30 TAB 0 Refills 05/05/20 Famotidine (PEPCID) 20 Mg Tablet, 20 MG PO BID for ACID, TAB 05/05/20 Sertraline Hcl (ZOLOFT) 50 Mg Tablet, 1 TAB PO HS for DEPRESSION, #30 TAB 2 Refills 05/05/20 Silodosin (RAPAFLO) 8 Mg Capsule, 1 CAP PO HS for BPH, #30 CAP 5 Refills 05/05/20 Discontinued Reported Medications Simvastatin (SIMVASTATIN) 40 Mg Tablet, 1 TAB PO QHS for CHOLESTROL, #90 TAB 3 Refills 05/05/20 Scheduled Aspirin (Aspirin Ec), 81 MG PO DAILYWBKFT Atorvastatin Calcium (Atorvastatin Calcium), 40 MG PO QHS Famotidine (Pepcid), 20 MG PO BID, (Reported) Furosemide (Furosemide), 20 MG PO DAILY Lisinopril (Lisinopril), 1 TAB PO DAILY Metoprolol Succinate (Metoprolol Succinate ( Xl )), 1 TAB PO DAILY Multivitamin (Multi Vitamin Daily), 1 TAB PO HS, (Reported) Potassium Chloride (Klor-Con 10), 10 MEQ PO DAILYWBKFT Sertraline Hcl (Zoloft), 1 TAB PO HS, (Reported) Silodosin (Rapaflo), 1 CAP PO HS, (Reported) Ticagrelor (Brilinta), 90 MG PO BID Vitamin D3/Vitamin K2 (D3 + K2 Dots 1,000 Units Tab), 1 TAB PO HS, (Reported) Discontinued Medications Simvastatin (Simvastatin), 1 TAB PO QHS, (Reported) Total Time: Total Time: Total time spent was 35 minutes in preparing scripts, discharge planning with SWI and RN and preparing this discharge summary Justicifation of Admission Dx: Justifications for Admission: Justification of Admission Dx: Yes MO: Acute STEMI MARCUS VELEZ MD May 12, 2020 14:51
--- NOTE | 2020-05-12 15:44 | NUR ---
Discharge Note: JEANA ARSHAD Discharge instructions and discharge home medications reviewed with Patient and a copy given. All questions have been answered and understanding verbalized. The following instructions and handouts were given: Heart disease Discontinued lines and drains: Peripheral IV intact. Patient discharged to Home or Self Care with Family Member via Ambulated
[2020-05-13] MEDS ORDERED: METOPROLOL SUCC 24HR ER 25 MG TAB.ER.24H. PO SCH (09:00)
== END 2020-05-12 14:00 | disposition home or self-care (01) | DRG 270 ==
LOC: ER 13:31 → 1 WEST ICU 13:41 → 2 SOUTH 05-08 11:50
PROVIDERS: ADMIT Internal Medicine; ATTEND Internal Medicine
PROC: 027035Z Dilation of Coronary Artery, One Artery with Two Drug-eluting Intraluminal Devices, Percutaneous Approach (ICD-10-PCS; principal; 2020-05-05)
PROC: 5A02210 Assistance with Cardiac Output using Balloon Pump, Continuous (ICD-10-PCS; 2020-05-05)
PROC: 4A023N7 Measurement of Cardiac Sampling and Pressure, Left Heart, Percutaneous Approach (ICD-10-PCS; 2020-05-05)
PROC: B2111ZZ Fluoroscopy of Multiple Coronary Arteries using Low Osmolar Contrast (ICD-10-PCS; 2020-05-05)
PROC: 027034Z Dilation of Coronary Artery, One Artery with Drug-eluting Intraluminal Device, Percutaneous Approach (ICD-10-PCS; 2020-05-10)
DX: I21.09 ST elevation (STEMI) myocardial infarction involving other coronary artery of anterior wall (principal); R57.0 Cardiogenic shock; I50.41 Acute combined systolic (congestive) and diastolic (congestive) heart failure; R65.11 Systemic inflammatory response syndrome (SIRS) of non-infectious origin with acute organ dysfunction; N17.9 Acute kidney failure, unspecified; I42.9 Cardiomyopathy, unspecified; E11.9 Type 2 diabetes mellitus without complications; E78.5 Hyperlipidemia, unspecified; F17.200 Nicotine dependence, unspecified, uncomplicated; H81.09 Meniere's disease, unspecified ear; I11.0 Hypertensive heart disease with heart failure; Z82.49 Family history of ischemic heart disease and other diseases of the circulatory system; Z96.649 Presence of unspecified artificial hip joint; Z98.61 Coronary angioplasty status; M19.90 Unspecified osteoarthritis, unspecified site; I25.5 Ischemic cardiomyopathy; R74.0 Nonspecific elevation of levels of transaminase and lactic acid dehydrogenase [LDH]
CPT/HCPCS: 33967; 36415; 71045; 80048; 80053; 80061; 80076; 81001; 83036; 83690; 83735; 83880; 84443; 84484; 85007; 85025; 85027; 85520; 85610; 85730; 92928; 92941; 93005; 93306; 93454; 96374; 96375; 99152; 99153; 99285; C1725; C1769; C1874; C1887; C1892; J0282; J0583; J1250; J1265; J1644; J1940; J2250; J2270; J2405; J3010; J3475; J3490; J7030; J7060; Q9967; G0378

== ENCOUNTER 2021-02-09 15:44 | Observation (INO) | payer MEDICARE, OTHER ==
[~2021-02-09] VITALS: Ht 175.3 cm; Wt 89.5 kg
[~2021-02-09 15:44] MED LIST changes: +ASPI-886 PO; +ATOR20TA58 PO; +FAMO-63 PO; +FURO20TA3 PO; -HEPARIN for IV BOLUS 10,000 UNIT/10 ML VIAL. IV ONE; +LISI2.5T PO; +METO-239 PO; +MULT-245 PO; +POTA10TA12 PO; +SERT50TA PO; +SILO8CAP2 PO; +SIMV40TA18 PO; +TICA90TA PO; +VITA1TAB31 PO
[2021-02-09] MEDS ORDERED: ASPIRIN CHEWABLE 81 MG TABLET. PO ONE (16:00)
--- NOTE | 2021-02-09 16:06 | ED.ADGEN ---
Past Medical History Past Medical History: Heart Disease, Other Additional Past Medical Histor: BRADYCADIA Past Surgical History: Angioplasty, Hip Replacement, Other Additional Past Surgical Histo: R HIP Smoking Status: Current Every Day Smoker Alcohol Use: None General Adult EDM: Chief Complaint: CHEST PAIN HPI: HPI: Patient is a 65-year-old male who arrives via private vehicle to the emergency department after developing dizziness at approximately 11:00 this morning. P ranjana has a history of Mnire's disease and has not had any bouts of dizziness associated with this process. Patient states however he became dizzy and experienced nausea and vomiting. Patient also states he had chest tightness during this time as well. Patient became very concerned because the last time he had an episode of chest tightness it was associate with dizziness as well as nausea and vomiting and he had an obstructed left anterior descending artery of his heart. Patient went through coronary angioplasty and received a stent at that time. Patient states he contacted his son who is a physician who referred him to the emergency department. He also instructed him to take nitroglycerin. Patient did take nitroglycerin with some relief. Patient states since that time his dizziness has subsided as well as his chest pain. At no time did the patient have any focal neurological weakness or sensory deficit. Additionally he denies any slurring of her speech or strokelike symptoms otherwise. He is awake, alert and resting comfortably now. Review of Systems: Review of Systems: Constitutional: Denies fever or chills. [] Eyes: Denies change in visual acuity. [] HENT: Denies nasal congestion or sore throat. [] Respiratory: Denies cough or shortness of breath. [] Cardiovascular: Reports chest pain. Denies edema. [] GI: Reports nausea with vomiting. Denies abdominal pain, bloody stools or diarrhea. [] : Denies dysuria. [] Musculoskeletal: Denies back pain or joint pain. [] Integument: Denies rash. [] Neurologic: Reports dizziness. Denies headache, focal weakness or sensory changes. [] Endocrine: Denies polyuria or polydipsia. [] Lymphatic: Denies swollen glands. [] Psychiatric: Denies depression or anxiety. [] Current Medications: Current Medications Medications (Trade) Dose Ordered Sig/Akin Start Time Stop Time Status Last Admin Dose Admin Aspirin (Aspirin Chewable) 324 mg 1X ONCE 02/09/21 16:00 02/09/21 16:01 DC 02/09/21 16:32 324 MG Allergies: Allergies: Allergies Coded Allergies Type Severity Reaction Last Updated Verified No Known Drug Allergies 05/05/20 No Physical Exam: PE: Constitutional: Well developed, well nourished, no acute distress, non-toxic appearance. [] HENT: Normocephalic, atraumatic, bilateral external ears normal, oropharynx moist, no oral exudates, nose normal. [] Eyes: PERRLA, EOMI, conjunctiva normal, no discharge. [] Neck: Normal range of motion, no tenderness, supple, no stridor. [] Cardiovascular:Heart rate regular rhythm, no murmur [] Lungs & Thorax: Bilateral breath sounds clear to auscultation [] Abdomen: Bowel sounds normal, soft, no tenderness, no masses, no pulsatile ma sses. [] Skin: Warm, dry, no erythema, no rash. [] Back: No tenderness, no CVA tenderness. [] Extremities: No tenderness, no cyanosis, no clubbing, ROM intact, no edema. [] Neurologic: Alert and oriented X 3, normal motor function, normal sensory function, no focal deficits noted. [] Psychologic: Affect normal, judgement normal, mood normal. [] Current Patient Data: Labs: Laboratory Tests Test 02/09/21 15:50 White Blood Count 9.7 x10^3/uL (4.0-11.0) Red Blood Count 4.33 x10^6/uL (4.30-5.70) Hemoglobin 13.9 g/dL (13.0-17.5) Hematocrit 40.1 % (39.0-53.0) Mean Corpuscular Volume 93 fL (79-100) Mean Corpuscular Hemoglobin 32 pg (25-35) Mean Corpuscular Hemoglobin Concent 35 g/dL (31-37) Red Cell Distribution Width 12.8 % (11.5-14.5) Platelet Count 183 x10^3/uL (140-400) Neutrophils (%) (Auto) 86 % (31-73) H Lymphocytes (%) (Auto) 9 % (24-48) L Monocytes (%) (Auto) 4 % (0-9) Eosinophils (%) (Auto) 0 % (0-3) Basophils (%) (Auto) 0 % (0-3) Neutrophils # (Auto) 8.4 x10^3/uL (1.8-7.7) H Lymphocytes # (Auto) 0.8 x10^3/uL (1.0-4.8) L Monocytes # (Auto) 0.4 x10^3/uL (0.0-1.1) Eosinophils # (Auto) 0.0 x10^3/uL (0.0-0.7) Basophils # (Auto) 0.0 x10^3/uL (0.0-0.2) Segmented Neutrophils % 86 % (35-66) H Band Neutrophils % 1 % (0-9) Lymphocytes % 9 % (24-48) L Monocytes % 3 % (0-10) Eosinophils % 1 % (0-5) Platelet Estimate Adequate (ADEQUATE) Sodium Level 143 mmol/L (136-145) Potassium Level 4.4 mmol/L (3.5-5.1) Chloride Level 108 mmol/L (98-107) H Carbon Dioxide Level 25 mmol/L (21-32) Anion Gap 10 (6-14) Blood Urea Nitrogen 19 mg/dL (8-26) Creatinine 1.3 mg/dL (0.7-1.3) Estimated GFR (Cockcroft-Gault) 55.2 BUN/Creatinine Ratio 15 (6-20) Glucose Level 117 mg/dL (70-99) H Calcium Level 8.9 mg/dL (8.5-10.1) Total Bilirubin 0.6 mg/dL (0.2-1.0) Aspartate Amino Transferase (AST) 26 U/L (15-37) Alanine Aminotransferase (ALT) 36 U/L (16-63) Alkaline Phosphatase 75 U/L (46-116) Troponin I Quantitative < 0.017 ng/mL (0.000-0.055) BT-Ytg-V-Type Natriuretic Peptide 1681 pg/mL (0-124) H Total Protein 6.8 g/dL (6.4-8.2) Albumin 4.2 g/dL (3.4-5.0) Albumin/Globulin Ratio 1.6 (1.0-1.7) Lipase 100 U/L (73-393) Laboratory Tests 02/09/21 15:50 Laboratory Tests 02/09/21 15:50 Vital Signs: Vital Signs Date Time Temp Pulse Resp B/P (MAP) Pulse Ox O2 Delivery O2 Flow Rate FiO2 02/09/21 15:48 98.6 62 18 122/64 (83) 97 98.6 EKG: EKG: [] EKG was obtained at 1550 hrs. and demonstrated a sinus rhythm with a ventricular of 60 bpm. There is left axis deviation present. There is morphology consistent with a previous anterior infarct. There are no acute ST/T wave changes at this time. Heart Score: C/O Chest Pain: Yes HEART Score for Chest Pain: HEART Score for Chest Pain Response (Comments) Value History Moderately Suspicious 1 ECG Nonspecific Repolarizatio 1 Age > 65 2 Risk Factors >3 Risk Factors or Hx CAD 2 Troponin < Normal Limit 0 Total 6 Risk Factors: Risk Factors: DM, Current or recent (<one month) smoker, HTN, HLP, family history of CAD, obesity. Risk Scores: Score 0 - 3: 2.5% MACE over next 6 weeks - Discharge Home Score 4 - 6: 20.3% MACE over next 6 weeks - Admit for Clinical Observation Score 7 - 10: 72.7% MACE over next 6 weeks - Early Invasive Strategies Radiology/Procedures: Radiology/Procedures: [] Impression: [address] [id number] IMAGING REPORT Signed PATIENT: JEANA ARSHAD WACCOUNT: [id number] : 1955 LOCATION: ER AGE: 65 SEX: M EXAM STATUS: REG ER ORD. PHYSICIAN: MARCY UP DO REASON: Pain PROCEDURE: PORTABLE CHEST 1V Exam: Chest one view INDICATION: Pain TECHNIQUE: Frontal view of the chest Comparisons: 05/06/2020 FINDINGS: The cardiomediastinal silhouette and pulmonary vessels are within normal limits. The lung and pleural spaces are clear. IMPRESSION: No acute cardiopulmonary process. Electronically signed by: Dandy Alicia MD (02/09/2021 4:19 PM) [facility] DICTATED and SIGNED BY: DANDY ALICIA MD DATE: 02/09/21 [id number] [address] IMAGING REPORT Signed PATIENT: JEANA ARSHAD WACCOUNT: [id number] : 1955 LOCATION: ER AGE: 65 SEX: M EXAM STATUS: REG ER ORD. PHYSICIAN: MARCY UP DO REASON: dizzy PROCEDURE: CT HEAD WO CONTRAST EXAM: CT head without contrast INDICATION: Dizzy COMPARISON: None TECHNIQUE: Axial CT imaging through the head without intravenous contrast. Sagittal and coronal reformats were obtained. One or more of the following individualized dose reduction techniques were utilized for this examination: 1. Automated exposure control 2. Adjustment of the mA and/or kV according to patient size 3. Use of iterative reconstruction technique. FINDINGS: The ventricles and sulci are prominent. Erickson-white matter differentiation is maintained. There is no intracranial hemorrhage, acute infarct, or mass lesion. The calvarium is intact. Visualized paranasal sinuses are clear. There are surgical changes of the left mastoid air cells and opacification of the remaining inferior left mastoid air cells. Globes and orbits are intact. IMPRESSION: No acute intracranial abnormality. Electronically signed by: Karyna Street MD (02/09/2021 4:43 PM) [id number] DICTATED and SIGNED BY: KARYNA STREET MD DATE: 02/09/21 [id number] 0 Course & Med Decision Making: Course & Med Decision Making Pertinent Labs and Imaging studies reviewed. (See chart for details) [] Jose Armando Disclaimer: Jose Armando Disclaimer: This electronic medical record was generated, in whole or in part, using a voice recognition dictation system. Departure Departure Impression: Primary Impression: Chest pain Disposition: ADMITTED INPATIENT Admitting Physician: YESIKA Condition: STABLE Referrals: STERLING STONE DO (PCP) MARCY UP DO Feb 09, 2021 16:06
[2021-02-09 16:07] LABS: BASO % 0 % (0-3); EOS % 0 % (0-3); HEMATOCRIT 40.1 % (39.0-53.0); HEMOGLOBIN 13.9 g/dL (13.0-17.5); LYMPH # 0.8 x10^3/uL (1.0-4.8); LYMPH % 9 % (24-48); MEAN CORPUSCULAR HEMOGLOBIN 32 pg (25-35); MEAN CORPUSCULAR HGB CONC 35 g/dL (31-37); MEAN CORPUSCULAR VOLUME 93 fL (79-100); MONO # 0.4 x10^3/uL (0.0-1.1); MONO % 4 % (0-9); NEUT # 8.4 x10^3/uL (1.8-7.7); NEUT % 86 % (31-73); PLATELET COUNT 183 x10^3/uL (140-400); RED BLOOD COUNT 4.33 x10^6/uL (4.30-5.70); RED CELL DISTRIBUTION WIDTH 12.8 % (11.5-14.5); WHITE BLOOD COUNT 9.7 x10^3/uL (4.0-11.0)
[2021-02-09 16:20] LABS: CALCIUM 8.9 mg/dL (8.5-10.1); CREATININE 1.3 mg/dL (0.7-1.3); GFR 55.2; POTASSIUM 4.4 mmol/L (3.5-5.1)
--- NOTE | 2021-02-09 16:22 | RAD ---
Exam: Chest one view INDICATION: Pain TECHNIQUE: Frontal view of the chest Comparisons: 05/06/2020 FINDINGS: The cardiomediastinal silhouette and pulmonary vessels are within normal limits. The lung and pleural spaces are clear. IMPRESSION: No acute cardiopulmonary process. Electronically signed by: Dandy Correa MD (02/09/2021 4:19 PM) MANDEEP
[2021-02-09 16:26] LABS: ALBUMIN 4.2 g/dL (3.4-5.0); ALBUMIN/GLOBULIN RATIO 1.6 (1.0-1.7); TOTAL BILIRUBIN 0.6 mg/dL (0.2-1.0); TOTAL PROTEIN 6.8 g/dL (6.4-8.2)
--- NOTE | 2021-02-09 16:46 | RAD ---
EXAM: CT head without contrast INDICATION: Dizzy COMPARISON: None TECHNIQUE: Axial CT imaging through the head without intravenous contrast. Sagittal and coronal refor mats were obtained. One or more of the following individualized dose reduction techniques were utilized for this examinat ion: 1. Automated exposure control 2. Adjustment of the mA and/or kV according to patient size 3. Use of iterative reconstruction technique. FINDINGS: The ventricles and sulci are prominent. Erickson-white matter differentiation is maintained. There is no intracranial hemorrhage, acute infarct, or mass lesion. The calvarium is intact. Visualized paranasal sinuses are clear. There are surgical changes of the left mastoid air cells and opacification of the remaining inferior left mastoid air cells. Globes and orbits are intact. IMPRESSION: No acute intracranial abnormality. Electronically signed by: Karyna Street MD (02/09/2021 4:43 PM) [id number]
[2021-02-09 16:48] LABS: % BANDS 1 % (0-9); % EOS 1 % (0-5); % LYMPHS 9 % (24-48); % MONOS 3 % (0-10); % SEGS 86 % (35-66); PLT ESTIMATE ADEQUATE (ADEQUATE)
[2021-02-09] MEDS ORDERED: MORPHINE SULFATE 2 MG/ML VIAL. IV PRN (17:15)
[2021-02-09] MEDS ORDERED: ONDANSETRON PF 4 MG/2 ML VIAL. IV PRN (17:15)
--- NOTE | 2021-02-09 18:53 | EKG ---
[facility] [address] [place] [address] Test Date: 2021-02-09 Test Time: 15:50:32 Pat Name: JEAAN ARSHAD Department: Room: Gender: M Industrial Cook: : 1955 Requested By: MARCY UP Order Number: [id number] Reading MD: Measurements Intervals [place] Rate: 62 P: 40 MI: 146 QRS: -29 QRSD: 86 T: 59 QT: 366 QTc: 373 Interpretive Statements SINUS RHYTHM LEFTWARD AXIS LOW LIMB LEAD VOLTAGE QRS(T) CONTOUR ABNORMALITY CONSISTENT WITH ANTERIOR INFARCT AGE UNDETERMINED ABNORMAL ECG RI6.01 No previous ECG available for comparison
--- NOTE | 2021-02-09 19:12 | PDOC1 ---
History and Physical Date of Admission Date of Admission DATE: 02/09/21 TIME: 19:12 Identification/Chief Complaint Chief Complaint nausea and chest pain Source Source: Chart review, Patient History of Present Illness History of Present Illness Mr. Wray is a 65-year-old male admit for chest pain, nausea and dizziness at approximately 11:00 this morning. Patient has a history of Mnire's disease and has not had any bouts of dizziness, then wretching and vomiting, which can happen to him sometimes. Then he had chest pain, and was feeling more similar to when he had a STEMI here in April of 2020. . He had LAD stent, needed balloon pump and was very ill, his Ef was 20% then, and has improved now to 50% with rehab, and he can exercise well now. . Patient did take nitroglycerin with some relief. Patient states since that time his dizziness has subsided as well as his chest pain. At no time did the patient have any focal neurological weakness or sensory deficit. Additionally he denies any slurring of her speech or strokelike symptoms otherwise. He is awake, alert and resting comfortably now. he is retired [employer], Past Medical History Cardiovascular: CAD, CHF, HTN CENTRAL NERVOUS SYSTEM: Other Hepatobiliary: No pertinent hx Psych: No pertinent hx Musculoskeletal: low back pain, Osteoarthritis Rheumatologic: No pertinent hx ENT: No pertinent hx Renal/: No pertinent hx Endocrine: No pertinent hx Dermatology: No pertinent hx Past Surgical History Past Surgical History: Total hip replacement Family History Family History: Hypertension Social History Smoke: No ALCOHOL: rare Current Problem List Problem List Problems Medical Problems: (1) Chest pain Status: Acute Current Medications Current Medications Current Medications Aspirin (Aspirin Chewable) 324 mg 1X ONCE PO Last administered on 02/09/21at 16:32; Start 02/09/21 at 16:00; Stop 02/09/21 at 16:01; Status DC Ondansetron HCl (Zofran) 4 mg PRN Q8HRS PRN IV NAUSEA/VOMITING; Start 02/09/21 at 17:15; Stop 02/10/21 at 17:14 Morphine Sulfate (Morphine Sulfate) 2 mg PRN Q2HR PRN IV PAIN; Start 02/09/21 at 17:15; Stop 02/10/21 at 17:14 Active Scripts Active Lisinopril 2.5 Mg Tablet 1 Tab PO DAILY 30 Days Metoprolol Succinate ( Xl ) (Metoprolol Succinate) 25 Mg Tab.er.24h 1 Tab PO DAILY 30 Days Klor-Con 10 (Potassium Chloride) 10 Meq Tablet.er 10 Meq PO DAILYWBKFT 30 Days Furosemide 20 Mg Tablet 20 Mg PO DAILY 30 Days Atorvastatin Calcium 20 Mg Tablet 40 Mg PO QHS 30 Days Brilinta (Ticagrelor) 90 Mg Tablet 90 Mg PO BID 30 Days Aspirin Ec (Aspirin) 81 Mg Tablet.dr 81 Mg PO DAILYWBKFT 30 Days Reported D3 + K2 Dots 1,000 Units Tab (Vitamin D3/Vitamin K2) 1 Each Tab.rapdis 1 Tab PO HS 30 Days Multi Vitamin Daily (Multivitamin) 1 Each Tablet 1 Tab PO HS 30 Days Pepcid (Famotidine) 20 Mg Tablet 20 Mg PO BID Zoloft (Sertraline Hcl) 50 Mg Tablet 1 Tab PO HS Rapaflo (Silodosin) 8 Mg Capsule 1 Cap PO HS Allergies Allergies: Coded Allergies: No Known Drug Allergies (Unverified , 05/05/20) ROS General: No: Chills, Night Sweats, Fatigue, Malaise, Appetite, Other PSYCHOLOGICAL ROS: No: Anxiety, Behavioral Disorder, Concentration difficultie, Decreased libido, Depression, Disorientation, Hallucinations, Hostility, Irritablity, Memory difficulties, Mood Swings, Obsessive thoughts, Suicidal ideation, Other HEENT: No: Heacaches, Visual Changes, Hearing change, Nasal congestion, Nasal discharge, Oral lesions, Sinus pain, Sore Throat, Epistaxis, Sneezing, Snoring, Tinnitus, Vertigo, Vocal changes, Other Respiratory: No: Cough, Hemoptysis, Orthopnea, Pleuritic Pain, Shortness of breath, SOB with excertion, Sputum Changes, Stridor, Tachypnea, Wheezing, Other Cardiovascular: yes Chest Pain; No Palpitations, No Orthopnea, No Paroxysmal Noc. Dyspnea, No Edema, No Lt Headedness, No Other Gastrointestinal: Yes Nausea; No Vomiting, No Abdominal Pain, No Diarrhea, No Constipation, No Melena, No Hematochezia, No Other Genitourinary: No Dysuria, No Frequency, No Incontinence, No Hematuria, No Retention, No Discharge, No Urgency, No Pain, No Flank Pain, No Other, No , No , No , No , No , No , No Musculoskeletal: Yes Joint Pain, Yes Joint Stiffness (neck, back, left hip, 120% service connected to [employer] for these); No Gait Disturbance, No Joint Swelling, No Muscle Pain, No Muscular Weakness, No Pain In:, No Swelling In:, No Other Neurological: Yes Dizziness Skin: No Dry Skin, No Eczema, No Hair Changes, No Lumps, No Mole Changes, No Mottling, No Nail Changes, No Pruritus, No Rash, No Skin Lesion Changes, No Other, No Acne Physical Exam General: Alert, Oriented X3, No acute distress HEENT: Atraumatic, PERRLA Lungs: Clear to auscultation Heart: RRR, no thrills, no gallops, no murmurs Abdomen: Normal bowel sounds, Soft Extremities: No cyanosis, No edema Skin: No breakdown Neuro: Normal speech, Sensation intact, Cranial nerves 3-12 NL Psych/Mental Status: Mental status NL, Mood NL Vitals Vitals Vital Signs Date Time Temp Pulse Resp B/P (MAP) Pulse Ox O2 Delivery O2 Flow Rate FiO2 02/09/21 18:59 53 18 106/54 (71) 100 Room Air 02/09/21 15:48 98.6 98.6 Labs Labs Laboratory Tests Test 02/09/21 15:50 White Blood Count 9.7 x10^3/uL (4.0-11.0) Red Blood Count 4.33 x10^6/uL (4.30-5.70) Hemoglobin 13.9 g/dL (13.0-17.5) Hematocrit 40.1 % (39.0-53.0) Mean Corpuscular Volume 93 fL (79-100) Mean Corpuscular Hemoglobin 32 pg (25-35) Mean Corpuscular Hemoglobin Concent 35 g/dL (31-37) Red Cell Distribution Width 12.8 % (11.5-14.5) Platelet Count 183 x10^3/uL (140-400) Neutrophils (%) (Auto) 86 % (31-73) Lymphocytes (%) (Auto) 9 % (24-48) Monocytes (%) (Auto) 4 % (0-9) Eosinophils (%) (Auto) 0 % (0-3) Basophils (%) (Auto) 0 % (0-3) Neutrophils # (Auto) 8.4 x10^3/uL (1.8-7.7) Lymphocytes # (Auto) 0.8 x10^3/uL (1.0-4.8) Monocytes # (Auto) 0.4 x10^3/uL (0.0-1.1) Eosinophils # (Auto) 0.0 x10^3/uL (0.0-0.7) Basophils # (Auto) 0.0 x10^3/uL (0.0-0.2) Segmented Neutrophils % 86 % (35-66) Band Neutrophils % 1 % (0-9) Lymphocytes % 9 % (24-48) Monocytes % 3 % (0-10) Eosinophils % 1 % (0-5) Platelet Estimate Adequate (ADEQUATE) Sodium Level 143 mmol/L (136-145) Potassium Level 4.4 mmol/L (3.5-5.1) Chloride Level 108 mmol/L (98-107) Carbon Dioxide Level 25 mmol/L (21-32) Anion Gap 10 (6-14) Blood Urea Nitrogen 19 mg/dL (8-26) Creatinine 1.3 mg/dL (0.7-1.3) Estimated GFR (Cockcroft-Gault) 55.2 BUN/Creatinine Ratio 15 (6-20) Glucose Level 117 mg/dL (70-99) Calcium Level 8.9 mg/dL (8.5-10.1) Total Bilirubin 0.6 mg/dL (0.2-1.0) Aspartate Amino Transf (AST/SGOT) 26 U/L (15-37) Alanine Aminotransferase (ALT/SGPT) 36 U/L (16-63) Alkaline Phosphatase 75 U/L (46-116) Troponin I Quantitative < 0.017 ng/mL (0.000-0.055) OO-Kfq-U-Type Natriuretic Peptide 1681 pg/mL (0-124) Total Protein 6.8 g/dL (6.4-8.2) Albumin 4.2 g/dL (3.4-5.0) Albumin/Globulin Ratio 1.6 (1.0-1.7) Lipase 100 U/L (73-393) Laboratory Tests Test 02/09/21 15:50 White Blood Count 9.7 x10^3/uL (4.0-11.0) Red Blood Count 4.33 x10^6/uL (4.30-5.70) Hemoglobin 13.9 g/dL (13.0-17.5) Hematocrit 40.1 % (39.0-53.0) Mean Corpuscular Volume 93 fL (79-100) Mean Corpuscular Hemoglobin 32 pg (25-35) Mean Corpuscular Hemoglobin Concent 35 g/dL (31-37) Red Cell Distribution Width 12.8 % (11.5-14.5) Platelet Count 183 x10^3/uL (140-400) Neutrophils (%) (Auto) 86 % (31-73) Lymphocytes (%) (Auto) 9 % (24-48) Monocytes (%) (Auto) 4 % (0-9) Eosinophils (%) (Auto) 0 % (0-3) Basophils (%) (Auto) 0 % (0-3) Neutrophils # (Auto) 8.4 x10^3/uL (1.8-7.7) Lymphocytes # (Auto) 0.8 x10^3/uL (1.0-4.8) Monocytes # (Auto) 0.4 x10^3/uL (0.0-1.1) Eosinophils # (Auto) 0.0 x10^3/uL (0.0-0.7) Basophils # (Auto) 0.0 x10^3/uL (0.0-0.2) Segmented Neutrophils % 86 % (35-66) Band Neutrophils % 1 % (0-9) Lymphocytes % 9 % (24-48) Monocytes % 3 % (0-10) Eosinophils % 1 % (0-5) Platelet Estimate Adequate (ADEQUATE) Sodium Level 143 mmol/L (136-145) Potassium Level 4.4 mmol/L (3.5-5.1) Chloride Level 108 mmol/L (98-107) Carbon Dioxide Level 25 mmol/L (21-32) Anion Gap 10 (6-14) Blood Urea Nitrogen 19 mg/dL (8-26) Creatinine 1.3 mg/dL (0.7-1.3) Estimated GFR (Cockcroft-Gault) 55.2 BUN/Creatinine Ratio 15 (6-20) Glucose Level 117 mg/dL (70-99) Calcium Level 8.9 mg/dL (8.5-10.1) Total Bilirubin 0.6 mg/dL (0.2-1.0) Aspartate Amino Transf (AST/SGOT) 26 U/L (15-37) Alanine Aminotransferase (ALT/SGPT) 36 U/L (16-63) Alkaline Phosphatase 75 U/L (46-116) Troponin I Quantitative < 0.017 ng/mL (0.000-0.055) YZ-Lqp-T-Type Natriuretic Peptide 1681 pg/mL (0-124) Total Protein 6.8 g/dL (6.4-8.2) Albumin 4.2 g/dL (3.4-5.0) Albumin/Globulin Ratio 1.6 (1.0-1.7) Lipase 100 U/L (73-393) VTE Prophylaxis Ordered VTE Prophylaxis Devices: Yes VTE Pharmacological Prophylaxi: Yes Assessment/Plan Assessment/Plan chest pain, angina, on CAD nausea and vomiting with chest pain, poss viral GI prior tobacco use, chronic systolic CHF , imrpoved, Diabetes type 2, diet Hypertension Dyslipidemia Justifications for Admission Other Justification DENISHA DUKES MD Feb 09, 2021 19:12
[2021-02-09 19:50] VITALS: BP 113/68
--- NOTE | 2021-02-09 20:00 | NUR ---
Pt arrived to room 206 per cart accompanied by , pt ambulated to bed from cart with standby assist. Tele monitor applied vs obtained and stable assessment completed pt denied pain at this time poc explained call light in reach will resume care and continue to monitor pt.
[2021-02-09] MEDS ORDERED: LISI10TA16 PO (20:33)
[2021-02-09] MEDS ORDERED: CETI10TA74 PO (20:33)
[2021-02-09] MEDS ORDERED: LIPITOR80 MG PO (20:33)
[2021-02-09] MEDS ORDERED: METO25TA4 PO (20:33)
[2021-02-09] MEDS ORDERED: SPIR25TA5 PO (20:33)
[2021-02-09] MEDS ORDERED: ATORVASTATIN CALCIUM 40 MG TABLET. PO ONE (21:00)
[2021-02-09] MEDS ORDERED: LISINOPRIL 10 MG TABLET PO SCH (21:00)
[2021-02-09] MEDS ORDERED: TAMSULOSIN 0.4 MG CAP.ER.24H. PO SCH (21:00)
[2021-02-09] MEDS ORDERED: SERTRALINE 50 MG TABLET. PO SCH (21:00)
[2021-02-09] MEDS ORDERED: ATORVASTATIN CALCIUM 20 MG TABLET PO SCH (21:00)
[2021-02-09] MEDS ORDERED: FAMOTIDINE 20 MG TABLET. PO SCH (21:00)
[2021-02-09] MEDS ORDERED: ATORVASTATIN CALCIUM 40 MG TABLET. PO SCH (21:19)
[2021-02-09] MEDS: TICAGRELOR 90 MG TABLET. PO SCH (21:36)
[2021-02-09] MEDS: MULTIVITAMIN with MINERAL TABLET. PO SCH (21:37)
[2021-02-09 22:48] VITALS: BP 96/54
[2021-02-10 03:30] VITALS: BP 101/50
[2021-02-10] MEDS ORDERED: FAMOTIDINE 20 MG TABLET. PO PRN (05:15)
--- NOTE | 2021-02-10 06:22 | NUR ---
Pt called out stating his vertigo is starting pt described it as the room spinning and his hands are tingling with nausea,pt dry hiving and sweaty,zofran given and cool wash cloth applied to pt, pt states it that he is feeling better now. Will monitor pt.Call light in reach pt reminded to call for assistance oob.
[2021-02-10 07:00] VITALS: BP 101/50
[2021-02-10] MEDS ORDERED: ASPIRIN ENTERIC COATED 81 MG TABLET.DR. PO SCH (08:00)
[2021-02-10] MEDS ORDERED: POTASSIUM CHLORIDE 10 MEQ TABLET.ER. PO SCH (08:00)
[2021-02-10] MEDS ORDERED: LISINOPRIL 5 MG TABLET. PO SCH ×2 (09:00→21:00)
[2021-02-10] MEDS ORDERED: FUROSEMIDE 20 MG TABLET PO SCH (09:00)
[2021-02-10] MEDS ORDERED: CETIRIZINE HCL 10 MG TABLET. PO SCH (09:00)
[2021-02-10] MEDS ORDERED: METOPROLOL SUCC 24HR ER 25 MG TAB.ER.24H. PO SCH (09:00)
[2021-02-10] MEDS ORDERED: METOPROLOL TART IMMED RELEASE 25 MG TABLET. PO SCH (09:00)
[2021-02-10] MEDS ORDERED: SPIRONOLACTONE 25 MG TABLET PO SCH (09:00)
[2021-02-10] MEDS: TICAGRELOR 90 MG TABLET. PO SCH (09:20)
[2021-02-10] MEDS: MULTIVITAMIN with MINERAL TABLET. PO SCH (09:20)
[2021-02-10 11:00] VITALS: BP 99/53
--- NOTE | 2021-02-10 11:48 | NUR ---
SS following for discharge planning. SS reviewed pt chart and discussed with pt RN. Pt is from home with spouse and is currently on room air. Discharge plan is currently to home when medically ready. SS will continue to follow for discharge planning.
--- NOTE | 2021-02-10 13:03 | PDOC ---
[employer] PROGRESS NOTE Date of Service DOS: DATE: 02/10/21 TIME: 12:48 Chief Complaint Chief Complaint chest pain, angina, on CAD nausea and vomiting with chest pain, poss viral GI menieres disease, intermittent bouts of vertigo prior tobacco use, chronic systolic CHF , imrpoved, Diabetes type 2, diet Hypertension Dyslipidemia History of Present Illness History of Present Illness feels well, CV workup neg some PVC when his vertigo happenes, will consult CV, he had prior vest monitor, may need home monitoring, CV follow up Vitals/I&O Vitals/I&O: Vital Signs Date Time Temp Pulse Resp B/P (MAP) Pulse Ox O2 Delivery O2 Flow Rate FiO2 02/10/21 11:00 97.8 54 20 99/53 (68) 98 Room Air 97.8 I & O 02/09/21 02/09/21 02/10/21 15:00 23:00 07:00 Intake Total 250 ml 100 ml Output Total 400 ml 200 ml Balance -150 ml -100 ml Physical Exam General: Alert, Oriented X3, No acute distress Heart: Regular rate Lungs: Clear Abdomen: Normal bowel sounds, Soft Extremities: No cyanosis, No edema Skin: No breakdown Labs Labs: Laboratory Tests Test 02/09/21 15:50 02/09/21 18:50 02/09/21 21:29 White Blood Count 9.7 x10^3/uL (4.0-11.0) Red Blood Count 4.33 x10^6/uL (4.30-5.70) Hemoglobin 13.9 g/dL (13.0-17.5) Hematocrit 40.1 % (39.0-53.0) Mean Corpuscular Volume 93 fL (79-100) Mean Corpuscular Hemoglobin 32 pg (25-35) Mean Corpuscular Hemoglobin Concent 35 g/dL (31-37) Red Cell Distribution Width 12.8 % (11.5-14.5) Platelet Count 183 x10^3/uL (140-400) Neutrophils (%) (Auto) 86 % (31-73) Lymphocytes (%) (Auto) 9 % (24-48) Monocytes (%) (Auto) 4 % (0-9) Eosinophils (%) (Auto) 0 % (0-3) Basophils (%) (Auto) 0 % (0-3) Neutrophils # (Auto) 8.4 x10^3/uL (1.8-7.7) Lymphocytes # (Auto) 0.8 x10^3/uL (1.0-4.8) Monocytes # (Auto) 0.4 x10^3/uL (0.0-1.1) Eosinophils # (Auto) 0.0 x10^3/uL (0.0-0.7) Basophils # (Auto) 0.0 x10^3/uL (0.0-0.2) Segmented Neutrophils % 86 % (35-66) Band Neutrophils % 1 % (0-9) Lymphocytes % 9 % (24-48) Monocytes % 3 % (0-10) Eosinophils % 1 % (0-5) Platelet Estimate Adequate (ADEQUATE) Sodium Level 143 mmol/L (136-145) Potassium Level 4.4 mmol/L (3.5-5.1) Chloride Level 108 mmol/L (98-107) Carbon Dioxide Level 25 mmol/L (21-32) Anion Gap 10 (6-14) Blood Urea Nitrogen 19 mg/dL (8-26) Creatinine 1.3 mg/dL (0.7-1.3) Estimated GFR (Cockcroft-Gault) 55.2 BUN/Creatinine Ratio 15 (6-20) Glucose Level 117 mg/dL (70-99) Calcium Level 8.9 mg/dL (8.5-10.1) Total Bilirubin 0.6 mg/dL (0.2-1.0) Aspartate Amino Transf (AST/SGOT) 26 U/L (15-37) Alanine Aminotransferase (ALT/SGPT) 36 U/L (16-63) Alkaline Phosphatase 75 U/L (46-116) Troponin I Quantitative < 0.017 ng/mL (0.000-0.055) < 0.017 ng/mL (0.000-0.055) < 0.017 ng/mL (0.000-0.055) AL-Gfj-J-Type Natriuretic Peptide 1681 pg/mL (0-124) Total Protein 6.8 g/dL (6.4-8.2) Albumin 4.2 g/dL (3.4-5.0) Albumin/Globulin Ratio 1.6 (1.0-1.7) Lipase 100 U/L (73-393) Assessment and Plan Assessmemt and Plan Problems Medical Problems: (1) Chest pain Status: Acute Comment Review of Relevant I have reviewed the following items francisca (where applicable) has been applied. Medications: Current Medications Medications (Trade) Dose Ordered Sig/Akin Route PRN Reason Start Time Stop Time Status Last Admin Dose Admin Aspirin (Aspirin Chewable) 324 mg 1X ONCE PO 02/09/21 16:00 02/09/21 16:01 DC 02/09/21 16:32 Ondansetron HCl (Zofran) 4 mg PRN Q8HRS PRN IV NAUSEA/VOMITING 02/09/21 17:15 02/10/21 17:14 02/10/21 06:21 Aspirin (Ecotrin) 81 mg DAILYWBKFT PO 02/10/21 08:00 02/10/21 09:20 Metoprolol Succinate (Toprol Xl) 25 mg DAILY PO 02/10/21 09:00 02/10/21 09:21 Sertraline HCl (Zoloft) 50 mg HS PO 02/09/21 21:00 02/09/21 21:36 Ticagrelor (Brilinta) 90 mg BID PO 02/09/21 21:00 02/10/21 09:20 Multivitamins (Thera M Plus) 1 tab HS PO 02/09/21 21:00 02/10/21 09:20 Tamsulosin HCl (Flomax) 0.4 mg QHS PO 02/09/21 21:00 02/09/21 21:37 Cetirizine HCl (ZyrTEC) 10 mg DAILY PO 02/10/21 09:00 02/10/21 09:20 Lisinopril (Prinivil) 10 mg HS PO 02/09/21 21:00 02/09/21 21:37 Spironolactone (Aldactone) 12.5 mg DAILY PO 02/10/21 09:00 02/10/21 09:20 Atorvastatin Calcium (Lipitor) 80 mg QHS PO 02/09/21 21:19 02/09/21 21:36 Justifications for Admission Other Justification DENISHA DUKES MD Feb 10, 2021 12:50
--- NOTE | 2021-02-10 13:28 | PDOC2 ---
HELLEN MARIA EXPANDING MACHINE OPERATOR 02/10/21 1328: CARDIAC CONSULT DATE OF CONSULT Date of Consult DATE: 02/10/21 TIME: 12:55 REASON FOR CONSULT Reason for Consult: nausea, vertigo, prior STEMI, irregular HR REFERRING PHYSICIAN Referring Physician: Marty SOURCE Source: Chart review, Patient HISTORY OF PRESENT ILLNESS HISTORY OF PRESENT ILLNESS This is a pleasant 65 yo male admitted for complains of chest pain and vertigo. Reports that yesterday he had a bad case of vertigo. He does have hx of Menieres. He was having nausea and vomiting. His vertigo attack lasted for about 2 hours. He does take spironolactone for it changed from triamterene. Reports that he had sharp shooting chest pain after his nausea and vomiting. Prior to this he denies any NEWSOME or exertional chest pain and he has been taking his routine medications including ASA, brilinta, lipitor. He had ICM and STEMI with stents and his EFsignificantly recovered after med adjustment and his [facility]. He has been following up with Dr. Moura at the [place]. He has been seen in our office as well. This morning he had another attack of vertigo and does see a [facility] specialist for this. He was noted with irregular rhythm this morning hence his discharge was delayed for later today pending cardiology consult. He has had his last Pfizer covid-19 vaccine 11/2020 and no prior covid-19 exposure. PAST MEDICAL HISTORY Cardiovascular: CAD, CHF, HTN, MO, Hyperlipidemia Pulmonary: No pertinent hx CENTRAL NERVOUS SYSTEM: Other (No pertinent history) GI: GERD Heme/Onc: No pertinent hx Hepatobiliary: No pertinent hx Psych: No pertinent hx Musculoskeletal: Osteoarthritis Rheumatologic: No pertinent hx Infectious disease: No pertinent hx ENT: Other (Menieres) Renal/: No pertinent hx Endocrine: No pertinent hx Dermatology: No pertinent hx PAST SURGICAL HISTORY Past Surgical History: Other (PCI) SOCIAL HISTORY Smoke: # pack years (cigars) ALCOHOL: occassional Drugs: None Lives: with Family CURRENT MEDICATIONS CURRENT MEDICATIONS Current Medications Medications (Trade) Dose Ordered Sig/Akin Route PRN Reason Start Time Stop Time Status Last Admin Dose Admin Aspirin (Aspirin Chewable) 324 mg 1X ONCE PO 02/09/21 16:00 02/09/21 16:01 DC 02/09/21 16:32 Ondansetron HCl (Zofran) 4 mg PRN Q8HRS PRN IV NAUSEA/VOMITING 02/09/21 17:15 02/10/21 17:14 02/10/21 06:21 Aspirin (Ecotrin) 81 mg DAILYWBKFT PO 02/10/21 08:00 02/10/21 09:20 Metoprolol Succinate (Toprol Xl) 25 mg DAILY PO 02/10/21 09:00 02/10/21 09:21 Sertraline HCl (Zoloft) 50 mg HS PO 02/09/21 21:00 02/09/21 21:36 Ticagrelor (Brilinta) 90 mg BID PO 02/09/21 21:00 02/10/21 09:20 Multivitamins (Thera M Plus) 1 tab HS PO 02/09/21 21:00 02/10/21 09:20 Tamsulosin HCl (Flomax) 0.4 mg QHS PO 02/09/21 21:00 02/09/21 21:37 Cetirizine HCl (ZyrTEC) 10 mg DAILY PO 02/10/21 09:00 02/10/21 09:20 Lisinopril (Prinivil) 10 mg HS PO 02/09/21 21:00 02/09/21 21:37 Spironolactone (Aldactone) 12.5 mg DAILY PO 02/10/21 09:00 02/10/21 09:20 Atorvastatin Calcium (Lipitor) 80 mg QHS PO 02/09/21 21:19 02/09/21 21:36 ALLERGIES ALLERGIES: Coded Allergies: No Known Drug Allergies (Unverified , 05/05/20) ROS Review of System 14 point ROS evaluated with pertinent positives noted per HPI PHYSICAL EXAM General: Alert, Oriented X3, Cooperative, No acute distress HEENT: Atraumatic, Mucous membr. moist/pink Lungs: Clear to auscultation, Normal air movement Heart: Regular rate (SR), Normal S1, Normal S2, No murmurs Abdomen: Soft, No tenderness Extremities: No cyanosis, No edema Skin: No breakdown, No significant lesion Neuro: Normal speech, Sensation intact Psych/Mental Status: Mental status NL, Mood NL MUSCULOSKELETAL: Osteoarthritic changes both hands VITALS/I&O VITALS/I&O: Vital Signs Date Time Temp Pulse Resp B/P (MAP) Pulse Ox O2 Delivery O2 Flow Rate FiO2 02/10/21 11:00 97.8 54 20 99/53 (68) 98 Room Air 97.8 I & O 02/09/21 02/09/21 02/10/21 15:00 23:00 07:00 Intake Total 250 ml 100 ml Output Total 400 ml 200 ml Balance -150 ml -100 ml LABS Lab: Laboratory Tests Test 02/09/21 15:50 02/09/21 18:50 02/09/21 21:29 White Blood Count 9.7 x10^3/uL (4.0-11.0) Red Blood Count 4.33 x10^6/uL (4.30-5.70) Hemoglobin 13.9 g/dL (13.0-17.5) Hematocrit 40.1 % (39.0-53.0) Mean Corpuscular Volume 93 fL (79-100) Mean Corpuscular Hemoglobin 32 pg (25-35) Mean Corpuscular Hemoglobin Concent 35 g/dL (31-37) Red Cell Distribution Width 12.8 % (11.5-14.5) Platelet Count 183 x10^3/uL (140-400) Neutrophils (%) (Auto) 86 % (31-73) H Lymphocytes (%) (Auto) 9 % (24-48) L Monocytes (%) (Auto) 4 % (0-9) Eosinophils (%) (Auto) 0 % (0-3) Basophils (%) (Auto) 0 % (0-3) Neutrophils # (Auto) 8.4 x10^3/uL (1.8-7.7) H Lymphocytes # (Auto) 0.8 x10^3/uL (1.0-4.8) L Monocytes # (Auto) 0.4 x10^3/uL (0.0-1.1) Eosinophils # (Auto) 0.0 x10^3/uL (0.0-0.7) Basophils # (Auto) 0.0 x10^3/uL (0.0-0.2) Segmented Neutrophils % 86 % (35-66) H Band Neutrophils % 1 % (0-9) Lymphocytes % 9 % (24-48) L Monocytes % 3 % (0-10) Eosinophils % 1 % (0-5) Platelet Estimate Adequate (ADEQUATE) Sodium Level 143 mmol/L (136-145) Potassium Level 4.4 mmol/L (3.5-5.1) Chloride Level 108 mmol/L (98-107) H Carbon Dioxide Level 25 mmol/L (21-32) Anion Gap 10 (6-14) Blood Urea Nitrogen 19 mg/dL (8-26) Creatinine 1.3 mg/dL (0.7-1.3) Estimated GFR (Cockcroft-Gault) 55.2 BUN/Creatinine Ratio 15 (6-20) Glucose Level 117 mg/dL (70-99) H Calcium Level 8.9 mg/dL (8.5-10.1) Total Bilirubin 0.6 mg/dL (0.2-1.0) Aspartate Amino Transferase (AST) 26 U/L (15-37) Alanine Aminotransferase (ALT) 36 U/L (16-63) Alkaline Phosphatase 75 U/L (46-116) Troponin I Quantitative < 0.017 ng/mL (0.000-0.055) < 0.017 ng/mL (0.000-0.055) < 0.017 ng/mL (0.000-0.055) PV-Ial-Q-Type Natriuretic Peptide 1681 pg/mL (0-124) H Total Protein 6.8 g/dL (6.4-8.2) Albumin 4.2 g/dL (3.4-5.0) Albumin/Globulin Ratio 1.6 (1.0-1.7) Lipase 100 U/L (73-393) Laboratory Tests 02/09/21 15:50 Laboratory Tests 02/09/21 15:50 ECHOCARDIOGRAM ECHOCARDIOGRAM <Conclusion> The Left Ventricle is mildly dilated. Left ventricle systolic function is severely impaired. The Ejection Fraction is 20-25%. There is apical akinesis There is severe hypokinesis of the distal anterior and mid to distal septal busch. Doppler and Color Flow revealed no significant aortic regurgitation. There is no significant aortic valvular stenosis. There is no evidence of mitral valve prolapse but the anterior mitral valve leaflet is redundant. Doppler and Color Flow revealed trace tricuspid regurgitation. There is mild pulmonary hypertension. The PA pressure was estimated at 33 mmHg. DATE: 05/06/20 0937 ASSESSMENT/PLAN ASSESSMENT/PLAN 1. Vertigo due to menieres 2. Nausea and vomiting due above 3. Atypical chest pain: noncardiac likely due to intractable vomiting. Trops nml and no EKG changes. 4. HTN: controlled 5. HLP 6. CAD: STEMI in 04/2020 and had PCI/ERICKA to LAD then staged to RCA 7. ICM: noted recovered 07/2020 with EF at 50% Recommendations 1. Continue ASA and brilinta. Follow up with [facility] specialist in regards to menieres 2. Continue Aldactone, metoprolol, and statin 3. Will check TSH 4. Anticipate DC this afternoon, Follow up as outpt and will consider for outpt stress test if symptoms persist BRITTANIE GRIFFIN MD 02/10/21 9197: CARDIAC CONSULT ASSESSMENT/PLAN ASSESSMENT/PLAN Patient seen and evaluated. I agree with our nurse practitioners assessment and plan. Vertigo due to menieres. Associated with nausea and vomiting as above. Now re solved. Atypical chest pain: Normal troponin and no ischemic EKG changes. History of coronary disease with a STEMI last year and stenting to the LAD and RCA. We will continue with baseline medications including aspirin Brilinta. [facility] Discussed with the patient and his family. HTN: controlled HLP. Continue present treatment. ICM: noted recovered 07/2020 with EF at 50% HELLEN MARIA EXPANDING MACHINE OPERATOR Feb 10, 2021 13:28 BRITTANIE GRIFFIN MD Feb 10, 2021 17:37
--- NOTE | 2021-02-10 14:15 | PDOC3 ---
Discharge Summary Visit Information Date of Admission: Feb 09, 2021 Date of Discharge: Feb 10, 2021 Final Diagnosis chest pain, atypical of cardiac, iwth Hx of CAD , STEMI 04/2020 nausea and vomiting with chest pain, poss viral GI menieres disease, intermittent bouts of vertigo prior tobacco use, chronic systolic CHF , imrpoved, Diabetes type 2, diet Hypertension Dyslipidemia Problems Medical Problems: (1) Chest pain Status: Acute Brief Hospital Course Allergies Allergies Coded Allergies Type Severity Reaction Last Updated Verified No Known Drug Allergies 05/05/20 No Vital Signs Vital Signs Date Time Temp Pulse Resp B/P (MAP) Pulse Ox O2 Delivery O2 Flow Rate FiO2 02/10/21 11:00 97.8 54 20 99/53 (68) 98 Room Air 97.8 Lab Results Laboratory Tests Test 02/09/21 15:50 02/09/21 18:50 02/09/21 21:29 White Blood Count 9.7 x10^3/uL (4.0-11.0) Red Blood Count 4.33 x10^6/uL (4.30-5.70) Hemoglobin 13.9 g/dL (13.0-17.5) Hematocrit 40.1 % (39.0-53.0) Mean Corpuscular Volume 93 fL (79-100) Mean Corpuscular Hemoglobin 32 pg (25-35) Mean Corpuscular Hemoglobin Concent 35 g/dL (31-37) Red Cell Distribution Width 12.8 % (11.5-14.5) Platelet Count 183 x10^3/uL (140-400) Neutrophils (%) (Auto) 86 % (31-73) Lymphocytes (%) (Auto) 9 % (24-48) Monocytes (%) (Auto) 4 % (0-9) Eosinophils (%) (Auto) 0 % (0-3) Basophils (%) (Auto) 0 % (0-3) Neutrophils # (Auto) 8.4 x10^3/uL (1.8-7.7) Lymphocytes # (Auto) 0.8 x10^3/uL (1.0-4.8) Monocytes # (Auto) 0.4 x10^3/uL (0.0-1.1) Eosinophils # (Auto) 0.0 x10^3/uL (0.0-0.7) Basophils # (Auto) 0.0 x10^3/uL (0.0-0.2) Segmented Neutrophils % 86 % (35-66) Band Neutrophils % 1 % (0-9) Lymphocytes % 9 % (24-48) Monocytes % 3 % (0-10) Eosinophils % 1 % (0-5) Platelet Estimate Adequate (ADEQUATE) Sodium Level 143 mmol/L (136-145) Potassium Level 4.4 mmol/L (3.5-5.1) Chloride Level 108 mmol/L (98-107) Carbon Dioxide Level 25 mmol/L (21-32) Anion Gap 10 (6-14) Blood Urea Nitrogen 19 mg/dL (8-26) Creatinine 1.3 mg/dL (0.7-1.3) Estimated GFR (Cockcroft-Gault) 55.2 BUN/Creatinine Ratio 15 (6-20) Glucose Level 117 mg/dL (70-99) Calcium Level 8.9 mg/dL (8.5-10.1) Total Bilirubin 0.6 mg/dL (0.2-1.0) Aspartate Amino Transf (AST/SGOT) 26 U/L (15-37) Alanine Aminotransferase (ALT/SGPT) 36 U/L (16-63) Alkaline Phosphatase 75 U/L (46-116) Troponin I Quantitative < 0.017 ng/mL (0.000-0.055) < 0.017 ng/mL (0.000-0.055) < 0.017 ng/mL (0.000-0.055) NC-Ayg-C-Type Natriuretic Peptide 1681 pg/mL (0-124) Total Protein 6.8 g/dL (6.4-8.2) Albumin 4.2 g/dL (3.4-5.0) Albumin/Globulin Ratio 1.6 (1.0-1.7) Lipase 100 U/L (73-393) Laboratory Tests Test 02/09/21 15:50 02/09/21 18:50 02/09/21 21:29 White Blood Count 9.7 x10^3/uL (4.0-11.0) Red Blood Count 4.33 x10^6/uL (4.30-5.70) Hemoglobin 13.9 g/dL (13.0-17.5) Hematocrit 40.1 % (39.0-53.0) Mean Corpuscular Volume 93 fL (79-100) Mean Corpuscular Hemoglobin 32 pg (25-35) Mean Corpuscular Hemoglobin Concent 35 g/dL (31-37) Red Cell Distribution Width 12.8 % (11.5-14.5) Platelet Count 183 x10^3/uL (140-400) Neutrophils (%) (Auto) 86 % (31-73) Lymphocytes (%) (Auto) 9 % (24-48) Monocytes (%) (Auto) 4 % (0-9) Eosinophils (%) (Auto) 0 % (0-3) Basophils (%) (Auto) 0 % (0-3) Neutrophils # (Auto) 8.4 x10^3/uL (1.8-7.7) Lymphocytes # (Auto) 0.8 x10^3/uL (1.0-4.8) Monocytes # (Auto) 0.4 x10^3/uL (0.0-1.1) Eosinophils # (Auto) 0.0 x10^3/uL (0.0-0.7) Basophils # (Auto) 0.0 x10^3/uL (0.0-0.2) Segmented Neutrophils % 86 % (35-66) Band Neutrophils % 1 % (0-9) Lymphocytes % 9 % (24-48) Monocytes % 3 % (0-10) Eosinophils % 1 % (0-5) Platelet Estimate Adequate (ADEQUATE) Sodium Level 143 mmol/L (136-145) Potassium Level 4.4 mmol/L (3.5-5.1) Chloride Level 108 mmol/L (98-107) Carbon Dioxide Level 25 mmol/L (21-32) Anion Gap 10 (6-14) Blood Urea Nitrogen 19 mg/dL (8-26) Creatinine 1.3 mg/dL (0.7-1.3) Estimated GFR (Cockcroft-Gault) 55.2 BUN/Creatinine Ratio 15 (6-20) Glucose Level 117 mg/dL (70-99) Calcium Level 8.9 mg/dL (8.5-10.1) Total Bilirubin 0.6 mg/dL (0.2-1.0) Aspartate Amino Transf (AST/SGOT) 26 U/L (15-37) Alanine Aminotransferase (ALT/SGPT) 36 U/L (16-63) Alkaline Phosphatase 75 U/L (46-116) Troponin I Quantitative < 0.017 ng/mL (0.000-0.055) < 0.017 ng/mL (0.000-0.055) < 0.017 ng/mL (0.000-0.055) IU-Ftn-Q-Type Natriuretic Peptide 1681 pg/mL (0-124) Total Protein 6.8 g/dL (6.4-8.2) Albumin 4.2 g/dL (3.4-5.0) Albumin/Globulin Ratio 1.6 (1.0-1.7) Lipase 100 U/L (73-393) Brief Hospital Course Mr. Wray is a 65 old, retired , admitted for complains of chest pain and vertigo. first dizzy, then vomiting, then chest pain,. v Prior to this he denies any NEWSOME or exertional chest pain. He has been following up with Dr. Moura at the [place] after major STEMI event here last year, EF has improved, CV consult saw before DC, Discharge Information Condition at Discharge: Improved Follow Up: Weeks Disposition/Orders: D/C to Home Scheduled Aspirin (Aspirin Ec) 81 Mg Tablet., 81 MG PO DAILYWBKFT for CAD for 30 Days, #30 Prescribed by: MARCUS VELEZ MD on 05/12/20 1211 Last Action: Continued on 02/09/212012 by DENISHA DUKES Atorvastatin Calcium (Lipitor) 80 Mg Tablet, 80 MG PO HS for FOR CHOLESTEROL, #30 Ref 0 (Reported) Entered as Reported by: Lucy Rivas on 02/09/212032 Last Action: Converted on 02/09/212035 by Lucy Rivas Cetirizine Hcl (Zyrtec) 10 Mg Tablet, 1 TAB PO DAILY for , #30 Ref 2 (Reported) Entered as Reported by: Lucy Rivas on 02/09/212032 Last Action: Continued on 02/09/212035 by Lucy Rivas Lisinopril (Lisinopril) 10 Mg Tablet, 1 TAB PO HS for , #30 Ref 5 (Reported) Entered as Reported by: Lucy Rivas on 02/09/212032 Last Action: Continued on 02/09/212035 by Lucy Rivas Metoprolol Succinate (Metoprolol Succinate ( Xl )) 25 Mg Tab.er.24h, 1 TAB PO DAILY for CAD for 30 Days, #30 Ref 3 Prescribed by: HELLEN MARIA on 05/12/20 1312 Last Action: Continued on 02/09/212012 by DENISHA DUKES Multivitamin (Multi Vitamin Daily) 1 Each Tablet, 1 TAB PO HS for SUPLIMENT for 30 Days, #30 Ref 0 (Reported) Entered as Reported by: LUKAS CORRAL on 05/05/201838 Last Action: Converted on 02/09/212012 by DENISHA DUKES Sertraline Hcl (Zoloft) 50 Mg Tablet, 1 TAB PO HS for DEPRESSION, #30 Ref 2 (Reported) Entered as Reported by: LUKAS CORRAL on 05/05/201838 Last Action: Continued on 02/09/212012 by DENISHA DUKES Silodosin (Rapaflo) 8 Mg Capsule, 1 CAP PO HS for BPH, #30 Ref 5 (Reported) Entered as Reported by: LUKAS CORRAL on 05/05/201838 Last Action: Converted on 02/09/212012 by DENISHA DUKES Spironolactone (Spironolactone) 25 Mg Tablet, 0.5 TAB PO DAILY for , #90 Ref 1 (Reported) Entered as Reported by: Lucy Rivas on 02/09/212032 Last Action: Continued on 02/09/212035 by Lucy Rivas Ticagrelor (Brilinta) 90 Mg Tablet, 90 MG PO BID for CAD for 30 Days, #60 Ref 3 Prescribed by: HELLEN MARIA on 05/12/20 1312 Last Action: Continued on 02/09/212012 by DENISHA DUKES Vitamin D3/Vitamin K2 (D3 + K2 Dots 1,000 Units Tab) 1 Each Tab.rapdis, 1 TAB PO HS for SUPLIMENT for 30 Days, #30 Ref 0 (Reported) Entered as Reported by: LUKAS OCRRAL on 05/05/201838 Last Action: HELD on 02/09/212012 by DENISHA DUKES Scheduled PRN Famotidine (Pepcid) 20 Mg Tablet, 20 MG PO PRN BID PRN for , (Reported) Entered as Reported by: LUKAS CORRAL on 05/05/201838 Last Action: Edited on 02/09/212032 by Lucy Rivas Discontinued Medications Metoprolol Tartrate (Metoprolol Tartrate) 25 Mg Tablet, 0.5 TAB PO DAILY for , #180 Ref 1 (Reported) Entered as Reported by: Lucy Rivas on 02/09/212032 Last Taken: 12.5 mg on Unknown Date & Time Last Action: Continued on 02/09/212035 by Lucy Rivas Patient Instructions Patient Instructions pt seen and discussed today f/u [facility], CV at [facility] Justicifation of Admission Dx: Justifications for Admission: Justification of Admission Dx: Yes DC: Acute STEMI DENISHA DUKES MD Feb 10, 2021 14:15
[2021-02-10 15:00] VITALS: BP 96/57
[2021-02-10] MEDS ORDERED: METO-239 PO (16:12)
--- NOTE | 2021-02-10 17:34 | NUR ---
Discharge Note: JEANA ARSHAD Discharge instructions and discharge home medications reviewed with Patient and a copy given. All questions have been answered and understanding verbalized. The following instructions and handouts were given: discharge and follow up instructions Discontinued lines and drains: Peripheral IV intact. Patient discharged to Home or Self Care with Spouse via Ambulated
[2021-02-11] MEDS ORDERED: METOPROLOL SUCC 24HR ER 25 MG TAB.ER.24H. PO SCH (09:00)
== END 2021-02-10 17:35 | disposition home or self-care (01) ==
LOC: ER 15:44 → ED HOLD 17:10 → 2 NORTH 19:54
PROVIDERS: ADMIT Internal Medicine; ATTEND Internal Medicine
DX: I20.9 Angina pectoris, unspecified (principal); I11.0 Hypertensive heart disease with heart failure; I50.22 Chronic systolic (congestive) heart failure; K21.9 Gastro-esophageal reflux disease without esophagitis; H81.09 Meniere's disease, unspecified ear; R11.2 Nausea with vomiting, unspecified; M19.90 Unspecified osteoarthritis, unspecified site; E11.9 Type 2 diabetes mellitus without complications; E78.5 Hyperlipidemia, unspecified; I49.3 Ventricular premature depolarization; I25.2 Old myocardial infarction; Z87.891 Personal history of nicotine dependence; Z95.5 Presence of coronary angioplasty implant and graft
CPT/HCPCS: 36415; 70450; 71045; 80053; 83690; 83880; 84443; 84484; 85007; 85025; 93005; 96374; 99285; G0378; J2405; G0379